=== PATIENT | female | born 1985 | race Caucasian/White ===

== ENCOUNTER 2019-02-16 15:37 | Emergency (ER) | payer OTHER ==
[~2019-02-16] VITALS: Ht 167.6 cm; Wt 72.6 kg
[~2019-02-16 15:37] MED LIST: AMOXICILLIN875 MG PO; IBUPROFEN800 MG PO; NORCO 5-325 TA1 EACH PO; PROTONIX40 MG PO
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
[2019-02-16] MEDS ORDERED: CYCLOBENZAPRINE5 MG PO (17:36)
[2019-02-16] MEDS ORDERED: NAPROSYN500 MG PO (17:36)
== END 2019-02-16 17:50 | disposition home or self-care (01) ==
LOC: ED 15:37
DX: S16.1XXA Strain of muscle, fascia and tendon at neck level, initial encounter (principal); Z87.442 Personal history of urinary calculi; V49.9XXA Car occupant (driver) (passenger) injured in unspecified traffic accident, initial encounter
CPT/HCPCS: 99283

== ENCOUNTER 2019-02-17 15:01 | Emergency (ER) | payer OTHER ==
[~2019-02-17] VITALS: Ht 167.6 cm; Wt 72.6 kg
[~2019-02-17 15:01] MED LIST changes: +CYCLOBENZAPRINE5 MG PO; +NAPROSYN500 MG PO
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
== END 2019-02-17 16:25 | disposition home or self-care (01) ==
LOC: ED 15:01
DX: S16.1XXA Strain of muscle, fascia and tendon at neck level, initial encounter (principal); Z87.442 Personal history of urinary calculi; V89.2XXA Person injured in unspecified motor-vehicle accident, traffic, initial encounter
CPT/HCPCS: 72040; 99283

== ENCOUNTER 2019-09-20 17:57 | Emergency (ER) | payer OTHER ==
[~2019-09-20] VITALS: Ht 167.6 cm; Wt 72.6 kg
--- OUTSIDE RECORDS SUMMARY | ~2019-09-20 | XMS | Encounter Summary ---
Demographics + + + | Address | [address] | | | [place] [address] | + + + | Home Phone | | + + + | Preferred Language | Unknown | + + + | Marital Status | Single | + + + | Moravian Affiliation | 1013 | + + + | Race | Unknown | + + + | Ethnic Group | Unknown | + + + Author + + + | Author | [facility] | | | and [place] | + + + | Organization | [facility] | | | and [place] | + + + | Address | Unknown | + + + | Phone | Unavailable | + + + Support + + +---------+ + | Name | Relationship | Address | Phone | + + +---------+ + | Kirti Colon | ECON | Unknown | | + + +---------+ + | Cindyjennifer Butcher | ECON | Unknown | | + + +---------+ + Care Team Providers + +------+ + | Care Gusset Stitcher Name | Role | Phone | + +------+ + PCP | Unavailable | + +------+ + Encounter Details +--------+ + + + + | Date | Type | Department | Care Team | Description | +--------+ + + + + | 03/30/ | Hospital | [facility] | Memo Naidu T | | | 2005 | Encounter | [facility] | [address] | | | | | [address] | [place] [address] | | | | | [address] | [phone] | | | | | [place], [place] | | | | | | [address] | | | | | | [phone] | | | +--------+ + + + + Social History + +-------+ +--------+------+ | Tobacco Use | Types | Packs/Day | Years | Date | | | | | Used | | + +-------+ +--------+------+ | Never Assessed | | | | | + +-------+ +--------+------+ + + + | Sex Assigned at | Date Recorded | | | | + + + | Not on file | | + + + + + + + | Job Start Date | Occupation | Industry | + + + + | Not on file | Not on file | Not on file | + + + + + + + + | Travel History | Travel Start | Travel End | + + + + + + | No recent travel history available. | + + documented as of this encounter Plan of Treatment Not on filedocumented as of this encounter Visit Diagnoses Not on filedocumented in this encounter"
--- OUTSIDE RECORDS SUMMARY | ~2019-09-20 | XMS | Encounter Summary ---
Demographics + + + | Address | [address] | | | [place] [address] | + + + | Home Phone | | + + + | Preferred Language | Unknown | + + + | Marital Status | Single | + + + | Congregation Affiliation | 1013 | + + + | Race | Unknown | + + + | Ethnic Group | Unknown | + + + Author + + + | Author | [facility] | | | and [place] | + + + | Organization | [facility] | | | and [place] | + + + | Address | Unknown | + + + | Phone | Unavailable | + + + Support + + +---------+ + | Name | Relationship | Address | Phone | + + +---------+ + | Kirti Colon | ECON | Unknown | | + + +---------+ + | Cindy Butcher | ECON | Unknown | | + + +---------+ + Care Team Providers + +------+ + | Care Security Specialist Name | Role | Phone | + +------+ + | Gordon Rivero MD | PCP | | + +------+ + Encounter Details +--------+ + + + + | Date | Type | Department | Care Team | Description | +--------+ + + + + | 02/22/ | Hospital | [facility] | Abundio Taveras MD [address] | Flank pain; | | 2013 | Encounter | [facility] | [address] | Menorrhagia | | | | CLINICAL LAB SERVS | [place] [address] | | | | | [address] | [phone] | | | | | [place], [place] | | | | | | [address] | | | | | | [phone] | | | +--------+ + + + + Social History + + + +--------+------+ | Tobacco Use | Types | Packs/Day | Years | Date | | | | | Used | | + + + +--------+------+ | Current Every Day | Cigarettes | 0.25 | 3 | | | Smoker | | | | | + + + +--------+------+ + +---+---+---+ | Smokeless Tobacco: | | | | | Never Used | | | | + +---+---+---+ + + +---------+ + | Alcohol Use | Drinks/Week | oz/Week | Comments | + + +---------+ + | Yes | | | Last ETOH 11/2012 | + + +---------+ + + + + | Sex Assigned at [...] + + documented as of this encounter Medications at Time of Discharge + + + +---------+ + + | Medication | Sig | Dispensed | Refills | Start | End Date | | | | | | Date | | + + + +---------+ + + | cholecalciferol | Take 2 tablets by | 60 each | 12 | 10/15/19 | | | (VITAMIN D-3) 2000 | mouth Daily. For | | | 14 | | | UNITS TABS | . | | | | | + + + +---------+ + + | docusate sodium | Take 1-2 capsules by | 60 | 2 | 08/28/20 | | | (COLACE) 100 mg | mouth Daily. | capsule | | 13 | | | capsuleIndications: | | | | | | | Constipation in | | | | | | | | | | | | | + + + +---------+ + + | ibuprofen | Take 1 tablet by | 60 | 0 | 10/15/19 | | | (ADVIL,MOTRIN) 600 | mouth every 8 hours | tablet | | 14 | | | MG tablet | as needed for Pain. | | | | | + + + +---------+ + + | | Take 1 tablet by | 90 | 4 | 08/28/20 | | | multivitamin | mouth Daily. | tablet | | 13 | | | tabletIndications: | | | | | | | Supervision of other | | | | | | | normal | | | | | | + + + +---------+ + + | albuterol (PROAIR | Inhale 2 puffs into | 2 | 2 | 08/28/20 | | | HFA) 90 mcg/puff | the lungs every 6 | Inhaler | | 13 | 4 | | inhalerIndications: | hours as needed for | | | | | | Asthma | Wheezing. | | | | | + + + +---------+ + + | nitrofurantoin | Take 1 capsule by | 20 | 0 | 02/23/20 | | | (MACROBID) 100 mg | mouth 2 times daily | capsule | | 14 | 4 | | capsuleIndications: | for 10 days. | | | | | | UTI (lower urinary | | | | | | | tract infection) | | | | | | + + + +---------+ + + documented as of this encounter Plan of Treatment Not on filedocumented as of this encounter Procedures + +--------+ + + + | Procedure Name | Priori | Date/Time | Associated Diagnosis | Comments | | | ty | | | | + +--------+ + + + | HCG, URINE, QUAL | Routin | 02/22/2014 | Flank pain | Results for this | | | e | 3:42 PM | Menorrhagia | procedure are in the | | | | PDT | | results section. | + +--------+ + + + | URINALYSIS WITH | Routin | 02/22/2014 | Flank pain | Results for this | | MICROSCOPIC WITH | e | 2:54 PM | | procedure are in the | | CULTURE IF INDICATED | | PDT | | results section. | + +--------+ + + + | CULTURE, URINE | Routin | 02/22/2014 | | Results for this | | | e | 2:54 PM | | procedure are in the | | | | PDT | | results section. | + +--------+ + + + documented in this encounter Results HCG, Urine, Qual (02/22/2014 3:42 PM PDT) + + + +------- ------+ + | Component | Value | Ref Range | Perfor med | Pathologist | | | | | At | Signature | + + + +------- ------+ + | | NegComment: Performed | | [facility] | | | Test, | by [facility] [address] | | [address] [facility] [address] | | | Urine, POC | [address] [facility] [address] | | CORE | | | |Performed by [facility] [address] [facility] [address] | | LABORA TORY | | + + + +------- ------+ + + + | Specimen | + + | Urine specimen | | (specimen) - Urine, | | Unspecified Source | + + + + + + + | Performing | Address | City/State/Zipcode | Phone Number | | Organization | | | | + + + + + | [facility] | [address] [place] [address] [place] | [place] [address] | [phone] | | [facility] | | | | | LABORATORY | | | | + + + + + Urinalysis with Microscopic with Culture if Indicated (02/22/2014 2:54 PM PDT) + + + +-- + + | Component | Value | Ref Range | P erformed | Pathologist | | | | | A t | Signature | + + + +-- + + | CULTURE | Yes | | [facility] | | | SENT | | | [facility] | | | | | | [facility] | | | | | | L ABORATORY | | + + + +-- + + | Color, | Straw | | [facility] | | | Urine | | | [facility] | | | | | | C [facility] | | | | | | L ABORATORY | | + + + +-- + + | Clarity | Hazy | | [facility] | | | | | | [facility] | | | | | | C O[facility] | | | | | | L ABORATORY | | + + + +-- + + | Glucose, | Negative | Negative | [facility] | | | Urine | | | [facility] | | | | | | C ORE | | | | | | L ABORATORY | | + + + +-- + + | Ketones, | Negative | Negative | [facility] | | | Urine | | | [facility] | | | | | | C ORE | | | | | | L ABORATORY | | + + + +-- + + | Bilirubin, | Negative | Negative | [facility] | | | Urine | | | [facility] | | | | | | C ORE | | | | | | L ABORATORY | | + + + +-- + + | Specific | 1.005 (A) | 1.005 - 1.030 | [facility] | | | [place] | | | [facility] | | | | | | C ORE | | | | | | L ABORATORY | | + + + +-- + + | pH, Urine | 5.5 | 5.0 - 9.0 | [facility] | | | | | | [facility] | | | | | | C ORE | | | | | | L ABORATORY | | + + + +-- + + | Protein, | Negative | Negative | [facility] | | | Urine | | | [facility] | | | | | | C ORE | | | | | | L ABORATORY | | + + + +-- + + | Nitrite, | Negative | Negative | [facility] | | | Urine | | | [facility] | | | | | | C ORE | | | | | | L ABORATORY | | + + + +-- + + | Blood, | Negative | Negative | [facility] | | | Urine | | | [facility] | | | | | | C ORE | | | | | | L ABORATORY | | + + + +-- + + | Leukocyte | Large (A) | Negative | [facility] | | | Esterase, | | | [facility] | | | Urine | | | C [facility] | | | | | | L ABORATORY | | + + + +-- + + | SQUAMOUS | <1 | 0 - 2 /hpf | [facility] | | | EPITHELIAL | | | [facility] | | | UA | | | C ORE | | | | | | L ABORATORY | | + + + +-- + + | WBC UA | 46 (H) | 0 - 5 /hpf | [facility] | | | | | | [facility] | | | | | | C ORE | | | | | | L ABORATORY | | + + + +-- + + | RBC UA | 0 | 0 - 5 /hpf | [facility] | | | | | | [facility] | | | | | | C ORE | | | | | | L ABORATORY | | + + + +-- + + | BACTERIA UA | 1+ (A) | None | [facility] | | | | | | [facility] | | | | | | C ORE | | | | | | L ABORATORY | | + + + +-- + + | AMORPHOUS | None | None | [facility] | | | CRYSTALS | | | [facility] | | | | | | C ORE | | | | | | L ABORATORY | | + + + +-- + + | MUCUS UA | NoneComment: Performed | None | [facility] | | | | by [facility] [address] | | [facility] | | | | [place] [address] | | C ORE | | | |Performed by [facility] [address] [place] [address] | | L ABORATORY | | + + + +-- + + + + | Specimen | + + | Urine specimen | | (specimen) | + + + + + + + | Performing | Address | City/State/Zipcode | Phone Number | | Organization | | | | + + + + + | [facility] | [address] | [place] [address] | [phone] | | [facility] | | | | | LABORATORY | | | | + + + + + Culture, Urine (02/22/2014 2:54 PM PDT) + + + + + + | Component | Value | Ref Range | Performed | Pathologist | | | | | At | Signature | + + + + + + | FINAL | Greater than 100,000 | | [facility] | | | REPORT | cfu/ml Escherichia coli | | [facility] | | | | | | CORE | | | | | | LABORATORY | | + + + + + + | Organism | EsccolComment: | | [facility] | | | Type | Performed by [facility] | | [facility] | | | | [address] | | CORE | | | | [place] [address] | | LABORATORY | | + + + + + + + + | Specimen | + + | Urine specimen | | (specimen) | + + + + + + + | Organism | Antibiotic | Method | Susceptibility | + + + + + | Escherichia coli | Amoxicillin + | MINIMUM INHIBITORY | 8: Sensitive | | | Clavulanate | CONCENTRATION | | + + + + + | Escherichia coli | Ampicillin | MINIMUM INHIBITORY | >=32: Resistant | | | | CONCENTRATION | | + + + + + | Escherichia coli | Ampicillin + | MINIMUM INHIBITORY | >=32: Resistant | | | Sulbactam | CONCENTRATION | | + + + + + | Escherichia coli | Cefazolin | MINIMUM INHIBITORY | <=4: Sensitive | | | | CONCENTRATION | | + + + + + | Escherichia coli | Ceftriaxone | MINIMUM INHIBITORY | <=1: Sensitive | | | | CONCENTRATION | | + + + + + | Escherichia coli | Ciprofloxacin | MINIMUM INHIBITORY | <=0.25: Sensitive | | | | CONCENTRATION | | + + + + + | Escherichia coli | Ertapenem | MINIMUM INHIBITORY | <=0.5: Sensitive | | | | CONCENTRATION | | + + + + + | Escherichia coli | Gentamicin | MINIMUM INHIBITORY | <=1: Sensitive | | | | CONCENTRATION | | + + + + + | Escherichia coli | Levofloxacin | MINIMUM INHIBITORY | <=0.12: Sensitive | | | | CONCENTRATION | | + + + + + | Escherichia coli | Nitrofurantoin | MINIMUM INHIBITORY | <=16: Sensitive | | | | CONCENTRATION | | + + + + + | Escherichia coli | Piperacillin + | MINIMUM INHIBITORY | <=4: Sensitive | | | Tazobactam | CONCENTRATION | | + + + + + | Escherichia coli | Tobramycin | MINIMUM INHIBITORY | <=1: Sensitive | | | | CONCENTRATION | | + + + + + | Escherichia coli | Trimethoprim + | MINIMUM INHIBITORY | <=20: Sensitive | | | Sulfamethoxazole | CONCENTRATION | | + + + + + +---+ + | | Comment: Performed | | | by [facility] [address] [place] | | | [place] [address] | +---+ + + + + + + | Performing | Address | City/State/Zipcode | Phone Number | | Organization | | | | + + + + + | [facility] | [address] | [place], [place] [address] | [phone] | | [facility] | | | | | LABORATORY | | | | + + + + + documented in this encounter Visit Diagnoses + + | Diagnosis | + + | Flank pain Abdominal pain, unspecified site | + + | Menorrhagia Excessive or frequent menstruation | + + documented in this encounter"
--- OUTSIDE RECORDS SUMMARY | ~2019-09-20 | XMS | Encounter Summary ---
Demographics + + + | Address | [address] | | | [place] [address] | + + + | Home Phone | | + + + | Preferred Language | Unknown | + + + | Marital Status | Single | + + + | Pentecostalism Affiliation | 1013 | + + + | Race | Unknown | + + + | Ethnic Group | Unknown | + + + Author + + + | Author | [facility] | | | and [place] | + + + | Organization | [facility] | | | and [place] | + + + | Address | Unknown | + + + | Phone | Unavailable | + + + Support + + +---------+ + | Name | Relationship | Address | Phone | + + +---------+ + | Kirti Colon | ECON | Unknown | | + + +---------+ + | Cindy Hadley | ECON | Unknown | | + + +---------+ + Care Team Providers + +------+ + | Care Breakfast Manager Name | Role | Phone | + +------+ + | Camelia Alvarenga MD | PCP | | + +------+ + Encounter Details +--------+ + + + + | Date | Type | Department | Care Team | Description | +--------+ + + + + | 09/17/ | Abstract | [facility] | Camelia Alvarenga, | Depression; | | 2011 | | Group [facility] | Retired | Anxiety; | | | | Family Medicine | | Eczema; | | | | [address] [address] [facility] | | Bladder infection; | | | | - [address] | | Insomnia | | | | [place], [place] | | | | | | [address] | | | | | | [phone] | | | +--------+ + + + [...] | + +--------+ + + + | PAP SMEAR | Routin | 09/13/2010 | | | | | e | 4:17 PM | | | | | | PST | | | + +--------+ + + + documented in this encounter Results Pap Smear (09/13/2010 4:17 PM PST) + + | Specimen | + + | PAP LBC | + + documented in this encounter Visit Diagnoses + + | Diagnosis | + + | Depression Depressive disorder, not elsewhere classified | + + | Anxiety Anxiety state, unspecified | + + | Eczema Contact dermatitis and other eczema, due to unspecified cause | + + | Bladder infection Cystitis, unspecified | + + | Insomnia Insomnia, unspecified | + + documented in this encounter"
--- OUTSIDE RECORDS SUMMARY | ~2019-09-20 | XMS | Encounter Summary ---
Demographics + + + | Address | [address] | | | [place] [address] | + + + | Home Phone | | + + + | Preferred Language | Unknown | + + + | Marital Status | Single | + + + | Religion Affiliation | 1013 | + + + | Race | Unknown | + + + | Ethnic Group | Unknown | + + + Author + + + | Author | [facility] | | | and [place] | + + + | Organization | [facility] | | | [...] Team Providers + +------+ + | Care Sewing Machines Salesperson Name | Role | Phone | + +------+ + | Gordon Rivero MD | PCP | | + +------+ + Reason for Visit + + + | Reason | Comments | + + + | Routine | 37+3 | | Visit | | + + + Encounter Details +--------+ + + + + | Date | Type | Department | Care Team | Description | +--------+ + + + + | 10/04/ | Routine | [facility] | Gordon Rivero MD | GA: 37w3d | | 2014 | | [facility] | [address] | | | | | [facility] [address] | [place] [address] | | | | | [address] [place] | [phone] | | | | | [place] | | | | | | [address] | | | | | | [phone] | | | +--------+ + + + [...] + + documented as of this encounter Last Filed Vital Signs + + + + + | Vital Sign | Reading | Time Taken | Comments | + + + + + | Blood Pressure | 110/60 | 10/04/2013 10:03 AM | | | | | PST | | + + + + + | Pulse | - | - | | + + + + + | Temperature | - | - | | + + + + + | Respiratory Rate | - | - | | + + + + + | Oxygen Saturation | - | - | | + + + + + | Inhaled Oxygen | - | - | | | Concentration | | | | + + + + + | Weight | 92.4 kg (203 lb 12.8 | 10/04/2013 10:03 AM | | | | oz) | PST | | + + + + + | Height | - | - | | + + + + + | Body Mass Index | 32.89 | 09/14/2013 8:46 PM | | | | | PST | | + + + + + documented in this encounter Progress Notes Gordon Rivero MD - 10/04/2013 10:50 AM PST28 y.o. A POS @ 37w3d by 27wk US, here f or routine OB visit. Good movement, no vaginal d/c or bleeding, no dysuria, no constipation. Fundal height, FHT, weight gain and vital signs are appropriate. Recent labs reviewed and reassuring including GBS negative and repeat infectious disease te sting negative. UDS + for opiates. Again states she has no explanation but denies relapse. Routine care, reinforced we are available to help with relapse and resources, and discussed the following today: s/sx ROM. F/u 1 weeks for ROB rvind lara, Samaria Hoover MD - 10/04/2013 10:42 AM PST Janie Pinedo is a 28 y. o. A POS female being seen today for her obstetrical visit by Gordon Rivero MD . Sh e is at 37w3d weeks gestation. Patient reports no complaints. movement: normal. Patient's last menstrual period was 01/21/2013.. SAMMY is 10/22/2013, by Ultrasound Late to care, last heroin May - UDS last week + for opiates. S=D [place] OCP - will need prog only solution while BFing. Assessment and Plan: rtc in 1 week. MFM for enlarged ventricles. F/u Wednesday. documented in th is encounter Plan of Treatment Not on filedocumented as of this encounter Results Drugs of Abuse, Screen, Urine (10/04/2013 12:00 PM PST) + + + + + + | Component | Value | Ref Range | Performed | Pathologist | | | | | At | Signature | + + + + + + | Tox Comment | See NoteComment: Drug | | [facility] | | | | screen results are for | | [facility] | | | | medical use only. Use | | [facility] | | | | for legal or | | LABORATORY | | | | disciplinary purposes | | | | | | requires confirmation by | | | | | | alternatemethods. | | | | + + + + + + | THC 20 | Negative | 0 - 20 ng/mL | [facility] | | | URINE | | | [facility] | | | | | | CORE | | | | | | LABORATORY | | + + + + + + | Cocaine | Negative | 0 - 300 ng/mL | [facility] | | | | | | [facility] | | | | | | CORE | | | | | | LABORATORY | | + + + + + + | Amphetamine | Negative | 0 - 1000 ng/mL | [facility] | | | | | | [facility] | | | | | | CORE | | | | | | LABORATORY | | + + + + + + | Opiate | Negative | 0 - 300 ng/mL | [facility] | | | Screen, | | | [facility] | | | Urine | | | CORE | | | | | | LABORATORY | | + + + + + + | Benzodiazep | Negative | 0 - 200 ng/mL | [facility] | | | sanya | | | [facility] | | | Screen, | | | CORE | | | Urine | | | LABORATORY | | + + + + + + | ALCOHOL, | Negative | 0 - 50 | [facility] | | | URINE | | | [facility] | | | | | | CORE | | | | | | LABORATORY | | + + + + + + | Creatinine, | 68.30 | >=20.00 mg/dL | [facility] | | | Urine | | | [facility] | | | | | | CORE | | | | | | LABORATORY | | + + + + + + | pH, Urine | 6.7 | 5.0 - 8.0 | [facility] | | | | | | [facility] | | | [...] + | [facility] | [address] | [place] [address] | [phone] | | [facility] | | | | | LABORATORY | | | | + + + + + documented in this encounter Visit Diagnoses + + | Diagnosis | + + | Supervision of other normal - Primary | + + | Polysubstance abuse (HCC) Other, mixed, or unspecified nondependent drug abuse, | | unspecified | + + documented in this encounter"
--- OUTSIDE RECORDS SUMMARY | ~2019-09-20 | XMS | Encounter Summary ---
Demographics + + + | Address | [address] | | | [place] [address] | + + + | Home Phone | | + + + | Preferred Language | Unknown | + + + | Marital Status | Single | + + + | Tenriism Affiliation | 1013 | + + + | Race | Unknown | + + + | Ethnic Group | Unknown | + + + Author + + + | Author | [facility] | | | and [place] | + + + | Organization | [facility] | | | and [place] | + + + | Address | Unknown | + + + | Phone | Unavailable | + + + Support + + +---------+ + | Name | Relationship | Address | Phone | + + +---------+ + | Kirit Colon | ECON | Unknown | | + + +---------+ + | Cindy Butcher | ECON | Unknown | | + + +---------+ + Care Team Providers + +------+ + | Care Ruby On Rails Developer Name | Role | Phone | + +------+ + | Gordon Rivero MD | PCP | | + +------+ + Reason for Visit + + + | Reason | Comments | + + + | Appointment | Missed IUD appt | + + + Encounter Details +--------+ + + + + | Date | Type | Department | Care Team | Description | +--------+ + + + + | 01/08/ | Telephone | [facility] | Gordon Rivero MD | Appointment (Missed | | 2013 | | [facility] | [address] | IUD appt) | | | | [facility] [address] | [place] [address] | | | | | SE[place] MD | [phone] | | | | | [place] | | | | | | [address] | | | | | | [phone] | | | +--------+ + + + [...]
--- OUTSIDE RECORDS SUMMARY | ~2019-09-20 | XMS | Encounter Summary ---
Demographics + + + | Address | [address] | | | [place] [address] | + + + | Home Phone | | + + + | Preferred Language | Unknown | + + + | Marital Status | Single | + + + | Adventist Affiliation | 1013 | + + + | Race | Unknown | + + + | Ethnic Group | Unknown | + + + Author + + + | Author | [facility] | | | and [place] | + + + | Organization | [facility] | | | [...] Team Providers + +------+ + | Care Mattress Finisher Name | Role | Phone | + +------+ + | Gordon Rivero MD | PCP | | + +------+ + Reason for Visit + + + | Reason | Comments | + + + | Flank Pain | X 2 days- no fever | + + + Encounter Details +--------+---------+ + + + | Date | Type | Department | Care Team | Description | +--------+---------+ + + + | 02/22/ | Office | [facility] | Abundio Taveras MD [address] | Flank pain (Primary | | 2013 | Visit | [facility] | [facility] | Dx); UTI (lower | | | | [facility] [address] | [place] [address] | urinary tract | | | | [facility] [place] | [phone] | infection); | | | | [place], [place] | | Menorrhagia | | | | [address] | | | | | | [phone] | | | +--------+---------+ + + + Social History + + [...] + + + | Blood Pressure | 110/72 | 02/22/2014 2:24 PM | | | | | PDT | | + + + + + | Pulse | 84 | 02/22/2014 2:24 PM | | | | | PDT | | + + + + + | Temperature | 36.2 C (97.2 F) | 02/22/2014 2:24 PM | | | | | PDT | | + + + + + | Respiratory Rate | 20 | 02/22/2014 2:24 PM | | | | | PDT | | + + + + + | Oxygen Saturation | - | - | | + + + + + | Inhaled Oxygen | - | - | | | Concentration | | | | + + + + + | Weight | 74.2 kg (163 lb 9 | 02/22/2014 2:24 PM | | | | oz) | PDT | | + + + + + | Height | 167.6 cm (5' 6") | 02/22/2014 2:24 PM | | | | | PDT | | + + + + + | Body Mass Index | 26.4 | 02/22/2014 2:24 PM | | | | | PDT | | + + + + + documented in this encounter Patient Instructions Patient Instructions Abundio Taveras MD - 02/22/2014 2:56 PM PDT Bladder Infection,Female (Adult) A bladder infection ("cystitis" or "UTI") usually causes a constant urge to urinate and a b urning when passing urine. Urine may be cloudy, smelly or dark. There may be pain in the low er abdomen. A bladder infection occurs when bacteria from the vaginal area enter the bladder opening (urethra). This can occur from sexual intercourse, wearing tight clothing, dehydrat ion and other factors. Home Care: Drink lots of fluids (at least 6-8 glasses a day, unless you must restrict fluids for ot her medical reasons). This will force the medicine into your urinary system and flush the ba cteria out of your body. Avoid sexual intercourse until your symptoms are gone. Avoid caffeine, alcohol and spicy foods. These can irritate the bladder. A bladder infection is treated with antibiotics. You may also be given Pyridium (generic = phenazopyridine) to reduce the burning sensation. This medicine will cause your urine to become a bright orange color. The orange urine may stain clothing. You may wear a pad or hernández ty-liner to protect clothing. Preventing Future Infections: Always wipe from front to back after a bowel movement. Keep the genital area clean and dry. Drink plenty of fluids each day to avoid dehydration. Both sexual partners should wash before intercourse. Urinate right after intercourse to flush out the bladder. Wear cotton underwear and cotton-lined panty hose; avoid tight-fitting pants. If you are on control pills and are having frequent bladder infections, discuss wi th your doctor. Follow Up: Return to this facility or see your doctor if ALL symptoms are not gone after three days of treatment. Get Prompt Medical Attention if any of the following occur: Fever of 100.4F (38C) or higher, or as directed by your healthcare provider No improvement by the third day of treatment Increasing back or abdominal pain Repeated vomiting; unable to keep medicine down Weakness, dizziness or fainting Vaginal discharge Pain, redness or swelling in the labia (outer vaginal area) [id number] [facility], [address] [place] [address], [place] [address]. All rights reserve d. This information is not intended as a substitute for professional medical care. Always fo llow your healthcare professional's instructions. documented in this encounter Progress Notes Abundio Taveras MD - 02/22/2014 5:27 PM PDTThe patient was seen with the medical student and I confirmed the pertinent history. I confirmed pertinent physical exam findings, and agree with physical exam as documented. The indications for treatment were reviewed and I agree with the overall assessment and car e plan as documented. Abundio Taveras bundio Taveras MD - 02/22/2014 3:01 PM PDT Subjective: Patient ID: Janie Yoo is a 28 y.o. female with a history of kidney s tones and recurrent cystitis who presents with R flank pain. HPI Patient has had two days of stabbing R back pain. She feels fatigued and states that her pa in feels similar to when she had both kidney stones and previous UTIs. She denies dysuria, frequency, urgency, hematuria, dyspareunia, nausea, vomiting and fever. She complains of chills and suprapubic pain. Patient has been off contraception since December, previously on Depo. Has had sporadic and lo ng-lasting menses since December. She states that she is currently having her menses. She state s it is possible that she could be . Patient's medications, allergies, past medical, surgical, social and family histories were reviewed and updated as appropriate. Review of Systems Constitutional: Positive for chills and fatigue. Negative for fever. Respiratory: Negative for shortness of breath. Cardiovascular: Negative for palpitations. Gastrointestinal: Positive for abdominal pain. Negative for nausea and vomiting. Genitourinary: Positive for flank pain. Negative for dysuria, urgency, frequency, hematuria , decreased urine volume, difficulty urinating and dyspareunia. Objective: Physical Exam Constitutional: She is oriented to person, place, and time. She appears well-developed and well-nourished. HENT: Head: Normocephalic and atraumatic. Neck: Normal range of motion. Cardiovascular: Regular rhythm and intact distal pulses. Exam reveals no gallop and no fri ction rub. No murmur heard. Slightly tachycardic Pulmonary/Chest: Effort normal and breath sounds normal. No respiratory distress. She has n o wheezes. She has no rales. She exhibits no tenderness. Abdominal: Soft. Bowel sounds are normal. She exhibits no distension and no mass. There is tenderness. There is guarding. Suprapubic tenderness Musculoskeletal: R flank pain Neurological: She is alert and oriented to person, place, and time. Urinalysis: + for moderate leukocyte esterase Trace blood Assessment: Janie Yoo is a 28 y.o. female with a history of kidney stones and re current cystitis who presents with suspected UTI. The patient has suprapubic pain and positi ve leukocyte esterase in the urine. She is afebrile and has R flank pain vs. R CVA tendernes s, so very unlikely to be pyelonephritis. The patient is currently having her menses so she is unlikely to be , although she has not been using contraception since December so it is possible that she could be . Plan: - F/u on urine test - Begin Nitrofurantoin 100 mg BID for 5 days, which would be safe to use if patient is preg nant - Patient understands that if she develops a fever, increased back pain, or dysuria to cont act the clinic or go to the ED NOTE: UPT was negative docum ented in this encounter Plan of Treatment Not on filedocumented as of this encounter Results HCG, Urine, Qual (02/22/2014 [...] | | | Urine, POC | Rd [address] [facility] [address] | | CORE | | | |Performed by [facility] [address] [facility] [address] | | LABORA TORY | | + [...] + + | [facility] | [address] | [place] [address] | [phone] | | [facility] | | | [...] | SENT | | | S T [facility] | [...] 1.030 | [facility] | | | [place] | | | S T [facility] | [...] | EPITHELIAL | | | S T [facility] | | | UA | | | [...] [facility] | | | | by [facility] [address] | [address] | | | | [place] [address] | | C ORE | | | |Performed by [facility] [address] [place] [address] | | L ABORATORY | | + + + +-- + + + + | Specimen | + + | Urine specimen | | (specimen) | + + + + + + + | Performing | Address | City/State/Zipcode | Phone Number | | Organization | | | | + + + + + | [facility] | [address] | [place] [address] | [phone] | | [facility] | | | | | LABORATORY | | | | + + + + + documented in this encounter Visit Diagnoses + + | Diagnosis | + + | Flank pain - Primary Abdominal pain, unspecified site | + + | UTI (lower urinary tract infection) Urinary tract infection, site not specified | + + | Menorrhagia Excessive or frequent menstruation | + + documented in this encounter
--- OUTSIDE RECORDS SUMMARY | ~2019-09-20 | XMS | Encounter Summary ---
Demographics + + + | Address | [address] | | | [place] [address] | + + + | Home Phone | | + + + | Preferred Language | Unknown | + + + | Marital Status | Single | + + + | Evangelical Affiliation | 1013 | + + + | Race | Unknown | + + + | Ethnic Group | Unknown | + + + Author + + + | Author | [facility] | | | and [place] | + + + | Organization | [facility] | | | [...] Team Providers + +------+ + | Care Retail Office Associate Name | Role | Phone | + +------+ + | Gordon Rivero MD | PCP | | + +------+ + Reason for Visit + + + | Reason | Comments | + + + | Care | here for pp check. Delivered 10/13/13 | + + + Encounter Details +--------+---------+ + + + | Date | Type | Department | Care Team | Description | +--------+---------+ + + + | 11/22/ | Office | [facility] | Gordon Rivero MD | care and | | 2013 | Visit | [facility] | [address] | examination (Primary | | | | [facility] [address] | [place] [address] | Dx); Dental | | | | [place] | [phone] | infection; | | | | [place], [place] | | Contraception | | | | [address] | | management; | | | | [phone] | | Polysubstance abuse; | | | | | | Encounter for | | | | | | smoking cessation | | | | | | counseling | +--------+---------+ + + + Social History [...] + + + | Blood Pressure | 108/64 | 11/22/2013 8:36 AM | | | | | PDT | | + + + + + | Pulse | 78 | 11/22/2013 8:36 AM | | | | | PDT | | + + + + + | Temperature | 36.6 C (97.8 F) | 11/22/2013 8:36 AM | | | | | PDT | | + + + + + | Respiratory Rate | 16 | 11/22/2013 8:36 AM | | | | | PDT | | + + + + + | Oxygen Saturation | - | - | | + + + + + | Inhaled Oxygen | - | - | | | Concentration | | | | + + + + + | Weight | 84.8 kg (187 lb) | 11/22/2013 8:36 AM | | | | | PDT | | + + + + + | Height | - | - | | + + + + + | Body Mass Index | 30.18 | 10/13/2013 8:44 AM | | | | | PST | | + + + + + documented in this encounter Patient Instructions Patient Instructions Kalli Anglin CMA - 11/22/2013 8:38 AM PDT Thank you for your recent visit. You may receive a survey in the mail, by returning the gonzales vey your input will help us improve. Thank you documented in this encounter Progress Notes Alexandrea Porras MD - 11/22/2013 9:05 AM PDTThe patient's medical care was reviewed during or immediately after the visit with the resident. The review included the patient's medica l history and diagnosis, the resident s findings on physical examination, and the treatmen t plan. I agree with the overall assessment and care plan. Any additional comments included below. Alexandrea Porras ordon Rivero MD - 0 11/22/2013 8:33 AM PDT Janie Yoo is a 28 y.o. female here for 6wk check from with 2nd deg perineal laceration repaired, bilateral periurethral 1st deg not repaired. De po-provera given after delivery. Also h/o dental infection and polysubstance abuse. No complaints today. Has not resumed sexual relations. vaginal bleeding finally stopped 1 -2 weeks ago. Denies depression. Has moved from friends house in with father of baby & sta yon good relationship. No drug cravings or relapse. Down to 2-3 cigarettes/day and thinkin g about quitting. exclusively without pain. Still wants Mirena. ROS: as per HPI and as noted below (blanks were not pertinent or not reviewed). Gen: Eye: HENT: Lymph: Resp: no SOB CV: no lightheadedness GI: : Skin: MSK: Neuro: Psy: PMH, FHx, SHx: above Physical Exam LMP 01/21/2013 | ? Unknown General: NAD, pleasant, appears stated age. Eye: sclera clear HENT: mucosa pink and moist. Right lower jaw slightly erythematous, improved from prior; p oor & broken teeth. CV: RRR no M/R/G Lung: respiration unlabored. CTA : bimanual exam with kalli as ditch tender. perineal laceration healed without evidence of seroma. Uterus fully involuted. No adnexal mass or tenderness. Psych: mood & affect bright, thought form logical and speech organized. Assessment/Plan: 1. care and examination Doing well 2. Dental infection Pt and I will call [facility] to request they see her, since they did initial ev aluation (pt states they now say they have too large a backlog to see her) 3. Contraception management Mirena counseling performed 4. Polysubstance abuse Support offered 5. Smoking cessation Advised set quit date & tell friends Follow-Up: 2 weeks for Connie Case discussed with Dr Porras. documented in this enco unter Plan of Treatment Not on filedocumented as of this encounter Visit Diagnoses + + | Diagnosis | + + | care and examination - Primary Routine follow-up | + + | Dental infection Acute apical periodontitis of pulpal origin | + + | Contraception management Unspecified contraceptive management | + + | Polysubstance abuse (HCC) Other, mixed, or unspecified nondependent drug abuse, | | unspecified | + + | Encounter for smoking cessation counseling Counseling on substance use and abuse | + + documented in this encounter"
--- OUTSIDE RECORDS SUMMARY | ~2019-09-20 | XMS | Encounter Summary ---
Demographics + + + | Address | [address] | | | [place] [address] | + + + | Home Phone | | + + + | Preferred Language | Unknown | + + + | Marital Status | Single | + + + | Yazidi Affiliation | 1013 | + + + | Race | Unknown | + + + | Ethnic Group | Unknown | + + + Author + + + | Author | [facility] | | | and [place] | + + + | Organization | [facility] | | [...] Team Providers + +------+ + | Care Gun Stock Maker Name | Role | Phone | + +------+ + PCP | Unavailable | + +------+ + Encounter Details +--------+ + + + + | Date | Type | Department | Care Team | Description | +--------+ + + + + | 03/30/ | Hospital | [facility] | Memo Naidu T | | | 2005 | Encounter | [facility] | [address] | | | | | [address] | [place] [address] | | | | | [address] | [phone] | | | | | [place], [place] | | | | | | [address] | | | | | | [phone] | | | +--------+ + + + [...]
--- OUTSIDE RECORDS SUMMARY | ~2019-09-20 | XMS | Encounter Summary ---
Demographics + + + | Address | [address] | | | [place] [address] | + + + | Home Phone | | + + + | Preferred Language | Unknown | + + + | Marital Status | Single | + + + | Oriental Orthodox Affiliation | 1013 | + + + | Race | Unknown | + + + | Ethnic Group | Unknown | + + + Author + + + | Author | [facility] | | | and [place] | + + + | Organization | [facility] | | | and [place] | + + + | Address | Unknown | + + + | Phone | Unavailable | + + + Support + + +---------+ + | Name | Relationship | Address | Phone | + + +---------+ + | Kirti Colon | ECON | Unknown | | + + +---------+ + | Cindy Ewingillion | ECON | Unknown | | + + +---------+ + Care Team Providers + +------+ + | Care Mirror Silverer Name | Role | Phone | + +------+ + | Meet Small MD | PCP | | + +------+ + Reason for Visit + + + | Reason | Comments | + + + | Medication Refill | | + + + Encounter Details +--------+ + + + + | Date | Type | Department | Care Team | Description | +--------+ + + + + | 05/17/ | Telephone | [facility] | Lin Reyes DO | Medication Refill | | 2013 | | [facility] | [address] | | | | | [address] | [place] [address] | | | | | [address] | [phone] | | | | | [place], [place] | | | | | | [address] | | | | | | [phone] | | | +--------+ + + + + Social History + + + +--------+------+ | Tobacco Use | Types | Packs/Day | Years | Date | | | | | Used | | + + + +--------+------+ | Current Every Day | Cigarettes | 0.25 | 6 | | | Smoker | | | | | + + + +--------+------+ + +---+---+---+ | Smokeless Tobacco: | | | | | Never Used | | | | + +---+---+---+ + + +---------+ + | Alcohol Use | Drinks/Week | oz/Week | Comments | + + +---------+ + | No | | | Last ETOH 11/2012 | [...] + | Diagnosis | + + | Contraception management - Primary Unspecified contraceptive management | + + | Krissy vaginitis Candidiasis of vulva and vagina | + + documented in this encounter"
--- OUTSIDE RECORDS SUMMARY | ~2019-09-20 | XMS | Encounter Summary ---
Demographics + + + | Address | [address] | | | [place] [address] | + + + | Home Phone | | + + + | Preferred Language | Unknown | + + + | Marital Status | Single | + + + | Baptist Affiliation | 1013 | + + + | Race | Unknown | + + + | Ethnic Group | Unknown | + + + Author + + + | Author | [facility] | | | and Jeffana | + + + | Organization | [facility] | | | and [...] Team Providers + +------+ + | Care Cash Checker Name | Role | Phone | + +------+ + | Gordon Rievro MD | PCP | | + +------+ + Reason for Visit Auth/Cert +--------+--------+ + + + + | Status | Reason | Specialty | Diagnoses / | Referred By | Referred To | | | | | Procedures | Contact | Contact | +--------+--------+ + + + + | Closed | | Obstetrics | Diagnoses | | Wsp | | | | | Due | | | | | | | 10/22/13, | | [address] | | | | | [address] | | [place], | | | | | | | [place] [address] | | | | | | | Phone: | | | | | | | [phone] | | | | | | | Fax: | | | | | | | [phone] | +--------+--------+ + + + + Encounter Details +--------+ + + + + | Date | Type | Department | Care Team | Description | +--------+ + + + + | 10/13/ | Anesthesia | [address] | Jose Mcwilliams, | | | 2013 | Event | [facility] | [address] | | | | | AND DELIVERY IP | [place] | | | | | [address] | [id number] | | | | | [place] | | | | | | [address] | Perry Lopez, | | | | | [phone] | [address] | | | | | | [place] | | | | | | [address] | | | | | | | | +--------+ + + + + Anesthesia Record + + + + + | Procedure Name | Responsible | Anesthesia Start | Anesthesia Stop Time | | | Anesthesiologist | Time | | + + + + + | labor epidural | Jose Mcwilliams MD | 10/13/13 1504 | 10/13/13 1841 | + + + + + +----+---+ + + | Da | T | Event | Comment | | te | i | | | | | m | | | | | e | | | +----+---+ + + | 01 | 1 | An Start | Reassessment prior to anesthesia induction/procedure. | | /3 | 5 | | | | 1/ | 0 | | | | 20 | 4 | | | | 14 | | | | +----+---+ + + | | 1 | Epi/spinal | | | | 5 | Stop | | | | 1 | | | | | 1 | | | +----+---+ + + | | 1 | Epidural | | | | 5 | Bolus | | | | 1 | | | | | 4 | | | +----+---+ + + | | 1 | Epidural | | | | 5 | Infusion | | | | 1 | Started | | | | 7 | | | +----+---+ + + | | 1 | Out of OR | | | | 5 | Device Stop | | | | 2 | | | | | 1 | | | +----+---+ + + | | 1 | | | | | 5 | | | | | 3 | | | | | 1 | | | +----+---+ + + | | 1 | An Stop | Patient handed off to recovery nurse. | | | 4 | | | | | 1 | | | +----+---+ + + | | 1 | Baby Deliv | | | | 8 | | | | | 4 | | | | | 1 | | | +----+---+ + + +------+ | Meds | +------+ + +---------+ | Name | Total | + +---------+ | lidocaine 1.5%-EPINEPHrine | 3 mL | | 1:200,000 (PF) | | + +---------+ | lidocaine 1% (PF) | 5 mL | + +---------+ | fentaNYL 2 mcg/mL - bupivacaine | 40.8 mL | | 0.125% epidural(LD strength) | | + +---------+ | lactated ringers (LR) infusion | 0 mL | + +---------+ + + | No agents on file. | + + + + | No blood administrations on file. | + + +--------+ + + + | Type | Details | Placement | Removal | +--------+ + + + | [READ | 10/13/13; 1025; Hematology, Blood | 10/13/13 1025 by | 10/14/13 0947 by | | ONLY] | Bank; 10/14/13946 | Deanne Bardales, | Maura Hernandez RN | | | | RN | | | Periph | | | | | eral | | | | | IV - | | | | | Single | | | | | Lumen | | | | | | | | | +--------+ + + + | Epidur | 10/13/13; 1510; see block note; | 10/13/13 151 by | 10/13/131899 by | | al/Spi | 10/13/131899 | Perry Lopez MD | Maura Hernandez RN | | nal | | | | +--------+ + + + documented in this encounter Social History + + + +--------+------+ | [...] this encounter Last Filed Vital Signs + +---------+ + + | Vital Sign | Reading | Time Taken | Comments | + +---------+ + + | Blood Pressure | 121/59 | 10/13/2013 3:18 PM | | | | | PST | | + +---------+ + + | Pulse | - | - | | + +---------+ + + | Temperature | - | - | | + +---------+ + + | Respiratory Rate | - | - | | + +---------+ + + | Oxygen Saturation | - | - | | + +---------+ + + | Inhaled Oxygen | - | - | | | Concentration | | | | + +---------+ + + | Weight | - | - | | + +---------+ + + | Height | - | - | | + +---------+ + + | Body Mass Index | - | - | | + +---------+ + + documented in this encounter Plan of Treatment Not on filedocumented as of this encounter Procedures + +--------+ + + + | Procedure Name | Priori | Date/Time | Associated Diagnosis | Comments | | | ty | | | | + +--------+ + + + | ANESTHESIA BLOCK | Routin | 10/13/2013 | | Results for this | | | e | 3:26 PM | | procedure are in the | | | | PST | | results section. | + +--------+ + + + documented in this encounter Results ANESTHESIA BLOCK (10/13/2013 3:26 PM PST) + + + | Narrative | Performed At | + + + | Perry Lopez MD 10/13/2013 15:26 Procedure Note Epidural | | | Procedure: Epidural, L2-3, Approach: Midline . Technique: | | | Catheter Indication: Patient in labor. Block requested by surgeon | | | or patient. Pre-procedure Events: Patient identified, Pre-op | | | evaluation completed, Airway assessed, Risks and benefits discussed, | | | Procedure consent obtained and Timeout performed. Patient | | | Positioning: Prep: ChloraPrep used. Skin local anesthetic: | | | Lidocaine 1% Needle: 18 G Deion (3.5 in). Loss of resistance | | | depth: 6 cm. LARRY - Saline. Catheter depth at skin: 11 cm Ease: | | | Easy. Attempts: 1. Dressings: Sterile Dressing and Tape. | | | Note: Negative blood aspirated, CSF return, paresthesia and test | | | dose. In labor room, patient ID, pause, monitors applied, epidural | | | placed without difficulty.. Performed by: Performing | | | provider: Jessica. | | + + + + + | Procedure Note | + + | Perry Lopez MD - 10/13/2013 3:25 PM PST Procedure NoteEpiduralProcedure: | | Epidural, L2-3, Approach: Midline .Technique: Catheter Indication: Patient in labor. | | Block requested by surgeon or patient. Pre-procedure Events: Patient identified, | | Pre-op evaluation completed, Airway assessed, Risks and benefits discussed, Procedure | | consent obtained and Timeout performed.Patient Positioning: Prep: ChloraPrep used. Skin | | local anesthetic: Lidocaine 1%Needle: 18 G Deion (3.5 in). Loss of resistance | | depth: 6 cm. LARRY - Saline.Catheter depth at skin: 11 cmEase: Easy.Attempts: 1. | | Dressings: Sterile Dressing and Tape. Note: Negative blood aspirated, CSF return, | | paresthesia and test dose. In labor room, patient ID, pause, monitors applied, epidural | | placed without difficulty..Performed by: Performing provider: Jessica. | |Needle: 18 G Deion (3.5 in). | |Loss of resistance depth: 6 cm. LARRY - Saline. | |Catheter depth at skin: 11 cm | | | |Ease: Easy. | |Attempts: 1. | |Dressings: Sterile Dressing and Tape. | |Note: Negative blood aspirated, CSF return, paresthesia and test dose. In labor room, duke mcintyre ID, pause, monitors applied, epidural placed without difficulty.. | | | | | |Performed by: | |Performing provider: Jessica. | + + documented in this encounter Visit Diagnoses Not on filedocumented in this encounter Administered Medications + +---------+ + + +------+ | Medication Order | MAR | Action | Dose | Rate | Site | | | Action | Date | | | | + +---------+ + + +------+ | fentaNYL 2 mcg/mL-bupivacaine | New Bag | 10/13/19 | 12 mL/hr | 12 mL/hr | | | 0.125%-NaCl 0.9% epidural | | 14 3:17 | | | | | CONTINUOUS PRN, Starting Fri | | PM PST | | | | | 10/13/13 at 1517, Anesthesia | | | | | | | Intra-op | | | | | | + +---------+ + + +------+ +---+---+ | | | +---+---+ + +-------+ +-------+---+---+ | lidocaine (PF) 1% injection | Given | 10/13/19 | 5 mLs | | | | PRN, Starting 10/13/13 at | | 14 3:14 | | | | | 1514, Anesthesia Intra-op | | PM PST | | | | + +-------+ +-------+---+---+ +---+---+ | | | +---+---+ + +-------+ +-------+---+---+ | lidocaine 1.5%-EPINEPHrine | Given | 10/13/19 | 3 mLs | | | | 1:200,000 (PF) injection | | 14 3:11 | | | | | EPIDURAL, PRN, Starting Fri | | PM PST | | | | | 10/13/13 at 1511, Anesthesia | | | | | | | Intra-op | | | | | | + +-------+ +-------+---+---+ +---+---+ | | | +---+---+ documented in this encounter"
--- OUTSIDE RECORDS SUMMARY | ~2019-09-20 | XMS | Encounter Summary ---
Demographics + + + | Address | [address] | | | [place] [address] | + + + | Home Phone | | + + + | Preferred Language | Unknown | + + + | Marital Status | Single | + + + | Buddhism Affiliation | 1013 | + + + | Race | Unknown | + + + | Ethnic Group | Unknown | + + + Author + + + | Author | [facility] | | | and Jeffana | + + + | Organization | [facility] | | [...] Team Providers + +------+ + | Care Skiing Teacher Name | Role | Phone | + +------+ + | Meet Small MD | PCP | | + +------+ + Reason for Visit + + + | Reason | Comments | + + + | Appointment | with [facility] | + + + Encounter Details +--------+ + + + + | Date | Type | Department | Care Team | Description | +--------+ + + + + | 06/28/ | Telephone | [facility] | Margarita Harris | Appointment (with | | 2013 | | [facility] | [address] | RBKasia) | | | | [facility] [address] | | | | | | [address] | | | | | | [place] | | | | | | [address] | | | | | | [phone] | | | +--------+ + + + [...]
--- OUTSIDE RECORDS SUMMARY | ~2019-09-20 | XMS | Encounter Summary ---
Demographics + + + | Address | [address] | | | [place] [address] | + + + | Home Phone | | + + + | Preferred Language | Unknown | + + + | Marital Status | Single | + + + | Jainism Affiliation | 1013 | + + + [...] Team Providers + +------+ + | Care Programs Assistant Name | Role | Phone | + +------+ + | Gordon Rivero MD | PCP | | + +------+ + Reason for Visit + + + | Reason | Comments | + + + | Dental Problem | | + + + | Vaginitis | | + + + Encounter Details +--------+--------+ + + + | Date | Type | Department | Care Team | Description | +--------+--------+ + + + | 10/10/ | Refill | [facility] | Gordon Rivero MD | Dental Problem; | | 2013 | | [facility] | [address] | Vaginitis | | | | [address] | [place] [address] | | | | | [place] | [phone] | | | | | [place], [place] | | | | | | [address] | | | | | | [phone] | | | +--------+--------+ + + + Social History + + [...] + | Diagnosis | + + | BV (bacterial vaginosis) - Primary Vaginitis and vulvovaginitis, unspecified | + + | Dental infection Acute apical periodontitis of pulpal origin | + + documented in this encounter"
--- OUTSIDE RECORDS SUMMARY | ~2019-09-20 | XMS | Encounter Summary ---
Demographics + + + | Address | [address] | | | [place] [address] | + + + | Home Phone | | + + + | Preferred Language | Unknown | + + + | Marital Status | Single | + + + | Adventism Affiliation | 1013 | + + + [...] | | + + +---------+ + | Cindycecil Butcher | ECON | Unknown | | + + +---------+ + Care Team Providers + +------+ + | Care Military Administrative Technician Name | Role | Phone | + +------+ + | Gordon Rivero MD | PCP | | + +------+ + Encounter Details +--------+ + + + + | Date | Type | Department | Care Team | Description | +--------+ + + + + | 10/10/ | Hospital | [facility] | Koffi Sniha | Supervision of other | | 2013 | Encounter | [facility] | [address] | normal ; | | | | CLINICAL LAB SERVS | [address] | Polysubstance abuse | | | | [address] | [place] [address] | | | | | [place], [place] | [phone] | | | | | [address] | | | | | | [phone] | | | +--------+ + + + [...] + + + +---------+ + + | ranitidine | Take 1 tablet by | 60 | 3 | 08/29/20 | | | (ZANTAC) 150 mg | mouth 2 times daily. | tablet | | 13 | 4 | | tabletIndications: | | | | | | | Heartburn in | | | | | | [...] | + +--------+ + + + | DRUGS OF ABUSE, | Routin | 10/10/2013 | Supervision of | Results for this | | SCREEN, URINE | e | 8:46 AM | other normal | procedure are in the | | | | PST | | results section. | | | | | Polysubstance abuse | | + +--------+ + + + documented in this encounter Results Drugs of Abuse, Screen, Urine (10/10/2013 8:46 AM PST) + + + + + + | Component | Value | Ref Range | Performed | Pathologist | | | | | At | Signature | + + + + + + | THC 20 | Negative | 0 - 20 ng/mL | [facility] | | | URINE | | | [facility] | | | | | | CORE | | | | | | LABORATORY | | + + + + + + | Tox Comment | See NoteComment: Drug | | [facility] | | | | screen results are for | | [facility] | | | | medical use only. [...] | | | | | | [facility] | | | | | | CORE [...] | | Screen, | | | [facility] | | | Urine | | | CORE | | | | | | LABORATORY | | + + + + + + | Benzodiazep | Negative | 0 - 200 ng/mL | [facility] | | | sanya | | | [facility] | | | Screen, | | | [...] + + + + | Creatinine, | 37.10 | >=20.00 mg/dL | [facility] | | | Urine | | | [facility] | | | | | | CORE | | | | | | LABORATORY | | + + + + + + | pH, Urine | 6.5 | 5.0 - 8.0 | [facility] | [...] | + + + + + | [address] | [address] | [place] [address] | [phone] | | [facility] | | | | | LABORATORY | | | | + + + + + documented in this encounter Visit Diagnoses + + | Diagnosis | + + | Supervision of other normal | + + | Polysubstance abuse (HCC) Other, mixed, or unspecified nondependent drug abuse, | | unspecified | + + documented in this encounter"
--- OUTSIDE RECORDS SUMMARY | ~2019-09-20 | XMS | Encounter Summary ---
Demographics + + + | Address | [address] | | | [place] [address] | + + + | Home Phone | | + + + | Preferred Language | Unknown | + + + | Marital Status | Single | + + + | Holiness Affiliation | 1013 | + + + | Race | Unknown | + + + | Ethnic Group | Unknown | + + + Author + + + | Author | [facility] | | | and Jeffana | + + + | Organization | [facility] | | | [...] Team Providers + +------+ + | Care Director Information Security Name | Role | Phone | + +------+ + | Gordon Rivero MD | PCP | | + +------+ + Reason for Visit + + + | Reason | Comments | + + + | Medication | OB pt; wants ok to take amoxicillin | | Management | | + + + Encounter Details +--------+ + + + + | Date | Type | Department | Care Team | Description | +--------+ + + + + | 08/18/ | Telephone | [facility] | Derrek, | Medication | | 2012 | | [facility] | [address] | Management (OB pt; | | | | [facility] [address] | | wants ok to take | | | | [address] | | amoxicillin) | | | | [place] | | | | | | [address] | | | | | | [phone] | | | +--------+ + + + + Social History + + + +--------+------+ | Tobacco Use | Types | Packs/Day | Years | Date | | | | | Used | | + + + +--------+------+ | Current Every Day | Cigarettes | 0.2 | 3 | | | Smoker | [...]
--- OUTSIDE RECORDS SUMMARY | ~2019-09-20 | XMS | Encounter Summary ---
Demographics + + + | Address | [address] | | | [place] [address] | + + + | Home Phone | | + + + | Preferred Language | Unknown | + + + | Marital Status | Single | + + + | Worship Affiliation | 1013 | + + + | Race | Unknown | + + + | Ethnic Group | Unknown | + + + Author + + + | Author | [facility] | | | and Jeffana | + + + | Organization | [facility] | | [...] Team Providers + +------+ + | Care Vice President Global Advertising Sales Name | Role | Phone | + +------+ + | Gordon Rivero MD | PCP | | + +------+ + Reason for Visit + + + | Reason | Comments | + + + | Routine | 36+3 | | Visit | | + + + Encounter Details +--------+ + + + + | Date | Type | Department | Care Team | Description | +--------+ + + + + | 09/27/ | Routine | [facility] | Gordon Rivero MD | GA: 36w3d | | 2014 | | [facility] | [address] | | | | | [facility] [address] | [place] [address] | | | | | [place] | [phone] | | | | | [place] | | | | | | [address] | | | | | | [phone] | | | +--------+ + + + [...] + + + | Blood Pressure | 102/68 | 09/27/2013 8:40 AM | | | | | PST [...] + + + + | Weight | 91.7 kg (202 lb 3.2 | 09/27/2013 8:40 AM | | | | oz) | PST | | + + + + + | Height | - | - | | + + + + + | Body Mass Index | 32.64 | 09/14/2013 8:46 PM | | | | | PST | | + + + + + documented in this encounter Patient Instructions Patient Instructions Kalli Anglin[facility] 8:44 AM [facility] Thank you for your recent visit. You may receive a survey in the mail, by returning the gonzales vey your input will help us improve. Thank you GERD (Adult) The esophagus is a tube that carries food from the mouth to the stomach. A valve at the low er end of the esophagus prevents stomach acid from flowing upward. If this valve does not wo rk properly, acid from the stomach enters the esophagus. If this occurs over and over, the a elva will injure the lining of the esophagus. This condition is called GERD (gastroesophageal reflux disease) or acid reflux. When stomac h acid flows upward into the esophagus, it causes burning, pressure or sharp pain in the upp er abdomen or mid to lower chest. The pain can spread to the neck, back, or shoulder, simila r to heart pain (angina). There may be belching, an acid taste in the back of the throat, ch ronic cough, or sore throat or hoarseness. GERD symptoms often occur during the day after a big meal, but it can also occur at night when lying down. Smoking,as well as drinking alco hol, increases the risk of GERD. GERD is a chronic condition. Once it begins, it is often lifelong. Treatment includes mosher es in eating habits and the use of acid tone medications to decrease the amount of acid i n the stomach. Symptoms often improve with treatment, but if treatment is stopped, the symptoms usually re turn after a few months. So most persons with GERD will need to continue treatment. Home Care: Take the prescribed acid tone medication for the full course of treatment even if you begin to feel better sooner. This medication can take up to several days to fully control y our symptoms. If you can t afford the prescribed medication, you can try rpnx-ihz-fsyxuzp acid blockers, such as Pepcid AC, Tagamet, Zantac, or Aciphex. If these do not relieve your symptoms, a stronger acid-tone can be tried, such as Prilosec OTC. You can use antacids, such as Tums, Rolaids, Mylanta, or Maalox, for pain. This will be useful the first few days after starting acid blockers when the blockers haven t started w orking yet. Follow the directions on the label. Liquid antacids may work better than tablets . Note that antacids can interfere with absorption of certain medications. Specifically, do not take Tagamet (cimetidine), Zantac (ranitidine), or Carafate (sucralfate) within 1 hour o f taking an antacid. Talk with your pharmacist if you have any questions. Limit or avoid fatty, fried, and spicy foods, as well as coffee, chocolate, mint, and fo ods with high acid content such as tomatoes and citrus fruit and juices (orange, grapefruit, lemon). Avoid alcohol and smoking. Don t eat large meals, especially at night. Frequent, smaller meals are best. Do not l ie down right after eating. And don t eat anything 3 hours before going to bed. If you are overweight, losing weight will reduce symptoms. Women should not wear corsets or girdles because this increases pressure on the stomach and worsens reflux. If your symptoms occur during sleep, use a foam wedge to elevate your upper body (not ju st your head.) Or, place 4" blocks under the head of your bed. Follow Up with your doctor or as advised by our staff. Further testing may be needed. If you do not b egin to improve over the next 4 days, contact your doctor. If you had an x-ray, CT scan, or ECG (electrocardiogram), it will be reviewed by a specialist. You ll be notified of any ne w findings that affect your care. Get Prompt Medical Attention if any of the following occur: Stomach pain gets worse or moves to the lower right abdomen (appendix area) Chest pain appears or gets worse, or spreads to the back, neck, shoulder, or arm Frequent vomiting (can t keep down liquids) Blood in the stool or vomit (red or black in color) Feeling weak or dizzy, fainting, or trouble breathing Fever of 100.4F (38C) or higher, or as directed by your healthcare provider [id number] [facility], [address] [place] [address]. All rights reserve d. This information is not intended as a substitute for professional medical care. Always fo llow your healthcare professional's instructions. documented in this encounter Progress Notes Tiffany Gtz MD - 09/27/2013 9:10 AM PST Janie Yoo is a 28 y. o. A POS female being seen today for her obstetrical visit by Gordon Rivero MD . Sh e is at 36w3d weeks gestation. Patient reports heartburn. movement: normal. Patient's last menstrual period was 01/21/2013.. See note below. Depression OK. Living sit uation unstable. SAMMY is 10/22/2013, by Ultrasound Assessment: IUP with possible brain issues, H/O PSA, GERD Plan: GBS, Utox and STI eval today.Discuss BCM, has had vaccines, plans BFing. Gordon Amador MD - 09/27/2013 9:02 AM PST28 y.o. A POS @ 36w3d by 27wk , here for routine OB visit. Good movement, no vaginal d/c or bleeding, no dysuria, no constipation. Fundal height, FHT, vital signs are appropriate. Recent labs reviewed and reassuring including MFM referral. 1. Routine care, GBS screen done today with kalli as solar installation supervisor. 2. Weight gain 40#, advised watch calories 3. MFM for cerebral ventriculomegally pending, no hydrocephalus noted yet so delivery at not indicated yet. Has echocardiogram and brain MRI later this week. 4. Heartburn: handout given and has Rx ranitidine available. 5. H/o substance abuse, repeat UDS (all negative so far). And repeat STI screens. F/u 1 weeks for BG. [facility] umented in this encounter Plan of Treatment + + +--------+ + + | Name | Type | Priori | Associated Diagnoses | Order Schedule | | | | ty | | | + + +--------+ + + | C. trachomatis and | Microbiolog | Routin | Supervision of | Ordered: 09/27/2013 | | N. gonorrhoeae, NAAT | y | e | other normal | | | (APTIMA) | | | | | | | | | Polysubstance abuse | | + + +--------+ + + | Toxicology Screen | Lab | Routin | Supervision of | Expected: | | | | e | other normal | 09/27/2013, Expires: | | | | | | 09/27/2014 | | | | | Polysubstance abuse | | + + +--------+ + + documented as of this encounter Results Rapid Plasma Reagin, Qual (09/27/2013 9:31 AM PST) + + + + + + | Component | Value | Ref Range | Performed | Pathologist | | | | | At | Signature | + + + + + + | Treponema | Non-Reactive | Non-Reactive | [facility] | | | Pallidum Ab | | | [facility] | | | RPR, Qual | | | CORE | | | | | | LABORATORY | | + + + + + + + + | Specimen | + + | Blood specimen | | (specimen) | + + + + + + + | Performing | Address | City/State/Zipcode | Phone Number | | Organization | | | | + + + + + | [facility] | [address] | [place] [address] | [phone] | | [facility] | | | | | LABORATORY | | | | + + + + + Culture,Strep Group B (09/27/2013 9:31 AM PST) + + + + + + | Component | Value | Ref Range | Performed | Pathologist | | | | | At | Signature | + + + + + + | Final | No Group B Streptococcus | | [facility] | | | Result | Isolated | | [facility] | | | | | | CORE | | | | | | LABORATORY | | + + + + + + + + | Specimen | + + | Specimen from | | genital system | | (specimen) - | | Vagina/Rectum | + + + + + + + | Performing | Address | City/State/Zipcode | Phone Number | | Organization | | | | + + + + + | [facility] | [address] | [place] [address] | [phone] | | [facility] | | | | | LABORATORY | | | | + + + + + HIV 1 and 2 Sebastian Vivar (09/27/2013 9:31 AM PST) + + + + + + | Component | Value | Ref Range | Performed | Pathologist | | | | | At | Signature | + + + + + + | HIV 1 and 2 | Non Reactive | Non Reactive | [facility] | | | | | | [facility] | | | | | | [facility]ORE | | | | | | LABORATORY | | + + + + + + | Interpretat | The non reactive HIV1 or | | [facility] | | | ion, HIV | 2 antibody result | | [facility] | | | | indicates that | | CORE | | | | antibodies to HIV 1 and | | LABORATORY | | | | HIV 2 have not been | | | | | | detected in this | | | | | | specimen. This does not | | | | | | preclude previous | | | | | | exposure or infection. | | | | + + + + + + + + | Specimen | + + | Blood specimen | | (specimen) | + + + + + + + | Performing | Address | City/State/Zipcode | Phone Number | | Organization | | | | + + + + + | [facility] | [address] [place] [address] | [place] [address] | [phone] | | [facility] | | | | | LABORATORY | | | | + + + + + documented in this encounter Visit Diagnoses + + | Diagnosis | + + | Supervision of other normal - Primary | + + | Polysubstance abuse (HCC) Other, mixed, or unspecified nondependent drug abuse, | | unspecified | + + | Heartburn in Other specified complication of , unspecified as to | | episode of care | + + documented in this encounter
--- OUTSIDE RECORDS SUMMARY | ~2019-09-20 | XMS | Encounter Summary ---
Demographics + + + | Address | [address] | | | [place] [address] | + + + | Home Phone | | + + + | Preferred Language | Unknown | + + + | Marital Status | Single | + + + | Spiritism Affiliation | 1013 | + + + | Race | Unknown | + + + | Ethnic Group | Unknown | + + + Author + + + | Author | [facility] | | | and Jeffana | + + + | Organization | [facility] | | | [...] Team Providers + +------+ + | Care Ward Helper Name | Role | Phone | + +------+ + | Gordon Rivero MD | PCP | | + +------+ + Encounter Details +--------+ + + + + | Date | Type | Department | Care Team | Description | +--------+ + + + + | 09/27/ | Hospital | [facility] | Koffi Sinha | Supervision of other | | 2013 | Encounter | [facility] | [address] | normal ; | | | | CLINICAL LAB SERVS | [address] | Polysubstance abuse | | | | [address] | [place] [address] | | | | | [place], [place] | [phone] | | | | | [address] | | | | | | [phone] | | | +--------+ + + + [...] capsules by | 60 | 2 | /16/ | | | (COLACE) 100 mg | [...] + + + +---------+ + + | amoxicillin | Take 500 mg by mouth | | 0 | | | | (AMOXIL) 500 MG | 2 times daily. | | | | 4 | | capsule | | | | | | + [...] + +--------+ + + + | CULTURE, STREP GROUP | Routin | 09/27/2013 | Supervision of | Results for this | | B | e | 9:31 AM | other normal | procedure are in the | | | | PST | | results section. | | | | | Polysubstance abuse | | + +--------+ + + + | DRUGS OF ABUSE, | Routin | 09/27/2013 | | Results for this | | SCREEN, URINE | e | 9:31 AM | | procedure are in the | | | | PST | | results section. | + +--------+ + + + | RAPID PLASMA REAGIN, | Routin | 09/27/2013 | Supervision of | Results for this | | QUAL | e | 9:31 AM | other normal | procedure are in the | | | | PST | | results section. | | | | | Polysubstance abuse | | + +--------+ + + + | HIV 1 AND 2 AB, | Routin | 09/27/2013 | Supervision of | Results for this | | REFLEX | e | 9:31 AM | other normal | procedure are in the | | | | PST | | results section. | | | | | Polysubstance abuse | | + +--------+ + + + | C. TRACHOMATIS AND | Routin | 09/27/2013 | | Results for this | | N. GONORRHOEAE, NAAT | e | 9:31 AM | | procedure are in the | | (APTIMA) | | PST | | results section. | + +--------+ + + + documented in this encounter Results Drugs of Abuse, Screen, Urine (09/27/2013 9:31 AM PST) + + + [...] | | URINE | | | [facility] | | [...] + + + + | Opiate | Positive | 0 - 300 ng/mL | [facility] | | | Screen, | | | [facility] | | | Urine | | | [...] + + + + | Creatinine, | 146.00 | >=20.00 mg/dL | [facility] | | | Urine | | | [facility] | | | | | | CORE | | | | | | LABORATORY | | + + + + + + | pH, Urine | 5.5 | 5.0 - 8.0 | [facility] | [...] + + | [facility] | [address] | [place] [address] | [phone] | | [facility] | | | | | LABORATORY | | | | + + + + + C. trachomatis and N. gonorrhoeae, NAAT (APTIMA) (09/27/2013 9:31 AM PST) + + + + + ---+ | Component | Value | Ref Range | Performed | Pathologis t | | | | | At | Signature | + + + + + ---+ | Neisseria | Not DetectedComment: | NOTDET | [facility] | | | gonorrhoeae | Test Performed by [facility], | | [facility] | | | rRNA PCR | [address], | | CORE | | | | [place] [id number] is | | LABORATORY | | | | Performed at [facility], | | | | | | [place] | | | | + + + + + ---+ | Chlamydia | Not DetectedComment: | NOTDET | [facility] | | | trachomatis | Test is Performed at | | [facility] | | | rRNA PCR | [place] | | CORE | | | |Test is Performed at [facility] [place] | | LABORATORY | | + + + + + ---+ + + | Specimen | + + | Urine specimen | | (specimen) | + + + + + | Narrative | Performed At | + + + | urine | [facility] | | | [facility] | | | LABORATORY | + + + + + + + + | Performing | Address | City/State/Zipcode | Phone Number | | Organization | | | | + + + + + | [facility] | [address] | [place] [address] | [phone] | | [facility] | | | | | LABORATORY | | | | + + + + + Rapid Plasma Reagin, Qual (09/27/2013 9:31 AM PST) + + + + + + | Component | Value | Ref Range | Performed | Pathologist | | | | | At | Signature | + + + + + + | Treponema | Non-Reactive | Non-Reactive | [facility] | | | Pallidum Ab | | | [facility] | | | RPR, Qual | | [...] + + + | [facility] | [address] [place] [address] [address] | [place] [address] | [phone] | | [facility] | | | | | LABORATORY [...] | No Group B Streptococcus | | [facility] | | | Result | Isolated | | [facility] | | | [...] | + + + + + | [facility] | [address] | [place] [address] | [phone] | | [facility] | | | | | LABORATORY | | | | + + + + + HIV 1 and 2 Ab, Reflex (09/27/2013 9:31 AM PST) + + + [...] | + + + + + | [facility] | [address] | [place] [address] | [phone] | | [facility] | | | [...]
--- OUTSIDE RECORDS SUMMARY | ~2019-09-20 | XMS | Encounter Summary ---
Demographics + + + | Address | [address] | | | [place] [address] | + + + | Home Phone | | + + + | Preferred Language | Unknown | + + + | Marital Status | Single | + + + | Spiritism Affiliation | 1013 | + + + | Race | Unknown | + + + | Ethnic Group | Unknown | + + + Author + + + | Author | [facility] | | | and Jeffana | + + + | Organization | [facility] | | [...] Team Providers + +------+ + | Care Posting Machine Operator Name | Role | Phone | + +------+ + | Wesley Dinero | PCP | | | WIRER PASSENGER CAR | | | + +------+ + Encounter Details +--------+ + + + + | Date | Type | Department | Care Team | Description | +--------+ + + + + | 05/26/ | Abstract | [facility] | DATA MIGRATION JONATHAN | | | 2011 | | Conversion Location | SR | | | | | [phone] | | | +--------+ + + + [...] + + + | Blood Pressure | 126/78 | 10/29/2010 12:00 AM | | | | | PST [...] + + + + | Weight | 69.9 kg (154 lb) | 10/29/2010 12:00 AM | | | | | PST | | + + + + + | Height | 168.9 cm (5' 6.5") | 10/29/2010 12:00 AM | | | | | PST | | + + + + + | Body Mass Index | 24.48 | 10/29/2010 12:00 AM | | | | | PST | | + + + + + documented in this encounter Plan of Treatment Not on filedocumented as of this encounter Visit Diagnoses Not on filedocumented in this encounter
--- OUTSIDE RECORDS SUMMARY | ~2019-09-20 | XMS | Encounter Summary ---
Demographics + + + | Address | [address] | | | [place] [address] | + + + | Home Phone | | + + + | Preferred Language | Unknown | + + + | Marital Status | Single | + + + | Yazdanism Affiliation | 1013 | + + + | Race | Unknown | + + + | Ethnic Group | Unknown | + + + Author + + + | Author | [facility] | | | and Jeffana | + + + | Organization | [facility] | | [...] Team Providers + +------+ + | Care Research Methods Instructor Name | Role | Phone | + [...] Description | +--------+--------+ + + + | 07/20/ | Refill | [facility] | [place], | Medication Refill | | 2013 | | [facility] | [place] | | | | | [facility] [address] | | | | | | [address] | | | | | | [place] | | | | | | [address] | | | | | | [phone] | | | +--------+--------+ + + + [...] | Diagnosis | + + | Depression - Primary Depressive disorder, not elsewhere classified | + + | Anxiety Anxiety state, unspecified | + + documented in this encounter"
--- OUTSIDE RECORDS SUMMARY | ~2019-09-20 | XMS | Encounter Summary ---
Demographics + + + | Address | [address] | | | [place] [address] | + + + | Home Phone | | + + + | Preferred Language | Unknown | + + + | Marital Status | Single | + + + | Yazdanism Affiliation | 1013 | + + + | Race | Unknown | + + + | Ethnic Group | Unknown | + + + Author + + + | Author | [facility] | | | and Jeffana | + + + | Organization | [facility] | | | and [...] Team Providers + +------+ + | Care Engine Lathe Tender Name | Role | Phone | + +------+ + | Gordon Rivero MD | PCP | | + +------+ + Encounter Details +--------+ + + + + | Date | Type | Department | Care Team | Description | +--------+ + + + + | 09/27/ | Hospital | [facility] | Koffi Sinha | Supervision of other | | 2013 | Encounter | [facility] | [address] | normal ; | | | | CLINICAL LAB SERVS | [address] | Polysubstance abuse | | | | [address] | [place] [address] | | | | | [place], [place] | [phone] | | | | | [address] | | | | | | [phone] | | | +--------+ + + + [...] + + | [facility] | [address] | [place] [address] | [phone] | | [facility] | | | [...] Test Performed by [facility], | | [facility] | | | rRNA PCR | [address], | | CORE | | | | [place] [id number] is | | LABORATORY | | | | Performed at [facility], | | | | | | [place] | | | | + + + + + ---+ | Chlamydia | Not DetectedComment: | NOTDET | [facility] | | | trachomatis | Test is Performed at | | [facility] | | | rRNA PCR | [place] | | CORE | | | |Test is Performed at [facility] [place] | | LABORATORY | | + [...] + + | [facility] | [address] | [place] [address] | [phone] | | [facility] | | | [...] + + + | [facility] | [address] [place] [address] Road [address] | [place] [address] | [phone] | | [facility] | | | [...] + + | [facility] | [address] | [place] [address] | [phone] | | [facility] | | | [...] | + + + + + | [facility] | [address] | [place] [address] | [phone] | | [facility] | | | [...]
--- OUTSIDE RECORDS SUMMARY | ~2019-09-20 | XMS | Encounter Summary ---
Demographics + + + | Address | [address] | | | [place] [address] | + + + | Home Phone | | + + + | Preferred Language | Unknown | + + + | Marital Status | Single | + + + | Sikhism Affiliation | 1013 | + + + | Race | Unknown | + + + | Ethnic Group | Unknown | + + + Author + + + | Author | [facility] | | | and Jeffana | + + + | Organization | [facility] | | | and [...] Team Providers + +------+ + | Care Supervisor Quilting Name | Role | Phone | + +------+ + | Gordon Rivero MD | PCP | | + +------+ + Encounter Details +--------+ + + + + | Date | Type | Department | Care Team | Description | +--------+ + + + + | 02/22/ | Hospital | [facility] | Abundio Taveras MD [address] | Flank pain; | | 2013 | Encounter | [facility] | [address] | Menorrhagia | | | | CLINICAL LAB SERVS | [place] [address] | | | | | [address] | [phone] | | | | | [place], [place] | | | | | | [address] | | | | | | [phone] | | | +--------+ + + + [...] | | | Urine, POC | Rd [facility] [address] | | CORE | | | |Performed by [facility] [address] [facility] [address] | | LABORA TORY | | + + + +------- ------+ + + + | Specimen | + + | Urine specimen | | (specimen) - Urine, | | Unspecified Source | + + + + + + + | Performing | Address | City/State/Zipcode | Phone Number | | Organization | | | | + + + + + | [facility] | [address] [place] [address] NE | [place] [address] | [phone] | | [facility] | | | [...] 1.030 | [facility] | | | [place] | | | [address] [facility] | [...] [facility]ER | | | | [place] [address] | | C ORE | | | |Performed by [facility] [address] [place] [address] | | L ABORATORY | | + + + +-- + + + + | Specimen | + + | Urine specimen | | (specimen) | + + + + + + + | Performing | Address | City/State/Zipcode | Phone Number | | Organization | | | | + + + + + | [facility] | [address] | [place] [address] | [phone] | | [facility] | | | [...] | CORE | | | | [place] [address] | | LABORATORY | | + + [...] [address] [place] | | | [place] [address] | +---+ + + + + + + | Performing | Address | City/State/Zipcode | Phone Number | | Organization | | | | + + + + + | [facility] | [address] | [place], [place] [address] | [phone] | | [facility] | | | | | LABORATORY | | | | + + + + + documented in this encounter Visit Diagnoses + + | Diagnosis | + + | Flank pain Abdominal pain, unspecified site | + + | Menorrhagia Excessive or frequent menstruation | + + documented in this encounter"
--- OUTSIDE RECORDS SUMMARY | ~2019-09-20 | XMS | Encounter Summary ---
Demographics + + + | Address | [address] | | | [place] [address] | + + + | Home Phone | | + + + | Preferred Language | Unknown | + + + | Marital Status | Single | + + + | Rastafari Affiliation | 1013 | + + + | Race | Unknown | + + + | Ethnic Group | Unknown | + + + Author + + + | Author | [facility] | | | and Jeffana | + + + | Organization | [facility] | | | [...] Team Providers + +------+ + | Care Souvenir And Novelty Maker Name | Role | Phone | + +------+ + | Gordon Rivero MD | PCP | | + +------+ + Reason for Visit +--------+ + | Reason | Comments | +--------+ + | Other | Medication Refill Request from Patient | +--------+ + Encounter Details +--------+ + + + + | Date | Type | Department | Care Team | Description | +--------+ + + + + | 01/26/ | Telephone | [facility] | Gordon Rivero MD | Other (Medication | | 2013 | | [facility] | [address] | Refill Request from | | | | [facility] [address] | [place] [address] | Patient) | | | | [address] [place] | [phone] | | | | | [place] | | | | | | [address] | | | | | | [phone] | | | +--------+ + + + [...]
--- OUTSIDE RECORDS SUMMARY | ~2019-09-20 | XMS | Encounter Summary ---
Demographics + + + | Address | [address] | | | [place] [address] | + + + | Home Phone | | + + + | Preferred Language | Unknown | + + + | Marital Status | Single | + + + | Sikh Affiliation | 1013 | + + + | Race | Unknown | + + + | Ethnic Group | Unknown | + + + Author + + + | Author | [facility] | | | and [place] | + + + | Organization | [facility] | | | [...] Team Providers + +------+ + | Care Project Account Manager Name | Role | Phone | + +------+ + | Gordon Rivero MD | PCP | | + +------+ + Encounter Details +--------+ + + + + | Date | Type | Department | Care Team | Description | +--------+ + + + + | 08/29/ | Hospital | [facility] | Abundio Taveras MD [address] | Supervision of other | | 2012 | Encounter | [facility] | [address] | normal ; | | | | CLINICAL LAB SERVS | [place] [address] | Polysubstance abuse | | | | [address] | [phone] | | | | | [place], [place] | | | | | | [address] | | | | | | [phone] | | | +--------+ + + + [...] | DRUGS OF ABUSE, | Routin | 08/29/2013 | | Results for this | | SCREEN, URINE | e | 4:26 PM | | procedure are in the | | | | PST | | results section. | + +--------+ + + + documented in this encounter Results Drugs of Abuse, Screen, Urine (08/29/2013 4:26 PM PST) + + + + + [...] + + + + | Creatinine, | 26.00 | >=20.00 mg/dL | [facility] | | | Urine | | | [facility] | | | | | | CORE | | | | | | LABORATORY | | + + + + + + | pH, Urine | 6.4 | 5.0 - 8.0 | [facility] | | | | | [...] | + + + + + | [facility] | [address] | [place] [address] | [phone] | | [facility] | | | [...]
--- OUTSIDE RECORDS SUMMARY | ~2019-09-20 | XMS | Encounter Summary ---
Demographics + + + | Address | [address] | | | [place] [address] | + + + | Home Phone | | + + + | Preferred Language | Unknown | + + + | Marital Status | Single | + + + | Episcopal Affiliation | 1013 | + + + | Race | Unknown | + + + | Ethnic Group | Unknown | + + + Author + + + | Author | [facility] | | | and [place] | + + + | Organization | [facility] | | | [...] Team Providers + +------+ + | Care Curtain Stitcher Name | Role | Phone | [...] Description | +--------+--------+ + + + | 07/24/ | Refill | [facility] | Meet Small | Medication Refill | | 2013 | | [facility] | [address] | | | | | [facility]ILY [facility]INE [address] | [place], | | | | | [place] | [place] [address] | | | | | [place] | [phone] | | | | | [address] | | | | | | [phone] | | | +--------+--------+ + + + [...] Primary Unspecified contraceptive management | + + documented in this encounter"
--- OUTSIDE RECORDS SUMMARY | ~2019-09-20 | XMS | Encounter Summary ---
Demographics + + + | Address | [address] | | | [place] [address] | + + + | Home Phone | | + + + | Preferred Language | Unknown | + + + | Marital Status | Single | + + + | Jainism Affiliation | 1013 | + + + | Race | Unknown | + + + | Ethnic Group | Unknown | + + + Author + + + | Author | [facility] | | | and [place] | + + + | Organization | [facility] | | [...] Team Providers + +------+ + | Care Beater Worker Helper Name | Role | Phone | + +------+ + | Meet Small MD | PCP | | + +------+ + Encounter Details +--------+ + + + + | Date | Type | Department | Care Team | Description | +--------+ + + + + | 05/16/ | Hospital | [facility] | Tiffany Gtz, | Family planning; | | 2013 | Encounter | [facility] | MD [address] | Dysuria | | | | CLINICAL LAB SERVS | [place], [place] | | | | | [address] | [address] | | | | | [place], [place] | | | | | | [address] | | | | | | [phone] | | | +--------+ + + + [...] + +---------+ + + | | Take one tablet | 91 each | 4 | 05/16/20 | | | levonorgestrel-ethin | daily. | | | 14 | 4 | | yl estradiol | | | | | | | (SEASONIQUE) | | | | | | | 0.15-0.03 &0.01 MG | | | | | | | TABSIndications: | | | | | | | Contraception | | | | | | | management | | | | | | + + + +---------+ + + | sertraline | Take 1 tablet by | 30 | 1 | 05/16/20 | | | (ZOLOFT) 25 mg | mouth Daily. | tablet | | 14 | 4 | | tabletIndications: | | | | | | | Depression, Anxiety | | | | | | + [...] + | URINALYSIS WITH | Routin | 05/16/2014 | Dysuria | Results for this | | MICROSCOPIC WITH | e | 10:00 AM | | procedure are in the | | CULTURE IF INDICATED | | PDT | | results section. | + +--------+ + + + | HCG, URINE, QUAL | Routin | 05/16/2014 | Family planning | Results for this | | | e | 10:00 AM | | procedure are in the | | | | PDT | | results section. | + +--------+ + + + documented in this encounter Results Urinalysis with Microscopic with Culture if Indicated (05/16/2014 10:00 AM PDT) + + + +-- + + | Component | Value | Ref Range | P erformed | Pathologist | | | | | A t | Signature | + + + +-- + + | CULTURE | No | | [facility] | | | SENT | | | [facility] | | | | | | C ORE | | | | | | L ABORATORY | | + + + +-- + + | Color, | Yellow. | | [facility] | | | Urine | | | [facility] | | | | | | C ORE | | | | | | L ABORATORY | | + + + +-- + + | Clarity | Clear | | [facility] | | | [...] + +-- + + | Specific | 1.015 | 1.005 - 1.030 | [facility] | | | [facility] | | | [facility] | | | | | | C ORE | | | | | | L ABORATORY | | + + + +-- + + | pH, Urine | 6.0 | 5.0 - 9.0 | [facility] [...] + +-- + + | Blood, | Trace (A) | Negative | [facility] | | | Urine | | | [facility] | | | | | | C ORE | | | | | | L ABORATORY | | + + + +-- + + | Leukocyte | Negative | Negative | [facility] | | | Esterase, | | | [facility] | | | Urine | | | C ORE | | | | | | L ABORATORY | | + + + +-- + + | SQUAMOUS | 1 | 0 - 2 /hpf | [facility] | | | EPITHELIAL | | | [facility] | | | UA | | | C ORE | | | | | | L ABORATORY | | + + + +-- + + | WBC UA | 4 | 0 - 5 /hpf | [facility] | | | | | | [facility] | | | | | | C ORE | | | | | | L ABORATORY | | + + + +-- + + | RBC UA | <1 | 0 - 5 /hpf | [facility] | | | | | | [facility] | | | | | | C ORE | | | | | | L ABORATORY | | + + + +-- + + | BACTERIA UA | 1+ | None | [facility] | | [...] +-- + + | MUCUS UA | None | None | [facility] | | | | | | [facility] | | | | | | C ORE | | | | | | L ABORATORY | | + + + +-- + + | URINE | voidComment: Performed | | [facility] | | | SOURCE | by [facility] [address] | | [address] [facility] | | | | [address] [facility] [address] | | C ORE | | | |Performed by [facility] [address] [facility] [address] | | L ABORATORY | | + + + +-- + + + + | Specimen | + + | Urine specimen | | (specimen) | + + + + + + + | Performing | Address | City/State/Zipcode | Phone Number | | Organization | | | | + + + + + | [facility] | [address] | [place] [address] | [phone] | | [facility] | | | | | LABORATORY | | | | + + + + + HCG, Urine, Qual (05/16/2014 10:00 AM PDT) + + + + + + | Component | Value | Ref Range | Performed | Pathologist | | | | | At | Signature | + + + + + + | | Neg | | [facility] | | | Test, | | | [facility] | | | Urine, POC | | | CORE | | | | | | LABORATORY | | + + + + + + | Specific | 1.015Comment: Performed | 1.005 - 1.030 | [facility] | | | [place] | by [facility] [address] | | [facility] | | | | [address] [place] | | CORE | | | | [address] | | LABORATORY | | + + + + + + + + | Specimen | + + | Urine specimen | | (specimen) | + + + + + + + | Performing | Address | City/State/Zipcode | Phone Number | | Organization | | | | + + + + + | [facility] | [address] [place] [address] | [place] [address] | [phone] | | [facility] | | | | | LABORATORY | | | | + + + + + documented in this encounter Visit Diagnoses + + | Diagnosis | + + | Family planning Other general counseling and advice for contraceptive management | + + | Dysuria | + + documented in this encounter"
--- OUTSIDE RECORDS SUMMARY | ~2019-09-20 | XMS | Encounter Summary ---
Demographics + + + | Address | [address] | | | [place] [address] | + + + | Home Phone | | + + + | Preferred Language | Unknown | + + + | Marital Status | Single | + + + | Latter Day Affiliation | 1013 | + + + | Race | Unknown | + + + | Ethnic Group | Unknown | + + + Author + + + | Author | [facility] | | | and [place] | + + + | Organization | [facility] | | | and [place] | + + + | Address | Unknown | + + + | Phone | Unavailable | + + + Support + + +---------+ + | Name | Relationship | Address | Phone | + + +---------+ + | Kirti Colon | ECON | Unknown | | + + +---------+ + | Cindy Rodriguezon | ECON | Unknown | | + + +---------+ + Care Team Providers + +------+ + | Care Instrument Repairer Helper Name | Role | Phone | + +------+ + | Meet Small MD | PCP | | + +------+ + Reason for Referral Psychiatric (Routine) +--------+ + + + + + | Status | Reason | Specialty | Diagnoses / | Referred By | Referred To | | | | | Procedures | Contact | Contact | +--------+ + + + + + | Closed | Specialty | Licensed | Diagnoses | Eric, | Am[facility] | | | Services | Mental Health | Depression | Lin, DO | Romain, | | | Required | Therapist / | Anxiety | [address] | SAMAN Asencio | | | | Psychiatry | Procedures | [place] | [address] | | | | | CPT Code: | [place], [place] | [address] | | | | | [address] | [address] | [place], [place] | | | | | Initial | Phone: | [address] Phone: | | | | | Evaluation | [phone] | [phone] | | | | | for | Fax: | Fax: | | | | | Behavioral | [phone] | [phone] | | | | | Health | | | | | | | Counseling | | | +--------+ + + + + + Reason for Visit + + + | Reason | Comments | + + + | Annual Exam | pap/std screen, | + + + | Dysuria | strong odor | + + + | Contraception | birthcontrol pill | + + + Encounter Details +--------+---------+ + + + | Date | Type | Department | Care Team | Description | +--------+---------+ + + + | 05/16/ | Office | [facility] | Lin Reyes, DO | Well woman exam | | 2013 | Visit | [facility] | [address] | (Primary Dx); | | | | FAMILY MEDICINE [address] | [place] [address] | Dysuria; Family | | | | [address] | [phone] | planning; | | | | [place], [place] | | Contraception | | | | [address] | | management; | | | | [phone] | | Depression; Anxiety | +--------+---------+ + + + Social History [...] + + + | Blood Pressure | 110/80 | 05/16/2014 10:17 AM | | | | | PDT | | + + + + + | Pulse | 80 | 05/16/2014 10:17 AM | | | | | PDT | | + + + + + | Temperature | 36 C (96.8 F) | 05/16/2014 10:17 AM | | | | | PDT | | + + + + + | Respiratory Rate | 16 | 05/16/2014 10:17 AM | | | | | PDT | | + + + + + | Oxygen Saturation | - | - | | + + + + + | Inhaled Oxygen | - | - | | | Concentration | | | | + + + + + | Weight | 68 kg (150 lb) | 05/16/2014 10:17 AM | | | | | PDT | | + + + + + | Height | 165.1 cm (5' 5") | 05/16/2014 10:17 AM | | | | | PDT | | + + + + + | Body Mass Index | 24.96 | 05/16/2014 10:17 AM | | | | | PDT | | + + + + + documented in this encounter Patient Instructions Patient Instructions Lin Reyes, - 05/16/2014 10:32 AM PDTSertraline: start at 25mg, may increase to 50 mg in 1 week, then up to 75mg after another week if no improvement in sy mptoms. Depression Depression is one of the most common mental health problems today. It is not just a state o f unhappiness or sadness. It is a true disease. The cause seems to be related to a decrease in chemicals that transmit signals in the brain. Having a family history of depression, alco holism or suicide increases the risk. Chronic illness, chronic pain, migraine headaches and high emotional stress also increase the risk. Depression can cause many different symptoms, such as: -- Loss of appetite -- Over-eating -- Not being able to sleep -- Sleeping too much -- Tiredness not related to physical exertion -- Restlessness or irritability -- Slowness of movement or speech -- Feeling depressed or withdrawn -- Loss of interest in things you once enjoyed -- Difficulty in concentrating, poor memory, have trouble making decisions -- Thoughts of harming or killing oneself, or thoughts that life is not worth living -- Low self-esteem The best treatment for depression is a combination of medicine and psychotherapy. Antidepre ssant medicines can reduce suffering and can improve the ability to function during the depr essed period. Therapy can offer emotional support and help you understand emotional factors that may be causing the depression. Home Care: 1) Be kind to yourself. Make it a point to do things that you enjoy (gardening, walking in nature, going to a movie, etc.). Reward yourself for small successes. 2) Take care of your physical body. Eat a balanced diet (low in saturated fat and high in f ruits and vegetables). Establish an exercise plan at least 3 times a week for 30 minutes. Ev en mild-moderate exercise (like brisk walking) can make you feel better. 3) Avoid alcohol, which can make depression worse. Follow-Up with your doctor as advised. It is important to keep in contact with a health care provider until your symptoms begin to improve. Get Prompt Medical Attention if any of the following occur: -- Feeling extreme depression, fear, anxiety, or anger toward yourself or others -- Feeling out of control -- Feeling that you may try to harm yourself or another -- Hearing voices that others do not hear -- Seeing things that others do not see -- Can t sleep or eat for 3 days in a row 5719-5181 [facility], [address] [place] [address], [place] [address]. All rights reserve d. This information is not intended as a substitute for professional medical care. Always fo llow your healthcare professional's instructions. documented in this encounter Progress Notes Faviola Villagran CMA - 05/16/2014 11:28 AM PDT Anxiety Screening Tool (TRAM-7) Choose the one description for each item that best describes how many days you have been rylan thered by each of the following over the past 2 weeks: None Several 7 or more Nearly every day Feeling nervous, anxious, or on edge Unable to stop worrying x Worrying too much about different things x Problems relaxing x Feeling restless or unable to sit still x Feeling irritable or easily annoyed x Being afraid that something awful might happen x Score 11 Alcohol use: Have you ever felt the need to cut down on drinking alcohol? no Have you ever felt annoyed by others criticism of your drinking alcohol? no Have you ever felt guilty about drinking alcohol? no Have you had several sexual partners in the last year? no Have you ever used alcohol or drugs when swimming or driving a car or boat?no Nutrition Section/Physical Activity: Do you eat at least 5 servings of fruit and vegetables per day? no Do you eat or drink at least 3 servings of calcium-rich foods per day? No Do you eat more than 2 servings of red meat, high fat diary, and sweets daily? Yes Have you had your cholesterol level checked?No If yes, was it high ? no Do you describe yourself as an active person? No Safety Section: Do you wear a seatbelt every time you ride in a motorized vehicle? Yes Do you wear a helmet when you ride a bike, motorcycle, skateboard, ect? Yes Does someone change the battery in your smoke detector at least yearly? Yes Do you have a gun? If yes, is it securely locked away from others? No Sexuality: Are you using control every time you have sexual intercourse? No Have you had several sexual partners in the last year? no Do you have any urinary or sexual concerns you want to discuss today?yesElectronically sign ed by Faviola Villagran CMA at 05/16/2014 5:45 PM Alexandrea La MD - 05/16/2014 10:47 AM PDTThe patient was seen with the resident and I confirmed the pertinent history. I confirmed pertinent physical exam findings. The indications for treatment were reviewed and I agree with the overall assessment and car e plan as discussed. Any additional comments included below. Alexandrea Porras I was physically present for the procedure and directly observed and materially participate d while supervising the resident Lin Reyes DO. Any additional comments included below. Alexandrea Porras Lin Carranza DO - 05/16/2014 10:16 AM PDTFormatting of this note might be different from the or iginal. Subjective: Patient ID: Janie Yoo is a 29 y.o. female. 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 Has been to chemical dependency counseling: as not needed methadone or suboxone. Pt is smoking a lot of cigarettes (about 0.5ppd) as replacement for her heroin use. Has not felt the urge to use drugs, but her increased stress has made her sm marcelina more. Vaginal discharge & Hx of Veneral warts: Pt notes pungent white vaginal discharge for pats 1.5months. Pt denies any dysuria. Pt note s she is more worried about STDs give her vaginal symptoms & and questionable partner's christiano lity. Pt has had unprotected sex last was 1 mo ago, LMP was 1 month ago, pt is spotting now , worried she may be . Pt has genital herpes and has had the warts frozen off, she has a few that need to be treat ed today. Anxiety & Depression Hx Pt has tried prozac made her anxiety worse & wellbutrin did not help at all. Pt has trouble falling asleep due to unable to stop her thoughts. Pt has been using energy drinks to help her when she's tired & decreased appetite. Pt notes it has not been affecting her caring for her child. Contraception Pt has used SEASONIQUIE In the past and wants to start again. Patient's medications, allergies, past medical, surgical, social and family histories were reviewed and updated as appropriate. Review of Systems As noted above BP 110/80 | Pulse 80 | Temp 36 C (96.8 F) (Temporal) | Resp 16 | Ht 1.651 m (5' 5") | W t 68.04 kg (150 lb) | BMI 24.96 kg/m2 | LMP 05/16/2014 Objective: Physical Exam Vitals reviewed. Constitutional: She appears well-developed. No distress. Eyes: Conjunctivae normal are normal. Cardiovascular: Normal rate, regular rhythm and normal heart sounds. No murmur heard. Pulmonary/Chest: Effort normal and breath sounds normal. No respiratory distress. She has n o wheezes. Genitourinary: Vagina normal and uterus normal. No vaginal discharge found. Scant blood, no active source Psychiatric: She has a normal mood and affect. Her behavior is normal. Assessment & Plan: 1. Well woman exam Pap Smear Vaginal Pathogens DNA C. trachomatis and N. gonorrhoeae, NAAT 2. Dysuria Urinalysis with Microscopic with Culture if Indicated: negative for UTI 3. Family planning HCG, Urine, Qual: negative 4. Contraception management : levonorgestrel-ethinyl estradiol (SEASONIQUE) 0.15-0.03 &0.0 1 MG TABS 5. Depression PHQ-9 not done at this visit, but no thought of selfharm or harming child. Pt is out of time frame for depression sertraline (ZOLOFT) 25 mg tablet Ambulatory referral to Behavioral Health 6. Anxiety TRAM-7 score of 20 sertraline (ZOLOFT) 25 mg tablet Ambulatory referral to Behavioral Health Please see orders, instructions, medication sections of note for additional details. documented in this enc ounter Plan of Treatment + + +--------+ + + | Name | Type | Priori | Associated Diagnoses | Order Schedule | | | | ty | | | + + +--------+ + + | Vaginal Pathogens | Microbiolog | Routin | Well woman exam | Ordered: 05/16/2014 | | DNA | y | e | | | + + +--------+ + + | C. trachomatis and | Microbiolog | Routin | Well woman exam | Ordered: 05/16/2014 | | N. gonorrhoeae, NAAT | y | e | | | + + +--------+ + + + + +--------+ + + | Name | Type | Priori | Associated Diagnoses | Order Schedule | | | | ty | | | + + +--------+ + + | Ambulatory referral | Outpatient | Routin | Depression | Ordered: 05/16/2014 | | to Behavioral Health | Referral | e | Anxiety | | + + +--------+ + + documented as of this encounter Procedures + +--------+ + + + | Procedure Name | Priori | Date/Time | Associated Diagnosis | Comments | | | ty | | | | + +--------+ + + + | PAP SMEAR | Routin | 05/16/2014 | Well woman exam | Results for this | | | e | 11:48 AM | | procedure are in the | | | | PDT | | results section. | + +--------+ + + + documented in this encounter Results Pap Smear (05/16/2014 11:48 AM PDT) + + | Specimen | + + | Specimen from | | genital system | | (specimen) - Cervix | + + + + -+ | Narrative | Performed At | + + -+ | Gender: FAge: | REFER[facility] LAB | | 29Date of : 1985 CASE: [id number]: Janie | [facility] | | [facility] SPECIMEN DESCRIPTION: ThinPrep Imaged Liquid Pap | | | TestSPECIMEN SOURCE: CervicalDATE OF LAST MENSTRUAL PERIOD: 05/16/2014 | | | PAP INTERPRETATION NEGATIVE FOR INTRAEPITHELIAL LESION OR | | | MALIGNANCY. SPECIMEN ADEQUACY:Satisfactory for evaluation. | | | Endocervical/transformation zone componentpresent. Cheyanne Schumacher | | | CT(ASCP). Electronically signed 05/18/2014 12:09 Received Date: | | | 05/16/2014Collection Date: 05/16/2014Referring Physician: Ulisses LOYOLA, | | | Tiffany AAdditional Physician copies: | | |DATE OF LAST MENSTRUAL PERIOD: 05/16/2014 | | | | | | | | | | | | | | | | | | | | | | | | | | | | | |PAP INTERPRETATION | | | | | |NEGATIVE FOR INTRAEPITHELIAL LESION OR MALIGNANCY. | | | | | |SPECIMEN ADEQUACY: | | |Satisfactory for evaluation. Endocervical/transformation zone component | | |present. | | | | | | | | | | | | | | | | | | | | |Cheyanne Schumacher CT(ASCP). Electronically signed 05/18/2014 12:09 | | | | | |Received Date: 05/16/2014 | | |Collection Date: 05/16/2014 | | |Referring Physician: Tiffany Gtz MD | | |Additional Physician copies: | | + + -+ + + | Transcriptions | + + | Ethan Kaufman - 05/18/2014 12:00 AM PDT | + + + + + + + | Performing | Address | City/State/Zipcode | Phone Number | | Organization | | | | + + + + + | [facility] | [address] | [place] [address] | [phone] | | [facility] | [address] | | | + + + + [...] | Urine | | | [facility] | | | | | | C ORE | | | | | | L ABORATORY | | + + + +-- + + | Specific | 1.015 | 1.005 - 1.030 | [facility] | | | [place] | | | [facility] | [...] | [facility] | | | S T [facility] | [...] [facility] | | | SOURCE | by [facility] [address] | | [address] [facility] | | | | [address] [facility] [address] | | C JONN | | | |Performed by [facility] [address] [facility] [address] | | L ABORATORY | | + + + +-- + + + + | Specimen | + + | Urine specimen | | (specimen) | + + + + + + + | Performing | Address | City/State/Zipcode | Phone Number | | Organization | | | | + + + + + | [facility] | [address] | [place] [address] | [phone] | | [facility] | | | [...] | | Test, | | | [facility] | | | Urine, POC | | | CORE | | | | | | LABORATORY | | + + + + + + | Specific | 1.015Comment: Performed | 1.005 - 1.030 | [facility] | | | [place] | by [facility] [address] | | [facility] | | | | [address] [place] | | CORE | | | | [address] | | LABORATORY | | + + + + + + + + | Specimen | + + | Urine specimen | | (specimen) | + + + + + + + | Performing | Address | City/State/Zipcode | Phone Number | | Organization | | | | + + + + + | [facility] | [address] | [place] [address] | [phone] | | [facility] | | | | | LABORATORY | | | | + + + + + documented in this encounter Visit Diagnoses + + | Diagnosis | + + | Well woman exam - Primary Routine general medical examination at [facility] | | facility | + + | Dysuria | + + | Family planning Other general counseling and advice for contraceptive management | + + | Contraception management Unspecified contraceptive management | + + | Depression Depressive disorder, not elsewhere classified | + + | Anxiety Anxiety state, unspecified | + + documented in this encounter
--- OUTSIDE RECORDS SUMMARY | ~2019-09-20 | XMS | Encounter Summary ---
Demographics + + + | Address | [address] | | | [place] [address] | + + + | Home Phone | | + + + | Preferred Language | Unknown | + + + | Marital Status | Single | + + + | Hoahaoism Affiliation | 1013 | + + + | Race | Unknown | + + + | Ethnic Group | Unknown | + + + Author + + + | Author | [facility] | | | and Jeffana | + + + | Organization | [facility] | | [...] Team Providers + +------+ + | Care Patient Navigator Name | Role | Phone | + +------+ + | Meet Small MD | PCP | | + +------+ + Encounter Details +--------+ + + + + | Date | Type | Department | Care Team | Description | +--------+ + + + + | 05/16/ | Hospital | [facility] | Tiffany Gtz, | | | 2013 | Encounter | [facility] | MD [address] [place] [address] | | | | | CLINICAL LAB SERVS | [place], [place] | | | | | [address] | [address] | | | | | [place], [place] | | | | | | [address] | | | | | | [phone] | | | +--------+ + + + [...] | + +--------+ + + + | VAGINAL PATHOGENS | Routin | 05/16/2014 | | Results for this | | DNA | e | 11:09 AM | | procedure are in the | | | | PDT | | results section. | + +--------+ + + + | C. TRACHOMATIS AND | Routin | 05/16/2014 | | Results for this | | N. GONORRHOEAE, NAAT | e | 11:09 AM | | procedure are in the | | | | PDT | | results section. | + +--------+ + + + documented in this encounter Results Vaginal Pathogens DNA (05/16/2014 11:09 AM PDT) + + + + + + | Component | Value | Ref Range | Performed | Pathologist | | | | | At | Signature | + + + + + + | Trichomonas | Neg | Neg | [facility] | | | vaginalis, | | | [facility] | | | DNA probe | | | CORE | | | | | | LABORATORY | | + + + + + + | Gardnerella | Neg | Neg | [facility] | | | vaginalis, | | | [facility] | | | DNA probe | | | CORE | | | | | | LABORATORY | | + + + + + + | Krissy | Pos (A)Comment: | Neg | [facility] | | | Species, | Performed by [facility] | | [facility] | | | DNA probe | [address] [place] | | CORE | | | | [place] [address] | | LABORATORY | | + + + + + + + + | Specimen | + + | Specimen from | | genital system | | (specimen) | + + + + + + + | Performing | Address | City/State/Zipcode | Phone Number | | Organization | | | | + + + + + | [facility] | [address] | [place] [address] | [phone] | | [facility] | | | | | LABORATORY | | | | + + + + + C. trachomatis and N. gonorrhoeae, NAAT (05/16/2014 11:09 AM PDT) + + + + + + | Component | Value | Ref Range | Performed | Pathologist | | | | | At | Signature | + + + + + + | Chlamydia | Neg | Neg | [facility] | | | trachomatis | | | [facility] | | | DNA PCR | | | CORE | | | | | | LABORATORY | | + + + + + + | Neisseria | Neg | Neg | [facility] | | | gonorrhoeae | | | [facility] | | | DNA PCR | | | CORE | | | | | | LABORATORY | | + + + + + + | CT/NG | Cervix - Swab | | [facility] | | | SOURCE | | | [facility] | | | | | | CORE | | | | | | LABORATORY | | + + + + + + | Comment | See CommentsComment: | | [facility] | | | | C. trachomatis DNA not | | [facility] | | | | detected. Specimen is | | CORE | | | | presumptively negative | | LABORATORY | | | | for C. trachomatis. | | | | | | Testing performed on the | | | | | | catrina 4800 manufactured | | | | | | by [facility] [employer]. | | | | | | This assay is an FDA | | | | | | approved diagnostic test | | | | | | for Chlamydia | | | | | | trachomatis and | | | | | | Neisseria gonorroeae on | | | | | | urine, vaginal samples | | | | | | collected by a | | | | | | clinician, endocervical | | | | | | swabs and ThinPrep | | | | | | liquid pap media by | | | | | | detection of pathogen | | | | | | DNA using real-time PCR. | | | | + + + + + + | Comment | See CommentsComment: | | [facility] | | | | N. gonorrhoeae DNA not | | [facility] | | | | detected. Specimen is | | CORE | | | | presumptive negative for | | LABORATORY | | | | N. gonorrhoeae. | | | | | | Testing performed on the | | | | | | catrina 4800 manufactured | | | | | | by [employer]. | | | | | | This assay is an FDA | | | | | | approved diagnostic test | | | | | | for Chlamydia | | | | | | trachomatis and | | | | | | Neisseria gonorroeae on | | | | | | urine, vaginal samples | | | | | | collected by a | | | | | | clinician, endocervical | | | | | | swabs and ThinPrep | | | | | | liquid pap media by | | | | | | detection of pathogen | | | | | | DNA using real-time | | | | | | PCR.Performed by | | | | | | [facility] [address] | | | | | | [place] [address] | | | | + + + + + + + + | Specimen | + + | Specimen from | | genital system | | (specimen) | + + + + + + + | Performing | Address | City/State/Zipcode | Phone Number | | Organization | | | | + + + + + | [facility] | [address] | [place] [address] | [phone] | | [facility] | | | | | LABORATORY | | | | + + + + + documented in this encounter Visit Diagnoses Not on filedocumented in this encounter"
--- OUTSIDE RECORDS SUMMARY | ~2019-09-20 | XMS | Encounter Summary ---
Demographics + + + | Address | [address] | | | [place] [address] | + + + | Home Phone | | + + + | Preferred Language | Unknown | + + + | Marital Status | Single | + + + | Protestant Affiliation | 1013 | + + + | Race | Unknown | + + + | Ethnic Group | Unknown | + + + Author + + + | Author | [facility] | | | and [place]ana | + + + | Organization | [facility] | | | [...] Team Providers + +------+ + | Care Convex Grinder Name | Role | Phone | + +------+ + | Gordon Rivero MD | PCP | | + +------+ + Reason for Visit + + + | Reason | Comments | + + + | Records Request | maternal medicine records | + + + Encounter Details +--------+ + + + + | Date | Type | Department | Care Team | Description | +--------+ + + + + | 09/22/ | Documentati | [facility] | Gordon Rivero MD | Records Request | | 2013 | on | [facility] | [address] | (maternal | | | | FAMILY MEDIC[address] | [place] [address] | medicine records) | | | | [place] | [phone] | | | | | [place], [place] | | | | | | [address] | | | | | | [phone] | | | +--------+ + + + [...] + + documented as of this encounter Progress Notes Gordon Rivero MD - 09/22/2013 7:51 AM PSTmaternal medicine records received [facility] A: suspected Blakes pouch cyst, CMV & toxo excluded P: MRI with peds neurosurg referral to follow. echocardiogram. Tertiary [facility] delivery if hydrocephalus develops. documented in this encounter Plan of Treatment Not on filedocumented as of this encounter Visit Diagnoses + + | Diagnosis | + + | Supervision of other normal - Primary | + + documented in this encounter"
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
--- OUTSIDE RECORDS SUMMARY | ~2019-09-20 | XMS | Encounter Summary ---
Demographics + + + | Address | [address] | | | [place] [address] | + + + | Home Phone | | + + + | Preferred Language | Unknown | + + + | Marital Status | Single | + + + | Religion Affiliation | 1013 | + + + | Race | Unknown | + + + | Ethnic Group | Unknown | + + + Author + + + | Author | [facility] | | | and [place] | + + + | Organization | [facility] | | [...] Team Providers + +------+ + | Care Street Roller Engineer Name | Role | Phone | + +------+ + | Wesley Dinero | PCP | | | GRANITE POLISHER | | | + +------+ + Reason for Visit + + + | Reason | Comments | + + + | Oral Swelling | | + + + Encounter Details +--------+ + + + + | Date | Type | Department | Care Team | Description | +--------+ + + + + | 01/24/ | Emergency | [facility] | Alicia Hagan, | Acute pharyngitis; | | 2011 | | [facility] | [place] [address] [facility] | UTI (urinary tract | | | | EMERGENCY CENTER | [address] | infection); Perineal | | | | [address] | [place], [place] | folliculitis | | | | [place], [place] | [address] | | | | | [address] | [phone] | | | | | [phone] | | | +--------+ + + + [...] + + + | Blood Pressure | 116/70 | 01/25/2012 1:24 PM | | | | | PDT | | + + + + + | Pulse | 93 | 01/25/2012 1:24 PM | | | | | PDT | | + + + + + | Temperature | 37 C (98.6 F) | 01/25/2012 1:24 PM | | | | | PDT | | + + + + + | Respiratory Rate | 18 | 01/25/2012 1:24 PM | | | | | PDT | | + + + + + | Oxygen Saturation | 99% | 01/25/2012 1:24 PM | | | | | PDT | | + + + + + | Inhaled Oxygen | - | - | | | Concentration | | | | + + + + + | Weight | - | - | | + + + + + | Height | - | - | | + + + + + | Body Mass Index | - | - | | + + + + + documented in this encounter Discharge Instructions Instructions Alicia Hagan PA - 01/25/2012Take antibiotics until completely gone. Change your razor blade in your razor. Stay on top of Tylenol and ibuprofen for pain and fevers. We will call you if any of your cultures come up positive. Use the Pyridium for the pain. AttachmentsThe following attachments cannot be sent through Care Everywhere.PHARYNGITIS, ST REP (PRESUMED) (UZBEK)documented in this encounter Medications at Time of Discharge + + + +---------+ + + | Medication | Sig | Dispensed | Refills | Start | End Date | | | | | | Date | | + + + +---------+ + + | cephalexin | Take 1 capsule by | 30 | 0 | 01/25/20 | | | (KEFLEX) 500 mg | mouth 3 times daily | capsule | | 12 | 2 | | capsule | for 10 days. | | | | | + + + +---------+ + + | FLUoxetine | Take 20 mg by mouth | | 0 | | | | (PROZAC) 20 mg | daily. | | | | 3 | | capsule | | | | | | + + + +---------+ + + | Levonorgest-Eth | BCP | | 0 | | | | Estrad Day | | | | | 3 | | (SEASONIQUE PO) | | | | | | + + + +---------+ + + | LORazepam (ATIVAN) | | | 0 | | | | 1 mg tablet | | | | | 3 | + + + +---------+ + + | MACROBID 100 MG | Take 1 capsule by | 20 | 0 | 01/25/20 | | | capsule | mouth 2 times daily | capsule | | 12 | 2 | | | for 7 days. | | | | | + + + +---------+ + + | phenazopyridine | Take 1 tablet by | 3 | 0 | 01/25/20 | | | (PYRIDIUM) 200 mg | mouth every 8 hours. | tablet | | 12 | 3 | | tablet (ED prepack) | | | | | | + + + +---------+ + + | zolpidem (AMBIEN) | | | 0 | | | | 5 mg tablet | | | | | 3 | + + + +---------+ + + documented as of this encounter Plan of Treatment + + +--------+ + + | Name | Type | Priori | Associated Diagnoses | Order Schedule | | | | ty | | | + + +--------+ + + | Herpes Simplex PCR | Microbiolog | STAT | | One Time for 1 | | | y | | | Occurrences starting | | | | | | 01/25/2012 until | | | | | | 01/25/2012 | + + +--------+ + + | Urinalysis with | Lab | Routin | | 1 Occurrences | | microscopic | | e | | starting 01/25/2012 | | | | | | until 01/24/2013 | + + +--------+ + + | Herpes simplex, CSF, | Microbiolog | STAT | | Once for 1 | | NAAT | y | | | Occurrences starting | | | | | | 01/25/2012 until | | | | | | 01/25/2012 | + + +--------+ + + documented as of this encounter Procedures + +--------+ + + + | Procedure Name | Priori | Date/Time | Associated Diagnosis | Comments | | | ty | | | | + +--------+ + + + | VAGINAL PATHOGENS | Routin | 01/25/2012 | | Results for this | | DNA | e | 3:40 PM | | procedure are in the | | | | PDT | | results section. | + +--------+ + + + | WET MOUNT, GENITAL | STAT | 01/25/2012 | | Results for this | | | | 3:40 PM | | procedure are in the | | | | PDT | | results section. | + +--------+ + + + | POCT TEST, | STAT | 01/25/2012 | | Results for this | | URINE, QUAL | | 3:30 PM | | procedure are in the | | | | PDT | | results section. | + +--------+ + + + | C. TRACHOMATIS AND | STAT | 01/25/2012 | | Results for this | | N. GONORRHOEAE, NAAT | | 3:27 PM | | procedure are in the | | | | PDT | | results section. | + +--------+ + + + | CULTURE, HERPES | STAT | 01/25/2012 | | Results for this | | SIMPLEX VIRUS | | 3:27 PM | | procedure are in the | | | | PDT | | results section. | + +--------+ + + + documented in this encounter Results Vaginal Pathogens- Affirm Test (01/25/2012 3:40 PM PDT) + + + + + + | Component | Value | Ref Range | Performed | Pathologist | | | | | At | Signature | + + + + + + | AFFIRM DNA | Performed | | [facility] | | | [facility] | | [facility] | | | | | | [facility]AT[facility] | | + + + + + + | TRICHOMONAS | Negative | Negative | [facility] | | | | | [facility] | | | [facility] | | | | | | LABORATORY | | + + + + + + | Gardnerella | Negative | Negative | [facility] | | | vaginalis, | | | [facility] | | | DNA probe | | | CORE | | | | | | LABORATORY | | + + + + + + | Krissy Ag | Negative | Negative | [facility] | | | | | [...] | + + + + + | [address] | [address] | [place] [address] | [phone] | | [facility] | | | | | LABORATORY | | | | + + + + + Wet Mount, Genital (01/25/2012 3:40 PM PDT) + + + + + + | Component | Value | Ref Range | Performed | Pathologist | | | | | At | Signature | + + + + + + | Specimen | Cervix | | [facility] | | | Source | | | [facility] | | | | | [facility]ORE | | | | | | LABORATORY | | + + + + + + | YEAST | None Seen | | [facility] | | | | | | [facility] | | [facility] | [facility] | | | | | | LABORATORY | | + + + + + + | CLUE CELLS | None Seen | | [facility] | | | WET PREP | | | [facility] | | | | | [facility] | | | | | | LABORATORY | | + + + + + + | TRICHOMONAS | None Seen | | [facility] | | | | | | [facility] | | | | | [facility] | | | | | | LABORATORY | | + + + + + + + + | Specimen | + + | Specimen from | | genital system | | (specimen) - Cervix | + + + + + + + | Performing | Address | City/State/Zipcode | Phone Number | | Organization | | | | + + + + + | [address] | [address] [place] [address] NE | [place] [address] | [phone] | | [facility] | | | | | LAB[facility]AT[facility] | | | | + + + + + POCT Urine Screen (01/25/2012 3:30 PM PDT) + + + + + + | Component | Value | Ref Range | Performed | Pathologist | | | | | At | Signature | + + + + + + | | Negative | | | | | Test, | | | | | | Urine, POC | | | | | + + + + + + | Internal QC | Acceptable | (none) | | | + + + + + + + + | Specimen | + + | Urine specimen | | (specimen) | + + Culture, Herpes Simplex Virus (01/25/2012 3:27 PM PDT) + + + + + + | Component | Value | Ref Range | Performed | Pathologist | | | | | At | Signature | + + + + + + | Final | No Herpes simplex Virus | | [facility] | | | Result [...] | + + + + + | [address] | [address] [place] [address] NE | [place] [address] | [phone] | | [facility] | | | | | LAB[facility]ATORY | | | | + + + + + C trachomatis/N gonorrhoeae PCR (01/25/2012 3:27 PM PDT) + + + + + + | Component | Value | Ref Range | Performed | Pathologist | | | | | At | Signature | + + + + + + | Specimen | Cervix | | [facility] | | | Source | | | [facility] | | | | | | [facility]ORE | | | | | | LABORATORY | | + + + + + + | Chlamydia | Negative | | [facility] | | | Trachomatis | | | [facility] | | | Naat | | | CORE | | | | | | LABORATORY | | + + + + + + | NEISSERIA | Negative | | [facility] | | | GONORRHOEAE | | | [facility] | | | DNA | | | CORE | | | | | | LABORATORY | | + + + + + + + + | Specimen | + + | Specimen from | | genital system | | (specimen) - Cervix | + + + + + + + | Performing | Address | City/State/Zipcode | Phone Number | | Organization | | | | + + + + + | [facility] | [address] | [place] [address] | [phone] | | [facility] | | | | | LABORATORY | | | | + + + + + documented in this encounter Visit Diagnoses + + | Diagnosis | + + | Acute pharyngitis | + + | UTI (urinary tract infection) Urinary tract infection, site not specified | + + | Perineal folliculitis Other specified disease of hair and hair follicles | + + documented in this encounter"
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
--- OUTSIDE RECORDS SUMMARY | ~2019-09-20 | XMS | Encounter Summary ---
Demographics + + + | Address | [address] | | | [place] [address] | + + + | Home Phone | | + + + | Preferred Language | Unknown | + + + | Marital Status | Single | + + + | Mormon Affiliation | 1013 | + + + | Race | Unknown | + + + | Ethnic Group | Unknown | + + + Author + + + | Author | [facility] | | | and [place] | + + + | Organization | [facility] | | | [...] Team Providers + +------+ + | Care Hha Name | Role | Phone | + +------+ + | Grodon Rivero MD | PCP | | + +------+ + Reason for Visit + + + | Reason | Comments | + + + | Routine | 38+2 | | Visit | | + + + Encounter Details +--------+ + + + + | Date | Type | Department | Care Team | Description | +--------+ + + + + | 10/10/ | Routine | [facility] | Gordon Rivero MD | GA: 38w2d | | 2013 | | [address] [facility] | [address] | | | | | [address] | [place] [address] | | | | | [place] | [phone] | | | | | [place] | | | | | | [address] | | | | | | [phone] | | | +--------+ + + + [...] + + + | Blood Pressure | 104/64 | 10/10/2013 8:42 AM | | | | | PST [...] + + + + | Weight | 92.5 kg (204 lb) | 10/10/2013 8:42 AM | | | | | PST | | + + + + + | Height | - | - | | + + + + + | Body Mass Index | 32.93 | 09/14/2013 8:46 PM | | | | | PST | | + + + + + documented in this encounter Patient Instructions Patient Instructions Kalli Anglin CMA - 10/10/2013 8:44 AM PST Thank you for your recent visit. You may receive a survey in the mail, by returning the gonzales vey your input will help us improve. Thank you documented in this encounter Progress Notes Gordon Rviero MD - 10/10/2013 12:21 PM PSTDepression and anxiety resolved from problem lis t based on sx inventories below. 12:2 2 PM PSTKalli Anglin CMA - 10/10/2013 9:19 AM PSTFormatting of this note might be d ifferent from the original. Gonzales Anxiety Inventory Place an X/number in the box that applies Not at all =0 Mildly but it didn t bother me much =1 Moderately- it wasn t pleasant at times =2 Severely- it bothered me a lot =3 Numbness or tingling x Feeling hot x Wobbliness in legs x Unable to relax x Fear of worst happening x Dizzy or lightheaded x Heart pounding/racing x Unsteady x Terrified or afraid x Nervous x Feeling of choking x Hands trembling x Shaky/unsteady x Fear of losing control x Difficulty in breathing x Fear of dying x Scared x Indigestion x Faint/lightheaded x Face flushed x Hot/cold sweats x Column sum 0 3 0 0 Scoring- sum each column. Then sum the column totals to achieve the grand score. Write that score here: 3 9: 40 AM Kalli Finch CMA - 10/10/2013 9:19 AM PSTPHQ9 Depression Scale: PHQ-9 To emiliana Score: 0 Interpretation of Total Score: 1-4 = Minimal depression, 5-9 = Mild depression, 10-14 = Moderate depression, 15-19 = Moderately severe depression, 20-27 = Severe depressio n 1. Little interest or pleasure in doing things: Not at all 2. Feeling down, depressed, or hopeless: Not at all 3. Trouble falling or staying asleep, or sleeping too much: Not at all 4. Feeling tired or having little energy: Not at all 5. Poor appetite or overeating: Not at all 6. Feeling bad about yourself - or that you are a failure or have let yourself or your fami ly down: Not at all 7. Trouble concentrating on things, such as reading the newspaper or watching television: N ot at all 8. Moving or speaking so slowly that other people could have noticed. Or the opposite - tara ng so fidgety or restless that you have been moving around a lot more than usual: Not at all 9. Thoughts that you would be better off , or of hurting yourself in some way: Not at a ll 10. Sourav Kirby MD - 10/10/2013 9:13 AM PSTThe patient's medical care was reviewed during or immediately afte r the visit with the resident. The review included the patient's medical history and diagno sis, the resident s findings on physical examination, and the treatment plan. I agree with the overall assessment and care plan as documented. Any additional comments included below. Dates based on 2nd trimester US. Last reported heroin 05/2013; denies more recent use. One recent isolated +utox for opiates (not explained by patient). CPS not involved with other child at this time. SW to be involve d and mec/urine tox Large cerebral ventricles with visits to [facility] (need records). Will need MRI. Poor dentition with abscesses during this , recurrence of possible early abscess, referred to dentist and Dr. Rivero will start abx tomorrow pending affirm results (augmenti n if no BV; amoxicillin or PCN + flagyl if positive for BV) SOURAV Hardingectronically signed by Sourav Ayala MD at 10/10/2013 9:40 AM Gordon Amador MD - 10/10/2013 8:48 AM PST28 y.o. A POS @ 38w2d by 27wk , here for routine OB visit. C/o vaginal itch and odor. C/o ongoing right lower jaw pain at location of abscess s/p abx improved and then worse, no fever. Reports recent f/u US and visit with [facility] shows no hydrocephalus so routine delivery a nd f/u MRI ; we are requesting records. Good movement, no vaginal d/c or bleeding, no dysuria, no constipation. Fundal height, FHT, weight gain more than recommended and vital signs are appropriate. Right lower jaw broken teeth, gums acutely erythematous without fluctuance. 1. Routine care, excessive weight gain, and discussed the following today: postdat es management. 2. ventriculomegally without hydrocephalus, requested [facility] records & anticipate PP ref erral to peds neuro. 3. H/o substance abuse, opiate + 1/ this . Support offered and reminded I plan t o screen baby and notify CPS for informational purposes. Plan to request social work to not ion other facilities in case she delivers elsewhere. 4. Dental abscess vs infection, appears to be flaring again likely due to diseased teeth. Advised to call her [facility] dentist for appointment as soon as possible, and I will call her tomorrow with abx rx pending test for BV (below); plan augmentin vs amox + metro. 5. BV: subjective vaginitis similar to prior BV tx this . Will check Affirm. F/u 1 weeks for BG. documented in this enco unter Plan of Treatment + + +--------+ + + | Name | Type | Priori | Associated Diagnoses | Order Schedule | | | | ty | | | + + +--------+ + + | Vaginal Pathogens | Microbiolog | Routin | Vaginitis | Ordered: 10/10/2013 | | DNA | y | e | | | + + +--------+ + + documented as of this encounter Results Drugs of [...] | 6.5 | 5.0 - 8.0 | [facility] | [...] | + + + + + | [facility] | [address] | [place] [address] | [phone] | | [facility] | | | | | LABORATORY | | | | + + + + + documented in this encounter Visit Diagnoses + + | Diagnosis | + + | Supervision of other normal - Primary | + + | Polysubstance abuse (HCC) Other, mixed, or unspecified nondependent drug abuse, | | unspecified | + + | Vaginitis Vaginitis and vulvovaginitis, unspecified | + + documented in this encounter"
--- OUTSIDE RECORDS SUMMARY | ~2019-09-20 | XMS | Encounter Summary ---
Demographics + + + | Address | [address] | | | [place] [address] | + + + | Home Phone | | + + + | Preferred Language | Unknown | + + + | Marital Status | Single | + + + | Tenriism Affiliation | 1013 | + + + | Race | Unknown | + + + | Ethnic Group | Unknown | + + + Author + + + | Author | [facility] | | | and [place] | + + + | Organization | [facility] | | | [...] Team Providers + +------+ + | Care Press Cutter Name | Role | Phone | + +------+ + | Gordon Rivero MD | PCP | | + +------+ + Reason for Visit + + + | Reason | Comments | + + + | Vaginitis | | + + + Encounter Details +--------+ + + + + | Date | Type | Department | Care Team | Description | +--------+ + + + + | 07/21/ | Telephone | [facility] | Gordon Rievro MD | Jason | | [address] | | [address] [facility] | [address] | | | | | [address] | [place] [address] | | | | | [place] | [phone] | | | | | [place] | | | | | | [address] | | | | | | [phone] | | | +--------+ + + + [...]
--- OUTSIDE RECORDS SUMMARY | ~2019-09-20 | XMS | Encounter Summary ---
Demographics + + + | Address | [address] | | | [place] [address] | + + + | Home Phone | | + + + | Preferred Language | Unknown | + + + | Marital Status | Single | + + + | Episcopalian Affiliation | 1013 | + + + | Race | Unknown | + + + | Ethnic Group | Unknown | + + + Author + + + | Author | [facility] | | | and [place] | + + + | Organization | [facility] | | | and [...] Team Providers + +------+ + | Care Rn Clinical Resource Name | Role | Phone | + [...] | | [address] | [place] [address] | | | | | [place] | [phone] | | | | | [place] | | | | | | [address] | | | | | | [phone] | | | +--------+ + + + [...] encounter Patient Instructions Patient Instructions Kalli Anglin, [facility] - 09/27/2013 8:44 AM [facility] Thank you for your recent visit. You [...] afford the prescribed medication, you can try cnzb-mpr-llxgetj acid blockers, such as Pepcid AC, Tagamet, [...] or as directed by your healthcare provider [id number] [facility], [address] [place] [address]. All rights reserve d. This information is [...] GBS screen done today with kalli as manager of recruiting. 2. Weight gain 40#, advised watch calories 3. MFM for cerebral ventriculomegally pending, no hydrocephalus noted yet so delivery at not indicated yet. Has echocardiogram and brain MRI later this week. 4. Heartburn: handout given and has Rx ranitidine available. 5. H/o substance abuse, repeat UDS (all negative so far). And repeat STI screens. F/u 1 weeks for BG. [facility] umented in this encounter Plan of [...] + + + + + | [facility] | [address] | [place] [address] | [phone] | | [facility] | | | [...] + | [address] | [address] | [place] [address] | [phone] | | [facility] | | | [...] + + | [facility] | [address] [place] [address] | [place] [address] | [phone] | | [facility] | | | [...]
--- OUTSIDE RECORDS SUMMARY | ~2019-09-20 | XMS | Encounter Summary ---
Demographics + + + | Address | [address] | | | [place] [address] | + + + | Home Phone | | + + + | Preferred Language | Unknown | + + + | Marital Status | Single | + + + | Christian Affiliation | 1013 | + + + [...] Team Providers + +------+ + | [facility] [employer] Consultant Name | Role | Phone | + +------+ + | Gordon Riveor MD | PCP | | + +------+ + Encounter Details +--------+ + + + + | Date | Type | Department | Care Team | Description | +--------+ + + + + | 08/29/ | Hospital | [facility] | Abundio Taveras MD [phone] | Supervision of other | | 2012 | Encounter | [facility] | [address] | normal ; | | | | CLINICAL LAB SERVS | [place] [address] | Polysubstance abuse | | | | [address] | [phone] | | | | | [place], [place] | | | | | | [address] | | | | | | [phone] | | | +--------+ + + + [...] | | | | | | [facility] | | | | | | CORE [...] | + + + + + | [address] | [address] | [place] [address] | [phone] | | [facility] | | | [...]
--- OUTSIDE RECORDS SUMMARY | ~2019-09-20 | XMS | Encounter Summary ---
Demographics + + + | Address | [address] | | | [place] [address] | + + + | Home Phone | | + + + | Preferred Language | Unknown | + + + | Marital Status | Single | + + + | Rastafarian Affiliation | [id number] | + + + [...] Team Providers + +------+ + | Care Yard Crane Operator Name | Role | Phone | + +------+ + | Gordon Rivero MD | PCP | | + +------+ + Reason for Referral Evaluate & Treat (Routine) +--------+ + + + + + | Status | Reason | Specialty | Diagnoses / | Referred By | Referred To | | | | | Procedures | Contact | Contact | +--------+ + + + + + | Closed | Specialty | | Diagnoses | Leighty, | | | | Services | Services / | Supervision | MD Gordon | | | | Required | | of other | [address] | | | | | and | [address] | [address] | | | | | | | [place] | | | | | | | [address] | | | | | | | Phone: | | | | | | | [phone] | | | | | | | Fax: | | | | | | | [phone] | | +--------+ + + + + + (Routine) +--------+ + + + + + | Status | Reason | Specialty | Diagnoses / | Referred By | Referred To | | | | | Procedures | Contact | Contact | +--------+ + + + + + | Closed | Specialty | Obstetrics | Diagnoses | Mat, | | | | Services | and | Supervision | MD Gordon | | | | Required | Gynecology | of other | [address] | | | [address] | [address] | | | | | | | [place], [place] | | | | | | | [address] | | | | | | | Phone: | | | | | | | [phone] | | | | | | | Fax: | | | | | | | [phone] | | +--------+ + + + + + Reason for Visit + + + | Reason | Comments | + + + | Rupture of Membranes | | + + + Auth/Cert +--------+--------+ + + + + | [...] | | | 10/22/13, | | [address] | | | | | [address] | | [place], | | | | | | | [place] [address] | | | | | | | Phone: | | | | | | | [phone] | | | | | | | Fax: | | | | | | | [phone] | +--------+--------+ + + + + Encounter Details +--------+ + + + + | Date | Type | Department | Care Team | Description | +--------+ + + + + | 10/13/ | Hospital | [facility] | Anastacia La MD | Asthma (Primary Dx); | | 2013 - | Encounter | [facility] | [address] | Dental infection; | | | [address] | [place] [address] | BV (bacterial | | 10/15/ | | [address] | [phone] | vaginosis); | | 2013 | | [place], [place] | | Supervision of other | | | | [address] | | normal ; | | | | [phone] | | Polysubstance abuse | +--------+ + + + + Social [...] + + + | Blood Pressure | 105/56 | 10/14/2013 1:50 AM | | | | | PST | | + + + + + | Pulse | 78 | 10/14/2013 1:50 AM | | | | | PST | | + + + + + | Temperature | 36.2 C (97.2 F) | 10/14/2013 1:50 AM | | | | | PST | | + + + + + | Respiratory Rate | 18 | 10/14/2013 1:50 AM | | | | | PST | | + + + + + | Oxygen Saturation | 97% | 10/13/2013 9:13 PM | | | | | PST | | + + + + + | Inhaled Oxygen | - | - | | | Concentration | | | | + + + + + | Weight | 92.1 kg (203 lb) | 10/13/2013 8:44 AM | | | | | PST | | + + + + + | Height | 167.6 cm (5' 6") | 10/13/2013 8:44 AM | | | | | PST | | + + + + + | Body Mass Index | 32.77 | 10/13/2013 8:44 AM | | | | | PST | | + + + + + documented in this encounter Discharge Summaries Anastacia La MD - 10/15/2013 9:48 AM PSTThe patient was seen with the resident and I co nfirmed the pertinent history. I confirmed pertinent physical exam findings, and agree with physical exam as documented. The indications for treatment were reviewed and I agree with the overall assessment and car e plan as documented. Any additional comments included below. Anastacia La Gordon Amador MD - 9:48 AM PSTHospital Discharge Summary: Maternal Date of Admission: 10/13/13 Date of Discharge: 10/15/2013 Attending Resident: Gordon Rivero MD Attending Physician: Dr La Discharge Diagnoses: 1. 2. Dental infection 3. Bacterial Vaginosis 4. Polysubstance abuse 5. Labor Procedures: Induction (Type): yes - augmentation for SROM AROM: no IUPC: no IFM: no Amnioinfusion: no Antibiotics: no Epidural: yes Delivery Procedures: : yes : no Vacuum: no Episiotomy: no Laceration: yes - 2nd deg perineal repaired, bilateral periurethral 1st deg Complications: no Consultations: anesthesia Hospital Course: Vital Signs: Normal Feeding Method: plans to breastfeed Post- H/H: n/a Medications Given in Hospital: MMR: yes RhoGAM: no Antibiotics: yes - amox & flagyl Depo-Provera Contraception Choice: Mirena Rodanthe Medications: vitamin D 4000 units daily Follow-up: 6 weeks to discuss mirena & f/u substance abuse D/C exam: Subjective: pain little, little bleeding, complaining of none, latching well. Objective: Temp: [36 C (96.8 F)-36.6 C (97.9 F)] 36 C (96.8 F) Pulse: [70-84] 82 Resp: [16-19] 16 BP: (102-119)/(60-70) 109/60 mmHg General: NAD HEENT: sclera clear, lips pink and moist. Cardiovascular: RRR no M/R/G Pulmonary: respirations unlabored Abdomen: soft, nontender, uterine fundus firm. Lower extremities: no edema. Skin: no visible rash. Neuro: CN grossly intact and moving all extremities well. MSK: strength grossly intact. documented in this enc ounter Discharge Instructions Instructions Keshia Cueva RN - 10/15/2013fter Your Delivery Follow-up Appointment: in 6 weeks Phone number [phone] Notify your doctor if any of the following symptoms develop: Fever - Oral temperature greater than 100.4 degrees Fahrenheit Foul-smelling vaginal discharge Headache unrelieved by pain medication Difficulty urinating Breasts reddened, hot, tender/painful to the touch New calf pain especially if only on one side Sudden, continuing increased vaginal bleeding with or without clots Unrelieved feelings of: Inability to cope Sadness Anxiety Lack of interest in baby Insomnia Crying What to do at home: See patient education handouts for full information Resume activity gradually Don't lift anything heavier than baby and carrier until OK'd by your Physician or Midwif e No sex until OK'd by your Physician or Weekend Receptionist Take care of yourself by sleeping/resting as much as possible Eat regular nutritious meals Let someone else care for you, your baby, and housework as much as possible Take pain medication as prescribed whenever you need them To avoid/relieve constipation take stool softeners as advised and increase the fiber in your diet Drink lots of water Refer to [facility] or discharge video for questions documented in this encounter Medications at Time of [...] +---------+ + + | amoxicillin | Take 1 tablet by | 14 | 0 | 10/10/19 | | | (AMOXIL) 875 mg | mouth 2 times daily | tablet | | 14 | 4 | | tabletIndications: | for 7 days. | | | | | | Dental infection | | | | | | + + + +---------+ + + | lactobacillus | Take 1 capsule by | 60 | 0 | 10/10/19 | | | (CULTERELLE) CAPS | mouth 3 times daily | capsule | | 14 | 4 | | capsuleIndications: | (with meals) for 10 | | | | | | Dental infection | days. Probiotic to | | | | | | | use with | | | | | | | antibiotics. | | | | | + + + +---------+ + + | metroNIDAZOLE | Take 1 tablet by | 14 | 0 | 10/10/19 | | | (FLAGYL) 500 MG | mouth every 12 hours | tablet | | 14 | 4 | | tabletIndications: | | | | | | | BV (bacterial | | | | | | | vaginosis), Dental | | | | | | | infection | | | | | | + + + +---------+ + + documented as of this encounter Progress Notes Keshia Cueva, RN - 10/15/2013 1:26 PM PSTPt. Discharged home in stable condition with in alex in car seat. Verbalizes understanding of discharge video and instructions given. Electr onically signed by Keshia Cueva RN at 10/15/2013 1:26 PM Omar Sim RN - 014 9:15 AM PSTMom states that babe continues to latch well to both sides, no concern at th is time. Bf norms and aap guidelines discussed, enc freq fdgs with careful latch, follow lac t guide for bf expectations and cb prn any questions concerns, Karen Gardner RN - 10/14/2013 4:48 PM PSTMom rep orts latched and nursed comfortably for 15 mins. Observed her to latch on opposite s georges with good technique, but too sleepy to suck. Encouraged to arouse Q 3 hours. FU in am. Gordon Amador MD - 10/14/2013 12:32 PM PSTR2 Progress Note Notified CPS of concern for late to care, admitted h/o heroin last 05/2013, opiate positive UDS on 4th out of 7 tests that patient was unable to explain. Adherent to care and seems appropriate with baby and well supported by family and friends [place] and social [place] of drug use. Pt tells me she is connected with all appropriate resourc es. My intention with call is information only not requesting investiation at this time. W ill update with [facility] tox results if positive. Previously d/w pt that i would be making this notification. Gordon Rivero MD Anastacia Shea MD - 0 10/14/2013 8:41 AM PSTThe patient was seen with the resident and I confirmed the pertinent h istory. I confirmed pertinent physical exam findings, and agree with physical exam as documented. The indications for treatment were reviewed and I agree with the overall assessment and car e plan as documented. Any additional comments included below. Discontinue oxycodone, and not to be prescribed at discharge. Anastacia La Gordon Amador MD - 8:41 AM PST [facility] Vaginal Delivery Progress Note Delivery Date: 10/14/2013 Information for the patient's : Zohaib Yoo Boy [[id number]] Delivery Date: 10/13/2013 Delivery Time: 184 Baby: Baby Boy Dougion Sex: male Weight: 8 lb 14.7 oz (4046 g) Height: 20.5" Head circumference: APGARS One minute Five minutes Ten minutes Totals: 9 9 Delivery Type: spontaneous vaginal Subjective: No nursing concerns were reported and the patient expresses no concerns regarding: amoun t of bleeding perineal pain or other perineal concerns other pain [place] status: well, in room with mother [place] feeding issues: none, initiating well support services tech concerns: consult planned for living/ environment issues and h/o substa nce abuse, though patient has told me that she is well connected to area resources and famil y and friend support and declined additional resources and counseling throughout ca re. Objective: General: in NAD Exam limited by: none Vital signs: BP 105/56 | Pulse 78 | Temp 36.2 C (97.2 F) (Temporal) | Resp 18 | Ht 1.6 76 m (5' 6") | Wt 92.08 kg (203 lb) | BMI 32.76 kg/m2 | SpO2 97% | LMP 01/21/2013 | Breastfe eding? Unknown HEENT: grossly WNL CV: grossly WNL LUNGS: grossly WNL ABDOMEN (GENERAL): normal exam, nontender UTERINE FUNDUS fundus firm and non-tender Labs: Recent Results (from the past 24 hour(s)) RUPTURE OF MEMBRANES Component Value Range Amnisure, ROM Positive UA DIPSTICK ONLY Component Value Range POC GLUCOSE UA Negative Negative ng/dL POC BILIRUBIN UA Negative Negative mg/dL POC KETONES UA Negative Negative mg/dL POC SPECIFIC GRAVITY UA 1.005 1.001 - 1.030 POC PH UA 6.5 5 - 8 POC PROTEIN UA Negative Negative mg/dL POC UROBILINOGEN UA Negative POC NITRITE UA Negative Negative POC BLOOD UA 80 (*) Negative Benjamin/uL POC LEUKOCYTE ESTERASE UA Negative Negative Ella/uL CBC NO DIFFERENTIAL Component Value Range WBC 8.3 3.8 - 11.0 K/uL RBC 4.55 3.70 - 5.10 M/uL Hgb 14.2 11.3 - 15.5 g/dL Hct 42.4 34.0 - 46.0 % MCV 93.1 80.0 - 96.0 fL MCH 31.1 27.0 - 34.0 pg MCHC 33.4 32.0 - 35.5 g/dL RDW 13.8 11.0 - 15.5 % Platelet Count 224 150 - 400 K/uL MPV 8.6 7.4 - 10.3 fL DRUGS OF ABUSE, SCREEN, URINE Component Value Range THC 20 URINE Negative 0 - 20 ng/mL TOX COMMENT See Note Cocaine Negative 0 - 300 ng/mL Amphetamine Negative 0 - 1000 ng/mL Opiate Screen, Urine Negative 0 - 300 ng/mL Benzodiazepines, Urine, Screen Negative 0 - 200 ng/mL ALCOHOL, URINE Negative 0 - 50 Creatinine, Urine 14.90 (*) >=20.00 mg/dL pH, Urine 7.5 5.0 - 8.0 Imaging: No results found. ASSESSMENT: normal course PLAN: continue supportive care Pain: controlled with ibuprofen and minimal oxycodone. Feeding: well, consult. Immunization: MMR due to equivocal Contraception: Mirena, with depo bridge. Substance abuse, urine drug screen opiate positive: SW consult & close f/u. Minimize oxyco done. Dental infection & BV: continue amox and metronidazole (L2 safe in breast feeding per Mothe [facility] Milk). H/o asthma: has not required albuterol. Follow-up: 6 weeks Electronically signed: Gordon Rivero MD 10/14/2013 8:41 Anastacia Shea MD - 0 10/13/2013 6:25 PM PSTThe patient's medical care was reviewed during or immediately after th e visit by phone with the resident. The review included the patient's medical history and d iagnosis, the resident s findings on physical examination, and the treatment plan. I agree with the overall assessment and care plan as documented. Any additional comments included below. I presented to [facility] immediately after this phone update for the imminent delivery Anastacia La Hill March MD - 0 10/13/2013 6:25 PM PST [facility] ASSESSMENT: at 38w5d, single intrauterine . Labor Progress: Active phase, Augmentation of labor and FHR reassuring FHT Category 1 Complications: none PLAN: Cont current management, pitocin at 6 She feels urge to push and is complete Pain Control: epidural Anticipate SUBJECTIVE: Feels pressure and urge to push OBJECTIVE DATA / PHYSICAL EXAM: Filed Vitals: 10/13/13 1650 10/13/13 1705 10/13/13 1721 10/13/13 1735 BP: 117/59 126/81 122/71 131/64 Pulse: 78 81 71 81 Temp: TempSrc: Resp: 18 Height: Weight: SpO2: Intake/Output Summary (Last 24 hours) at 10/13/13 1825 Last data filed at 10/13/13 1520 Gross per 24 hour Intake 1000 ml Output 500 ml Net 500 ml MONITORING: Assessment: (10/13/2013 18:25): Recorded by: Continious doppler Baseline: 130 Variability: Moderate (6-25 bpm) Accelerations: 15X15 Decelerations: Absent Contractions: (10/13/2013 18:25): [place]: Relaxed between contractions Frequency:occurring every 3 minute(s) Strength: Moderate IUPC: N/A Sterile Vaginal Exam (Time: 1819) Dilatation: fully Effacement: 100% Station: +1 Cervix position: not felt Cervix consistency: N/A Electronically signed by: Hill Bang MD, 10/13/2013 Anastacia Shea MD - 0 10/13/2013 4:40 PM PSTThe patient's medical care was reviewed during or immediately by phone after the visit with the resident. The review included the patient's medical history and d iagnosis, the resident s findings on physical examination, and the treatment plan. I agree with the overall assessment and care plan as documented. Any additional comments included below. Anastacia La Hill March MD - 0 10/13/2013 4:40 PM PST [facility] ASSESSMENT: at 38w5d, single intrauterine . Labor Progress: Active phase, Adequate progress and FHR reassuring FHT Category 1 Complications: none PLAN: Cont current management, augmenting with pitocin, now at 6 with adequate contractions and c ervical change Pain Control: epidural Anticipate SUBJECTIVE: Much more comfortable now with epidural OBJECTIVE DATA / PHYSICAL EXAM: Filed Vitals: 10/13/13 1650 10/13/13 1705 10/13/13 1721 10/13/13 1735 BP: 117/59 126/81 122/71 131/64 Pulse: 78 81 71 81 Temp: TempSrc: Resp: 18 Height: Weight: SpO2: Intake/Output Summary (Last 24 hours) at 10/13/13 1818 Last data filed at 10/13/13 1520 Gross per 24 hour Intake 1000 ml Output 500 ml Net 500 ml MONITORING: Assessment: (10/13/2013 18:18): Recorded by: Continious doppler Baseline: 130 Variability: Moderate (6-25 bpm) Accelerations: 15X15 Decelerations: Absent Contractions: (10/13/2013 18:18): [place]: Relaxed between contractions Frequency:occurring every 3 minute(s) Strength: Moderate IUPC: N/A Sterile Vaginal Exam (Time: 1640) Dilatation: 6 Effacement: 70% Station: -1 Cervix position: posterior Cervix consistency: soft Electronically signed by: Hill Bang MD, 10/13/2013 Anastacia Shea MD - 0 10/13/2013 2:52 PM PSTThe patient's medical care was reviewed during or immediately after e visit by phone with the resident. The review included the patient's medical history and d iagnosis, the resident s findings on physical examination, and the treatment plan. I agree with the overall assessment and care plan as documented. Usring remote OBIX to review FHTs and progress. Any additional comments included below. Anastacia La Hill March MD - 0 10/13/2013 2:52 PM PST [facility] Resident Labor Progress Note ASSESSMENT: at 38w5d, single intrauterine . Labor Progress: Augmentation of labor, labor progressing well. Patient had rupture of fore bag with clear fluid, previous SROM at 0630 this AM FHT Category 1 Complications: none PLAN: Cont current management, pitocin now at 6, increasing by 1 every 30 minutes Pain Control: epidural prn Anticipate SUBJECTIVE: Complains of contraction pain, about 5/10 now. OBJECTIVE DATA / PHYSICAL EXAM: Filed Vitals: 10/13/13 0845 10/13/13 0849 10/13/13 1215 10/13/13 1451 BP: 114/58 131/73 Pulse: 110 96 80 81 Temp: 36 C (96.8 F) 36.6 C (97.9 F) TempSrc: Resp: 20 Height: Weight: SpO2: 97% Intake/Output Summary (Last 24 hours) at 10/13/13 1453 Last data filed at 10/13/13 1420 Gross per 24 hour Intake 350 ml Output 0 ml Net 350 ml MONITORING: Assessment: (10/13/2013 14:53): Recorded by: Continious doppler Baseline: 140 Variability: Moderate (6-25 bpm) Accelerations: 15X15 Decelerations: Absent Contractions: (10/13/2013 14:53): [place]: Relaxed between contractions Frequency:occurring every 3 minute(s) Strength: Moderate IUPC: N/A Sterile Vaginal Exam (Time: 1420) Dilatation: 4 Effacement: 60% Station: -3 Cervix position: posterior Cervix consistency: medium Electronically signed by: Hill Bang MD, 10/13/2013 Anastacia Shea MD - 0 10/13/2013 1:11 PM PSTThe patient's medical care was reviewed during or immediately after e visit by phone with the resident. The review included the patient's medical history and d iagnosis, the resident s findings on physical examination, and the treatment plan. I agree with the overall assessment and care plan as documented. Any additional comments included below. Anastacia La Margarita Fajardo DO - 10/13/2013 1:11 PM PST [facility] ASSESSMENT: at 38w5d, single intrauterine . Labor Progress: Latent phase FHT Category 1 Complications: smoker, drug use during early PLAN: Continue labor management. Start pit @1 to augment labor. Pain Control: epidural when in active labor Anticipate vaginal delivery SUBJECTIVE: No complaints but feeling increased discomfort with contractions OBJECTIVE DATA / PHYSICAL EXAM: Filed Vitals: 10/13/13 0844 10/13/13 0845 10/13/13 0849 10/13/13 1215 BP: 109/66 114/58 Pulse: 114 110 96 80 Temp: 36 C (96.8 F) TempSrc: Resp: 20 Height: 1.676 m (5' 6") Weight: 92.08 kg (203 lb) SpO2: 95% 97% No intake or output data in the 24 hours ending 10/13/13 1311 MONITORING: Assessment: (10/13/2013 13:11): Recorded by: Continious doppler Baseline: 135 Variability: Moderate (6-25 bpm) Accelerations: 15X15 Decelerations: Absent Contractions: (10/13/2013 13:11): [place]: Relaxed between contractions Frequency:occurring every 8 minute(s) Strength: Mild IUPC: N/A Sterile Vaginal Exam Since only moises every 8 minutes (not much of a change since admission, though more r egular) will avoid a cervical check because likely no change yet Electronically signed by: Margarita Lal DO, 10/13/2013 3 :00 PM Deanne Davis RN - 10/13/2013 11:13 AM PSTBack on monitor after walking. St [place] feeling a few uc;s while ambulatingElectronically signed by Deanne Bardales RN at 0 10/13/2013 11:16 AM Deanne Davis RN - 10/13/2013 10:36 AM PSTupto walkElectronical ly signed by Deanne Bardales RN at 10/13/2013 10:37 AM Deanne Davis RN - 09/15 10:17 AM PSTPlan of car discussed. Pt wanting to ambulate for a few hours before star ting possible pit. This plan agreed uponElectronically signed by Deanne Bardales RN at 0 10/13/2013 10:18 AM Deanne Davis RN - 10/13/2013 9:29 AM PSTFormatting of this no te might be different from the original. Pt arrived or transferred to Emergency? If yes do not do E/M leveling Answer if questions Resources - Interventions Area for additional documentation Available points Points given f or this visit Arrived by Ambulance - arrival prep Yes ? 1 Cervical check (SVE sterile vag exam) documented on doc-flow record each time Number of SVE documented? 1x 1 Doppler check- documented in Doc-flow record 2 Enema Administration documented in Doc-flow record 1 Extremity Pulses or DTRs documented in Doc-flow record Pulses or DTRs? 1 Monitoring setup and processing 1 1 monitoring review by second staff or provider documented in antepartum testing area 1 Intra hospital transfer/transport (not EC) What department? 2 Lab order/processing each time Number of lab episodes ordered? 1x 1 Specimen collection all types (UA, cultures etc) each time Number of specimens collec alan? 1x 1 Medication, PO, rectal, vaginal topical Given? 1 Pulse Oximetry, respiratory evaluation 1 Rectal/Pelvic/Perineal exam (debbie. sterile speculum) Which exam? 2 ROM Check (Amnisure) Obtained? 1 1 Ultrasound order/processing each time Number of ultrasounds orders processed? 1x Additional staff used (transport readiness/ precip del) Number of staff? 1 Discharge instructions simple (rare) Rescheduling NST documented in discharge instructi on section 1 Discharge instructions complex- Instructions given on home self care for - do cumented in discharge instruction section 2 Discharge AMA Time? 1 Emotional or uncooperative patient How? 1 Language barrier Pt. Language: 1 Consult-front desk agent/physician specialists/Psych- ordered - Consult type? 1 Fax-call prescriptions, hx supplies other institutions What type of fax: 1 demise emotional support/resources 2 OB Education documented in shift assessment in pt education sheet 1 Piercing removal: What piercing- 1 Reassessment after intervention or ambulation (meds given, labs ultrasound, shower) each ti me Type of intervention? 1x Repeat vital signs documented in doc flow record 1 Social service referral - ordered 2 Transport preparation to other hospital What hospital? 2 Incomplete nursing assessment (rapid del) 1 Complete nursing assessment. Documented in doc-flow report. 2 2 Total points: 7 Admit to Labor (time) Discharge home (time) E/M Level 1 1 3 points E/M Level 2 4-6 points E/M Level 3 7-9 points E/M Level 4 10-11 points E/M Level 5 12 + points Haley Davis RN - 10/13/2013 9:13 AM PSTLimited fluids po. Apple juice given to drink and large pin k jug of water. Goal to drink all fluids in 45 mins. Deanne Davis RN - 10/13/2013 8:51 AM PSTWoke up and had mod gush of what she thought was amniotic fluid. Has continued to leak since then . No complications during . Fetus not as active this am. Acoustic stim performed x 1. Positive accel and audible movement heard documented in this encounter Plan of Treatment + + +--------+ + + | Name | Type | Priori | Associated Diagnoses | Date/Time | | | | ty | | | + + +--------+ + + | Extra Blood Bank | Blood Bank | STAT | | 10/13/2013 10:30 AM | | Tube | | | | PST | + + +--------+ + + + + +--------+ + + | Name | Type | Priori | Associated Diagnoses | Order Schedule | | | | ty | | | + + +--------+ + + | Amb referral to | Outpatient | Routin | Supervision of | 1 Occurrences | | | Referral | e | other normal | starting 10/13/2013 | | | | | | until 10/13/2014 | + + +--------+ + + | Ambulatory referral | Outpatient | Routin | Supervision of | 1 Occurrences | | to | Referral | e | other normal | starting 10/13/2013 | | | | | | until 10/13/2014 | + + +--------+ + + documented as of this encounter Procedures + +--------+ + + + | Procedure Name | Priori | Date/Time | Associated Diagnosis | Comments | | | ty | | | | + +--------+ + + + | DRUGS OF ABUSE, | STAT | 10/13/2013 | | Results for this | | SCREEN, URINE | | 11:20 AM | | procedure are in the | | | | PST | | results section. | + +--------+ + + + | CBC NO DIFFERENTIAL | STAT | 10/13/2013 | | Results for this | | | | 10:30 AM | | procedure are in the | | | | PST | | results section. | + +--------+ + + + | UA DIPSTICK ONLY | Routin | 10/13/2013 | | Results for this | | | e | 9:03 AM | | procedure are in the | | | | PST | | results section. | + +--------+ + + + | RUPTURE OF MEMBRANES | STAT | 10/13/2013 | | Results for this | | | | 9:00 AM | | procedure are in the | | | | PST | | results section. | + +--------+ + + + | CULTURE, STREP GROUP | Routin | 09/13/2013 | | Results for this | | B | e | | | procedure are in the | | | | | | results section. | + +--------+ + + + | ANTIBODY SCREEN | Routin | 07/30/2013 | | Results for this | | | e | | | procedure are in the | | | | | | results section. | + +--------+ + + + documented in this encounter Results Drugs of Abuse, Screen, Urine (10/13/2013 11:20 AM PST) + + + + + [...] + + + + | Creatinine, | 14.90 (L) | >=20.00 mg/dL | [facility] | | | Urine | | | [facility] | | | | | | [facility] | | | | | | LABORATORY | | + + + + + + | pH, Urine | 7.5 | 5.0 - 8.0 | [facility] | | | | | | ST [...] + + | [facility] | [address] | [place] [address] | [phone] | | [facility] | | | | | LAB[facility]ATORY | | | | + + + + + CBC no Differential (10/13/2013 10:30 AM PST) + +-------+ + + + | Component | Value | Ref Range | Performed | Pathologist | | | | | At | Signature | + +-------+ + + + | WBC | 8.3 | 3.8 - 11.0 K/uL | [facility] | | | | | | [facility] | | | | | | [facility] | | | | | | LABORATORY | | + +-------+ + + + | RBC | 4.55 | 3.70 - 5.10 | [facility] | | | | | M/uL | [facility] | | | | | | [facility]ORE | | | | | | LABORATORY | | + +-------+ + + + | Hemoglobin | 14.2 | 11.3 - 15.5 | [facility] | | | | | g/dL | [facility] | | | | | | [facility] | | | | | | LABORATORY | | + +-------+ + + + | Hematocrit | 42.4 | 34.0 - 46.0 % | [facility] | | | | | | [facility] | | | | | | [facility] | | | | | | LABORATORY | | + +-------+ + + + | MCV | 93.1 | 80.0 - 96.0 fL | [facility] | | | | | | [facility] | | | | | | [facility] | | | | | | LABORATORY | | + +-------+ + + + | MCH | 31.1 | 27.0 - 34.0 pg | [facility] | | | | | | [facility] | | | | | | [facility] | | | | | | LABORATORY | | + +-------+ + + + | MCHC | 33.4 | 32.0 - 35.5 | [facility] | | | | | g/dL | [facility] | | | | | | CORE | | | | | | LABORATORY | | + +-------+ + + + | RDW-CV | 13.8 | 11.0 - 15.5 % | [facility] | | | | | | [facility] | | | | | | [facility] | | | | | | LABORATORY | | + +-------+ + + + | Platelet | 224 | 150 - 400 K/uL | [facility] | | | Count | | | [facility] | | | | | | [facility]ORE | | | | | | LABORATORY | | + +-------+ + + + | MPV | 8.6 | 7.4 - 10.3 fL | [facility] | | | | | | [facility] | | | | | | [facility] | | | | | | LABORATORY | | + +-------+ + + + + + | Specimen | + + | Blood specimen | | (specimen) | + + + + + + + | Performing | Address | City/State/Zipcode | Phone Number | | Organization | | | | + + + + + | [facility] | [address] | [place] [address] | [phone] | | [facility] | | | | | [facility]AT[facility] | | | | + + + + + UA dipstick only (10/13/2013 9:03 AM PST) + + + + + + | Component | Value | Ref Range | Performed | Pathologist | | | | | At | Signature | + + + + + + | Glucose, | Negative | Negative ng/dL | [facility] | | | UA, POC | | | [facility] | | | | | | [facility] | | | | | | LAB[facility]ATORY | | + + + + + + | Bilirubin, | Negative | Negative mg/dL | [facility] | | | UA, POC | | | [facility] | | | | | | [facility] | | | | | | LABORATORY | | + + + + + + | Ketones, | Negative | Negative mg/dL | [facility] | | | UA, POC | | | [facility] | | | | | | [facility]ORE | | | | | | LABORATORY | | + + + + + + | Specific | 1.005 | 1.001 - 1.030 | [facility] | | | [place], | | | [facility] | | | UA, POC | | | CORE | | | | | | LABORATORY | | + + + + + + | pH, UA, POC | 6.5 | 5 - 8 | [facility] | | | | | | [facility] | | | | | | [facility] | | | | | | LABORATORY | | + + + + + + | Protein, | Negative | Negative mg/dL | [facility] | | | UA, POC | | | [facility] | | | | | | [facility]ORE | | | | | | LABORATORY | | + + + + + + | Urobilinoge | Negative | mg/dL | [facility] | | | n, UA, POC | | | [facility] | | | | | | [facility]ORE | | | | | | LABORATORY | | + + + + + + | Nitrite, | Negative | Negative | [facility] | | | UA, POC | | | [facility] | | | | | | [facility] | | | | | | LABORATORY | | + + + + + + | Blood, UA, | 80 (A) | Negative Benjamin/uL | [facility] | | | POC | | | [facility] | | | | | | [facility]ORE | | | | | | LABORATORY | | + + + + + + | Leukocyte | Negative | Negative Ella/uL | [facility] | | | Esterase, | | | [facility] | | | UA, POC | | | CORE | | | | | | LABORATORY | | + + + + + + + + | Specimen | + + | Urine specimen | | (specimen) | + + + + + + + | Performing | Address | City/State/Zipcode | Phone Number | | Organization | | | | + + + + + | [facility] | [address] | [place] [address] | [phone] | | [facility] | | | | | LAB[facility]ATORY | | | | + + + + + Rupture of Membranes (10/13/2013 9:00 AM PST) + + + + + + | Component | Value | Ref Range | Performed | Pathologist | | | | | At | Signature | + + + + + + | Amnisure, | PositiveComment: | | [facility] | | | ROM | Positive when amniotic | | [facility] | | | | fluid present | | [facility]ORE | | | |Positive when amniotic fluid present | | LABORATORY | | + + + + + + + + | Specimen | + + | Body fluid sample | | (specimen) - | | Amniotic | + + + + + + + | Performing | Address | City/State/Zipcode | Phone Number | | Organization | | | | + + + + + | [facility] | [address] | [place] [address] | [phone] | | [facility] | | | | | LABORATORY | | | | + + + + + Culture,Strep Group B (09/13/2013) + + + + + + | Component | Value | Ref Range | Performed | Pathologist | | | | | At | Signature | + + + + + + | GBS result, | Negative | Negative | | | | External | | | | | + + + + + + + + | Specimen | + + | Specimen from | | genital system | | (specimen) - | | Vagina/Rectum | + + Antibody Screen (07/30/2013) + + + + + + | Component | Value | Ref Range | Performed | Pathologist | | | | | At | Signature | + + + + + + | Antibody | Negative | Negative | | | | Screen, | | | | | | External | | | | | + + + + + + + + | Specimen | + + | Blood specimen | | (specimen) | + + documented in this encounter Visit Diagnoses + + | Diagnosis | + + | Asthma - Primary Unspecified asthma | + + | Dental infection Acute apical periodontitis of pulpal origin | + + | BV (bacterial vaginosis) Vaginitis and vulvovaginitis, unspecified | + + | Supervision of other normal | + + | Polysubstance abuse (HCC) Other, mixed, or unspecified nondependent drug abuse, | | unspecified | + + | Supervision of other normal | + + | abnormality in Unspecified abnormality affecting management of | | mother, unspecified as to episode of care | + + | Contraception management Unspecified contraceptive management | + + documented in this encounter Administered Medications + +--------+ +--------+------+------+ | Medication Order | MAR | Action | Dose | Rate | Site | | | Action | Date | | | | + +--------+ +--------+------+------+ | acetaminophen (TYLENOL) tablet | Given | 10/14/19 | 650 mg | | | | 325-650 mg 325-650 mg, Oral, | | 14 1:43 | | | | | EVERY 4 HOURS PRN, Mild Pain, | | PM PST | | | | | Starting Wed10/13/13 at 2053, | | | | | | | | | | | | | + +--------+ +--------+------+------+ +---+---+ | | | +---+---+ + +-------+ +--------+---+---+ | amoxicillin (AMOXIL) capsule | Given | 10/15/19 | 500 mg | | | | 500 mg 500 mg, Oral, 3 TIMES | | 14 9:15 | | | | | DAILY, First dose on Wed10/13/13 | | AM PST | | | | | at 2130 | | | | | | + +-------+ +--------+---+---+ +-------+ +--------+---+---+ | Given | 10/14/19 | 500 mg | | | | | 14 7:43 | | | | | | PM PST | | | | +-------+ +--------+---+---+ | Given | 10/14/19 | 500 mg | | | | | 14 1:43 | | | | | | PM PST | | | | +-------+ +--------+---+---+ +---+---+ | | | +---+---+ + +-------+ +--------+---+---+ | docusate sodium (COLACE) | Given | 10/14/19 | 200 mg | | | | capsule 200 mg 200 mg, Oral, | | 14 7:43 | | | | | NIGHTLY, First dose on Fri | | PM PST | | | | | 10/13/13 at 2130, Hold for loose | | | | | | | stools, | | | | | | + +-------+ +--------+---+---+ +-------+ +--------+---+---+ | Given | 10/13/19 | 200 mg | | | | | 14 10:00 | | | | | | PM PST | | | | +-------+ +--------+---+---+ +---+---+ | | | +---+---+ + +-------+ +--------+---+---+ | ibuprofen (ADVIL, MOTRIN) | Given | 10/15/19 | 800 mg | | | | tablet 800 mg 800 mg, Oral, | | 14 4:18 | | | | | EVERY 8 HOURS PRN, Mild Pain, | | AM PST | | | | | Starting 10/13/13 at 2053, | | | | | | | Give with food., | | | | | | + +-------+ +--------+---+---+ +-------+ +--------+---+---+ | Given | 10/14/19 | 800 mg | | | | | 14 4:28 | | | | | | PM PST | | | | +-------+ +--------+---+---+ | Given | 10/14/19 | 800 mg | | | | | 14 8:02 | | | | | | AM PST | | | | +-------+ +--------+---+---+ +---+---+ | | | +---+---+ + +---------+ +--------+-------+---+ | lactated ringers (LR) infusion | New Bag | 10/13/19 | 1,000 | 125 | | | at 125 mL/hr, Intravenous, | | 14 3:22 | mLs | mL/hr | | | CONTINUOUS, Starting Wed10/13/13 | | PM PST | | | | | at 1000, Bolus per clinical | | | | | | | indication, Labor and Delivery | | | | | | + +---------+ +--------+-------+---+ +---------+ +--------+-------+---+ | New Bag | 10/13/19 | 1,000 | 125 | | | | 14 12:21 | mLs | mL/hr | | | | PM PST | | | | +---------+ +--------+-------+---+ +---+---+ | | | +---+---+ + +-------+ +---------+---+---+ | lactobacillus GG (CULTURELLE) | Given | 10/15/19 | 1 | | | | capsule 1 capsule 1 capsule, | | 14 9:18 | capsule | | | | Oral, 2 TIMES DAILY, First dose | | AM PST | | | | | on Wed10/13/13 at 2130, May open | | | | | | | capsule, but do not add to warm | | | | | | | or hot food or beverages., | | | | | | + +-------+ +---------+---+---+ +-------+ +---------+---+---+ | Given | 10/14/19 | 1 | | | | | 14 4:28 | capsule | | | | | PM PST | | | | +-------+ +---------+---+---+ | Given | 10/14/19 | 1 | | | | | 14 4:18 | capsule | | | | | AM PST | | | | +-------+ +---------+---+---+ +---+---+ | | | +---+---+ + +-------+ +---------+---+ + | bhwawrq-vakhg-ayaddat (M-M-R | Given | 10/15/19 | 0.5 mLs | | Arm-Left | | II) vaccine injection 0.5 mL 0.5 | | 14 9:20 | | | Upper | | mL, Subcutaneous, ONE TIME | | AM PST | | | | | VACCINE, 10/13/13 at 2130, For | | | | | | | 1 dose, Administer prior to | | | | | | | discharge if titer | | | | | | | non-immune and patient agrees | | | | | | | (notify physician if patient | | | | | | | refuses). Nurse to discontinue if | | | | | | | not indicated., | | | | | | + +-------+ +---------+---+ + +---+---+ | | | +---+---+ + +-------+ +--------+---+ + | medroxyPROGESTERone | Given | 10/15/19 | 150 mg | | Glut-Lef | | (DEPO-PROVERA) 150 mg/mL | | 14 9:24 | | | t | | injection 150 mg 150 mg, | | AM PST | | | | | Intramuscular, ONCE, 10/15/13 | | | | | | | at 0800, For 1 dose | | | | | | + +-------+ +--------+---+ + +---+---+ | | | +---+---+ + +-------+ +--------+---+---+ | metroNIDAZOLE (FLAGYL) tablet | Given | 10/15/19 | 500 mg | | | | 500 mg 500 mg, Oral, EVERY 12 | | 14 9:15 | | | | | HOURS (2 times per day), First | | AM PST | | | | | dose on Wed10/13/13 at 2130 | | | | | | + +-------+ +--------+---+---+ +-------+ +--------+---+---+ | Given | 10/14/19 | 500 mg | | | | | 14 7:47 | | | | | | PM PST | | | | +-------+ +--------+---+---+ | Given | 10/14/19 | 500 mg | | | | | 14 8:03 | | | | | | AM PST | | | | +-------+ +--------+---+---+ +---+---+ | | | +---+---+ + +---------+ +---------+---+ + | nicotine (NICODERM) 7 mg/24 hr | Patch | 10/15/19 | 1 patch | | Back-Lef | | 1 patch 1 patch, Transdermal, | Applied | 14 9:23 | | | t Upper | | DAILY, First dose on Wed10/14/13 | | AM PST | | | | | at 0945 | | | | | | + +---------+ +---------+---+ + + + +---------+---+ + | Patch Applied | 10/14/19 | 1 patch | | Back-Lef | | | 14 7:43 | | | t Upper | | | PM PST | | | | + + +---------+---+ + +---+---+ | | | +---+---+ + +-------+ +-------+---+---+ | oxyCODONE (ROXICODONE) tablet | Given | 10/14/19 | 10 mg | | | | 5-15 mg 5-15 mg, Oral, EVERY 4 | | 14 8:03 | | | | | HOURS PRN, Pain, Starting Fri | | AM PST | | | | | 10/13/13 at 3, | | | | | | + +-------+ +-------+---+---+ +-------+ +-------+---+---+ | Given | 10/14/19 | 10 mg | | | | | 14 1:49 | | | | | | AM PST | | | | +-------+ +-------+---+---+ +---+---+ | | | +---+---+ + + + + +---------+---+ | oxytocin in saline (PITOCIN) 30 | Rate/Dos | 10/13/19 | 6 | 6 mL/hr | | | units/500 mL (60 beata-units/mL) | e Change | 14 2:17 | beata-un | | | | infusion 0-999 beata-units/min | | PM PST | its/min | | | | (rounded to 0-999 mL/hr), at | | | | | | | 0-999 mL/hr, Intravenous, | | | | | | | TITRATED, Starting 10/13/13 at | | | | | | | 1000, Low Dose (Cervical | | | | | | | Ripening) Protocol: Dose 1-4 | | | | | | | mU/min. Begin infusion at 1 | | | | | | | mU/min for 60 minutes, Increase | | | | | | | to 2 mU/min for 60 minutes, | | | | | | | Increase to 4 mU/min and continue | | | | | | | at this level until Solis score | | | | | | | of 7 or more. Maximum dose for | | | | | | | cervical ripening = 4mU/min. | | | | | | | Standard (Augmentation/Induction) | | | | | | | Protocol: Dose 0-40 mU/min. | | | | | | | Begin infusion at 1-2 mU/minute. | | | | | | | Increase at no greater than 2 | | | | | | | mU/min every 30 minutes, until | | | | | | | adequate labor. Maximum standard | | | | | | | dose for augmentation/induction | | | | | | | = 20 mU/min. Call provider to | | | | | | | increase above 20 mU/min. Do not | | | | | | | increase above 40 mU/min. Do | | | | | | | not increase rate if there is | | | | | | | tachysystole ( > 5 contractions | | | | | | | in 10 minutes averaged over 30 | | | | | | | minutes) or concern regarding | | | | | | | tracing. For tachysystole, | | | | | | | indications or increased | | | | | | | baseline uterine tone, notify | | | | | | | provider and stop or decrease | | | | | | | oxytocin infusion per unit policy | | | | | | | until the indication has ceased. | | | | | | | Restart the infusion per policy | | | | | | | or at 50% or less of the previous | | | | | | | rate. Third Stage | | | | | | | Management/Immediate : | | | | | | | Dose 0-999 mU/min. After delivery | | | | | | | of anterior shoulder or | | | | | | | placenta, titrate to control | | | | | | | bleeding. May discontinue if | | | | | | | fundus firm, bladder not | | | | | | | distended and patient tolerating | | | | | | | oral fluids and pain meds. , | | | | | | | Labor and Delivery | | | | | | + + + + +---------+---+ + + + +---------+---+ | Rate/Dose Change | 10/13/19 | 5 | 5 mL/hr | | | | 14 1:44 | beata-un | | | | | PM PST | its/min | | | + + + +---------+---+ | Rate/Dose Change | 10/13/19 | 3 | 3 mL/hr | | | | 14 1:07 | beata-un | | | | | PM PST | its/min | | | + + + +---------+---+ +---+---+ | | | +---+---+ documented in this encounter
--- OUTSIDE RECORDS SUMMARY | ~2019-09-20 | XMS | Encounter Summary ---
Demographics + + + | Address | [address] | | | [place] [address] | + + + | Home Phone | | + + + | Preferred Language | Unknown | + + + | Marital Status | Single | + + + | Muslim Affiliation | 1013 | + + + | Race | Unknown | + + + | Ethnic Group | Unknown | + + + Author + + + | Author | [facility] | | | and [place] | + + + | Organization | [facility] | | | [...] Team Providers + +------+ + | Care Investment Consultant Name | Role | Phone | + +------+ + | Meet Small MD | PCP | | + +------+ + Reason for Visit + + + | Reason | Comments | + + + | Medication Orders | control | + + + Encounter Details +--------+ + + + + | Date | Type | Department | Care Team | Description | +--------+ + + + + | 06/21/ | Telephone | [facility] | Debby Rasheed, | Medication Orders | | 2013 | | [facility] | GEOM[employer] T[employer]OR | ( control ) | | | | [facility] [address] | | | | | | [address] | | | | | | [place] | | | | | | [address] | | | | | | [phone] | | | +--------+ + + + [...]
--- OUTSIDE RECORDS SUMMARY | ~2019-09-20 | XMS | Encounter Summary ---
Demographics + + + | Address | [address] | | | [place] [address] | + + + | Home Phone | | + + + | Preferred Language | Unknown | + + + | Marital Status | Single | + + + | Hoahaoism Affiliation | 1013 | + + + | Race | Unknown | + + + | Ethnic Group | Unknown | + + + Author + + + | Author | [facility] | | | and [place] | + + + | Organization | [facility] | | | [...] Team Providers + +------+ + | Care Teacher Aide Clerical Name | Role | Phone | + +------+ + | Gordon Rivero MD | PCP | | + +------+ + Reason for Visit + + + | Reason | Comments | + + + | Routine | 31+3. | | Visit | | + + + Encounter Details +--------+ + + + + | Date | Type | Department | Care Team | Description | +--------+ + + + + | 08/29/ | Routine | [facility] | Gordon Rivero MD | GA: 32w2d | | 2012 | | [facility] | [address] | | | | | [address] | [place] [address] | | | | | [place] | [phone] | | | | | [place] | | | | | | [address] | | | | | | [phone] | | | +--------+ + + + [...] + + + | Blood Pressure | 100/64 | 08/29/2013 1:57 PM | | | | | PST | | + + + + + | Pulse | - | - | | + + + + + | Temperature | 36.6 C (97.8 F) | 08/29/2013 1:57 PM | | | | | PST [...] + + + + | Weight | 86.6 kg (191 lb) | 08/29/2013 1:57 PM | | | | | PST | | + + + + + | Height | - | - | | + + + + + | Body Mass Index | 30.6 | 07/20/2013 10:48 AM | | | | | PST | | + + + + + documented in this encounter Patient Instructions Patient Instructions Kalli Anglin CMA - 08/29/2013 1:59 PM PST Thank you for your recent visit. You may receive a survey in the mail, by returning the gonzales vey your input will help us improve. Thank you documented in this encounter Progress Notes Anastacia La MD - 08/29/2013 2:48 PM PST Janie Butcher is a 28 y.o . A POS female being seen today for her obstetrical visit by Gordon Riveor MD . She is at 31w3d weeks gestation. Patient reports heartburn. movement: normal. Patient's last menstrual period was 01/21/2013.. SAMMY is 10/28/2013, by Last Menstrual Period - this is one week off from 27 week US. If she has any uncertainty about her LMP, I would suggest using US dating - if she feels quite cert ain about LMP, then ok to keep that dating. 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 Consider pneumovax Needs Tdap Raniditine for heartburn ok Amox for dental infection ok Repeat Hep C, HIV (possibly hep b) screen at 36 weeks given high risk exposure. FU on Wednesday for immunizations, and no later than 2 wks from now. Will get 1 hr GTT as well . Gordon Amador MD - 2:07 PM PST28 y.o. A POS @ 31w3d by approximate LMP c/w 29wk US, here for routine OB visit. Good movement, no vaginal irritation or bleeding, no dysuria, no constipation. Having daily heartburn for several days. Reports: -- Dentist gave Rx for Amox for dental abscess, but delayed pickup until today due to insur ance issue. -- Saw MFM in [place] where they recommended f/u cardiac US at [facility] and f/u fet al brain MRI. Might consider shunt for hydrocephalus. She has f/u with MFM . -- No substance abuse, in supportive social environment. Financially stable on TANF, WIC, [employer], [employer] & living with friend. -- Smoking down to 1 cig/d. Fundal height, FHT, and vital signs are appropriate. Afebrile. Right lower jaw broken nathaniel th/crowns & mild erythema & edema without drainage. -- cerebral ventriculomegally: Requested [facility] records to confirm delivery and f/u plan . -- Dental abscess: does not look terrible; start amox as planned and f/u broken teeth postp artum as planned. -- Substance abuse: repeat UDScreen. -- Social: [facility] referral appears not to have been done, will d/w RBK. -- weight gain (23# already): goal 25#, advised watch diet. -- smoking cessation encouraged. -- OGTT & HCV & H&H & tdap @ f/u [facility] visit this week (per pt preference to wait due to WIC a pt soon). -- Change dates to 3rd trimester US due to LMP is approximate. -- Request records from former PCP for transfer of care (now living in [place]: Adelita THOMSON @ [facility]. -- ranitidine for heartburn. F/u 2 weeks for results & MFM plan. documented in this enco unter Plan of Treatment + +------+--------+ + + | Name | Type | Priori | Associated Diagnoses | Order Schedule | | | | ty | | | + +------+--------+ + + | Toxicology Screen | Lab | Routin | Supervision of | Expected: | | | | e | other normal | 08/29/2013, Expires: | | | | | | 08/29/2014 | | | | | Polysubstance abuse | | + +------+--------+ + + documented as of this encounter Results Hemoglobin and Hematocrit (09/18/2013 10:40 AM PST) + +-------+ + + + | Component | Value | Ref Range | Performed | Pathologist | | | | | At | Signature | + +-------+ + + + | Hemoglobin | 12.6 | 11.3 - 15.5 | [facility] | | | | | g/dL | [facility] | | | | | | [facility] | | | | | | LABORATORY | | + +-------+ + + + | Hematocrit | 36.2 | 34.0 - 46.0 % | [facility] [...] + + | [facility] | [address] | [place] [address] | [phone] | | [facility] | | | | | LAB[facility]ATORY | | | | + + + + + Hepatitis C Ab (09/18/2013 10:40 AM PST) + + + + + + | Component | Value | Ref Range | Performed | Pathologist | | | | | At | Signature | + + + + + + | HCV Ab | Non Reactive | Non Reactive | [facility] | | | | | [facility] | | | | | | [facility] | | | | | | LABORATORY | | + + + + + + | Hepatitis C | Absence of antibody | | [facility] | | | Ab | suggests no past | | [facility] | | | Interpretat | Hepatitis C infection. | | CORE | | | ion | Since antibody | | LABORATORY | | | | development may be | | | | | | delayed up to 6 months | | | | | | after infection, | | | | | | retesting may be | | | | | | indicated. | | | | + + + + + + + + | Specimen | + + | Blood specimen | | (specimen) | + + + + + + + | Performing | Address | City/State/Zipcode | Phone Number | | Organization | | | | + + + + + | [facility] | [address] | [place] [address] | [phone] | | [facility] | | | | | LAB[facility]ATORY | | | | + + + + + Gestational Glucose Test, 1Hr (09/18/2013 10:40 AM PST) + +-------+ + + + | Component | Value | Ref Range | Performed | Pathologist | | | | | At | Signature | + +-------+ + + + | Glucose, | 85 | 65 - 130 mg/dL | [facility] | | | GTT 1HR | | | [facility] | | | Preg | | | CORE | | | | | | LABORATORY | | + +-------+ + + + + + | Specimen | + + | Blood specimen | | (specimen) | + + + + + | Narrative | Performed At | + + + | GTT drawn at 1 hour 7 minutes. 09/18/2013 10:42 saba | [facility] | | | [facility] | | | LAB[facility]ATORY | + + + + + + + + | Performing | Address | City/State/Zipcode | Phone Number | | Organization | | | | + + + + + | [facility] | [address] | [place] [address] | [phone] | | [facility] | | | | | LABORATORY | | | | + + + + + documented in this encounter Visit Diagnoses + + | Diagnosis | + + | Supervision of other normal - Primary | + + | BV (bacterial vaginosis) Vaginitis and vulvovaginitis, unspecified | + + | Polysubstance abuse (HCC) Other, mixed, or unspecified nondependent drug abuse, | | unspecified | + + | Heartburn in Other specified complication of , unspecified as to | | episode of care | + + documented in this encounter"
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
--- OUTSIDE RECORDS SUMMARY | ~2019-09-20 | XMS | Encounter Summary ---
Demographics + + + | Address | [address] | | | [place] [address] | + + + | Home Phone | | + + + | Preferred Language | Unknown | + + + | Marital Status | Single | + + + | Orthodoxy Affiliation | 1013 | + + + | Race | Unknown | + + + | Ethnic Group | Unknown | + + + Author + + + | Author | [facility] | | | and Jeffana | + + + | Organization | [facility] | | | [...] Team Providers + +------+ + | Care Field Reporter Name | Role | Phone | + +------+ + | Camelia Alvarenga MD | PCP | | + +------+ + Encounter Details +--------+ + + + + | Date | Type | Department | Care Team | Description | +--------+ + + + + | 09/17/ | Abstract | [facility] | Camelia Alvarenga, | Depression; | | 2011 | | Group [facility] | Retired | Anxiety; | | | | Family Medicine | | Eczema; | | | | [address] [facility] | | Bladder infection; | | | | - [address] | | Insomnia | | | | [place], [place] | | | | | | [address] | | | | | | [phone] | | | +--------+ + + + [...]
--- OUTSIDE RECORDS SUMMARY | ~2019-09-20 | XMS | Encounter Summary ---
Demographics + + + | Address | [address] | | | [place] [address] | + + + | Home Phone | | + + + | Preferred Language | Unknown | + + + | Marital Status | Single | + + + | Episcopalian Affiliation | 1013 | + + + | Race | Unknown | + + + | Ethnic Group | Unknown | + + + Author + + + | Author | [facility] | | | and Jeffana | + + + | Organization | [facility] | | [...] Team Providers + +------+ + | Care Associate Software Engineer Name | Role | Phone | + +------+ + | Aditya Rivero MD | PCP | | + +------+ + Reason for Referral Evaluate & Treat (Urgent) +--------+ + + + + + | Status | Reason | Specialty | Diagnoses / | Referred By | Referred To | | | | | Procedures | Contact | Contact | +--------+ + + + + + | Closed | Specialty | Perinatology | Diagnoses | Doran, | | | | Services | | Abnormality | Alexanderjeanette | | | | Required | | of fetus | [address] | | | | | | abnormality | [place] | | | | | | in | [address] | | | | | | | Phone: | | | | | | | [phone] | | | | | | | Fax: | | | | | | | [phone] | | +--------+ + + + + + Encounter Details +--------+ + + + + | Date | Type | Department | Care Team | Description | +--------+ + + + + | 08/02/ | Orders Only | [facility] | Tiffany Gtz, | Abnormality of fetus | | 2013 | | [address] [facility] | [address] | (Primary Dx); | | | | [address] | [place], [place] | abnormality in | | | | [address] | [address] | | | | | [place], [place] | | | | | | [address] | | | | | | [phone] | | | +--------+ + + + [...] documented as of this encounter Progress Notes Aditya Rivero MD - 08/11/2013 1:53 PM PSTPer d/w aditya Morales advise perinatology eval uation. D/w patient by phone (had planned to d/w her 08/07 but she cancelled that appt): reassuranc e provided & advised f/u with perinatology; expect referral phone call early next week. Msg left for referrals desk to call me, and 2nd referral for perinatology placed.Electronic ally signed by Aditya Rivero MD at 08/11/2013 2:26 PM Aditya Amador MD - 08/10/2013 1: 32 PM PSTMild cerebral ventriculomegaly 10.5mm (>10mm) and cisterna magna prominence, with o therwise normal survey. Per review of UpToDate, DDx and prognosis is variable includi ng genetic syndromes, infections, neural tube defects; initial workup includes FHx of geneti c neuro d/o and Hx of exposure to CMV & Toxo and detailed US (+/- MRI) for brain and s urvey to narrow DDx; f/u US for progression; for most conditions management is co nservative though elective amniocentesis for karyotype and microbe PCR or termination can be offered. A: again, borderline ventriculomegaly. Perinatology referral to TRA still pending. P: will d/w patient likely insignificance of this finding and decide with her whether to pu rsue perinatology referral or repeat US for progression in several weeks.Electronically sign ed by Aditya Rivero MD at 08/11/2013 2:25 PM Kalli Finch CMA - 08/02/2013 11:22 AM PSTResults received on US done at [facility]. Results placed in Dr. Rivero green folder.Elect ronically signed by Kalli Anglin CMA at 08/02/2013 11:22 AM Tiffany Lezama MD - 08/02/2013 8:57 [facility] AM for abnormal US on 07/24/13, but no order p laced. US-enlarged lateral ventricle. US ordered.Electronically signed by Tiffany Gtz MD at 1 10/02/2012 8:59 AM PSTdocumented in this encounter Plan of Treatment + +---------+--------+ + + | Name | Type | Priori | Associated Diagnoses | Order Schedule | | | | ty | | | + +---------+--------+ + + | US OB Detail | Imaging | Routin | Abnormality of | Expected: | | Vandana Sngl or First | | e | fetus | 08/02/2013, Expires: | | | | | abnormality in | 08/02/2014 | | | | | | | + +---------+--------+ + + + + +--------+ + + | Name | Type | Priori | Associated Diagnoses | Order Schedule | | | | ty | | | + + +--------+ + + | Ambulatory referral | Outpatient | Routin | Abnormality of | 1 Occurrences | | to Perinatology | Referral | e | fetus | starting 08/11/2013 | | | | | abnormality in | until 08/11/2014 | | | | | | | + + +--------+ + + documented as of this encounter Visit Diagnoses + + | Diagnosis | + + | 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
--- OUTSIDE RECORDS SUMMARY | ~2019-09-20 | XMS | Encounter Summary ---
Demographics + + + | Address | [address] | | | [place] [address] | + + + | Home Phone | | + + + | Preferred Language | Unknown | + + + | Marital Status | Single | + + + | Gnosticism Affiliation | 1013 | + + + [...] Team Providers + +------+ + | Care Packing Machine Feeder Name | Role | Phone | + +------+ + | Meet Small MD | PCP | | + +------+ + Encounter Details +--------+ + + + + | Date | Type | Department | Care Team | Description | +--------+ + + + + | 05/16/ | Hospital | [facility] | Tiffany Gtz, | | | 2013 | Encounter | [facility] | MD [address] [place] [address] | | | | | CLINICAL LAB SERVS | [place], [place] | | | | | [address] | [address] | | | | | [place], [place] | | | | | | [address] | | | | | | [phone] | | | +--------+ + + + [...] DNA probe | [address] [place] | | CORE | | | | [place] [address] | | LABORATORY | | + + [...] [address] | [place] [address] | [phone] | | [facility] | | | [...] | | | | | | by [facility] [employer]. | | | | | | [...] by | | | | | | [facility] [address] | | | | | | [place] [address] | | | | + + + + + + + + | Specimen | + + | Specimen from | | genital system | | (specimen) | + + + + + + + | Performing | Address | City/State/Zipcode | Phone Number | | Organization | | | | + + + + + | [facility] | [address] | [place] [address] | [phone] | | [facility] | | | | | LABORATORY | | | | + + + + + documented in this encounter Visit Diagnoses Not on filedocumented in this encounter"
--- OUTSIDE RECORDS SUMMARY | ~2019-09-20 | XMS | Encounter Summary ---
Demographics + + + | Address | [address] | | | [place] [address] | + + + | Home Phone [...] Team Providers + +------+ + | Care Interior Design Consultant Name | Role | Phone | [...] | | | | CPT Code: | [place], [place] | [address] | | | | | [address] | [address] | [place], [place] | | | | | Initial | Phone: | [address] Phone: | | | | | Evaluation | [phone] | [phone] | | | | | for | Fax: | Fax: | | | | | Behavioral | [phone] | [phone] | | | | | Health | [...] + + | 05/16/ | Office | [facility] | Lin Reyes, DO | Well woman exam | | 2013 | Visit | [facility] [address] [facility] | [address] | (Primary Dx); | | | | [address] | [place] [address] | Dysuria; Family | | | | [address] | [phone] | planning; | | | | [place], [place] | | Contraception | | | | [address] | | management; | | | | [phone] | | Depression; Anxiety | +--------+---------+ + [...] eat for 3 days in a row 4110-1950 Rosa Maria NavarreteLc, [address] [place] [address], [place] [address]. All rights reserve d. This information is [...] | | 29Date of : 1985 CASE: [id number]: Janie | [facility] | | [facility] SPECIMEN DESCRIPTION: ThinPrep Imaged Liquid Pap [...] + + | REFERENCE LAB | [address] | [place] [address] | [phone] | | [facility] | [address] | | [...] 1.030 | [facility] | | | [place] | | | [address] | [...] T [facility] | | | | [address] [facility] [address] | | C JONN | | | |Performed by [facility] [address] [facility] [address] | | L ABORATORY | | + + + +-- + + + + | Specimen | + + | Urine specimen | | (specimen) | + + + + + + + | Performing | Address | City/State/Zipcode | Phone Number | | Organization | | | | + + + + + | [facility] | [address] | [place] [address] | [phone] | | [facility] | | | [...] - 1.030 | [facility] | | | [place] | by [facility] [address] | | [address] | | | | [address] [place] | | CORE | | | | [address] | | LABORATORY | | + + + + + + + + | Specimen | + + | Urine specimen | | (specimen) | + + + + + + + | Performing | Address | City/State/Zipcode | Phone Number | | Organization | | | | + + + + + | [facility] | [address] | [place] [address] | [phone] | | [facility] | | | | | LABORATORY | | | | + + + + + documented in this encounter Visit Diagnoses + + | Diagnosis | + + | Well woman exam - Primary Routine general medical examination at [facility] | | facility | + [...]
--- OUTSIDE RECORDS SUMMARY | ~2019-09-20 | XMS | Encounter Summary ---
Demographics + + + | Address | [address] | | | [place] [address] | + + + | Home Phone | | + + + | Preferred Language | Unknown | + + + | Marital Status | Single | + + + | Denominational Affiliation | 1013 | + + + | Race | Unknown | + + + | Ethnic Group | Unknown | + + + Author + + + | Author | [facility] | | | and Jeffana | + + + | Organization | [facility] | | | [...] Team Providers + +------+ + | Care Direct Service Provider Name | Role | Phone | + +------+ + | Gordon Rivero MD | PCP | | + +------+ + Encounter Details +--------+ + + + + | Date | Type | Department | Care Team | Description | +--------+ + + + + | 10/11/ | Documentati | [facility] | Jose Luis Hoyos, | | | 2013 | on | [facility] | Luis M, MOBILE MANAGER [address] | | | | | [address] | [facility] [address] | | | | | [address] | [place] [address] | | | | | [place], [place] | [phone] | | | | | [address] | | | | | | [phone] | | | +--------+ + + + [...] documented as of this encounter Progress Notes Luis M Mahoney, SANTOSH - 10/11/2013 8:44 AM PSTA "Social Service Alert" (e.g., "pink card") is on file at the [facility]. The following concerns/requests were not ed: ___x___Observe/document parent/child interaction Do not discharge without CPS ok, baby may room in CPS suspects substance abuse, request doctor ask mom for UTOX, or, ___x___Request Ped request UTOX due to maternal substance use ADMINISTRATIVE HOLD per CPS request, baby to SCN ADOPTION __none known / Name of Dental Therapist Phone # ____none known / Name of Agency/Worker Phone# Recent Positive UTOX for heroin, Mj. Pt. Refused any tx., refused help from behavioral heal th. Please assess for chemical dependency affecting ability of pt. To care for . No M SS services. documented in this encounter Plan of Treatment Not on filedocumented as of this encounter Visit Diagnoses Not on filedocumented in this encounter
--- OUTSIDE RECORDS SUMMARY | ~2019-09-20 | XMS | Encounter Summary ---
Demographics + + + | Address | [address] | | | [place] [address] | + + + | Home Phone | | + + + | Preferred Language | Unknown | + + + | Marital Status | Single | + + + | Baptist Affiliation | 1013 | + + + | Race | Unknown | + + + | Ethnic Group | Unknown | + + + Author + + + | Author | [facility] | | | and Jeffana | + + + | Organization | [facility] | | [...] Team Providers + +------+ + | Care Tire Buffer Name | Role | Phone | + +------+ + | Gordon Rivero MD | PCP | | + +------+ + Reason for Visit + + + | Reason | Comments | + + + | Medication Refill | Needs RX for amoxicillin, tooth infected; please advise | | Assistance | | + + + Encounter Details +--------+ + + + + | Date | Type | Department | Care Team | Description | +--------+ + + + + | 01/24/ | Telephone | [facility] | Gordon Rivero MD | Medication Refill | | 2013 | | [address] [facility] | [address] | Assistance (Needs RX | | | | [address] | [place] [address] | for amoxicillin, | | | | [address] | [phone] | tooth infected; | | | | [place] | | please advise) | | | | [address] | | | | | | [phone] | | | +--------+ + + + [...] + | Diagnosis | + + | Dental infection - Primary Acute apical periodontitis of pulpal origin | + + documented in this encounter"
--- OUTSIDE RECORDS SUMMARY | ~2019-09-20 | XMS | Encounter Summary ---
Demographics + + + | Address | [address] | | | [place] [address] | + + + | Home Phone [...] Team Providers + +------+ + | Care Air Intelligence Officer Name | Role | Phone | + +------+ + | Wesley Dinero | PCP | | | KNITTER MECHANIC | | | + +------+ + Encounter Details +--------+ + + + + | Date | Type | Department | Care Team | Description | +--------+ + + + + | 05/27/ | Abstract | [facility] | [place], | | | 2011 | | Group - [place] | [place] | | | | | Administration [address] | [address] | | | | | [address] | [place] [address] | | | | | [facility] [place] | [phone] | | | | | [address] | | | | | | [phone] | | | +--------+ + + + [...]
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
--- OUTSIDE RECORDS SUMMARY | ~2019-09-20 | XMS | Encounter Summary ---
Demographics + + + | Address | [address] | | | [place] [address] | + + + | Home Phone | | + + + | Preferred Language | Unknown | + + + | Marital Status | Single | + + + | Congregation Affiliation | 1013 | + + + | Race | Unknown | + + + | Ethnic Group | Unknown | + + + Author + + + | Author | [facility] | | | and Jeffana | + + + | Organization | [facility] | [...] Team Providers + +------+ + | Care Copyright Manager Name | Role | Phone | [...] | | | [address] | [place] [address] | | | | | [place] | [phone] | | | | | [place], [place] | | | | | | [address] | | | | | | [phone] | | | +--------+--------+ + + + [...]
--- OUTSIDE RECORDS SUMMARY | ~2019-09-20 | XMS | Encounter Summary ---
Demographics + + + | Address | [address] | | | [place] [address] | + + + | Home Phone | | + + + | Preferred Language | Unknown | + + + | Marital Status | Single | + + + | Yazdanism Affiliation | 1013 | + + + | Race | Unknown | + + + | Ethnic Group | Unknown | + + + Author + + + | Author | [facility] | | | and Jeffana | + + + | Organization | [facility] | | | [...] Team Providers + +------+ + | Care Sales Team Recruiter Name | Role | Phone | + [...] | | | [address] | [place] [address] | | | | | [place] | [phone] | | | | | [place] | | | | | | [address] | | | | | | [phone] | | | +--------+ + + + [...]
--- OUTSIDE RECORDS SUMMARY | ~2019-09-20 | XMS | Encounter Summary ---
Demographics + + + | Address | [address] | | | [place] [address] | + + + | Home Phone | | + + + | Preferred Language | Unknown | + + + | Marital Status | Single | + + + | Catholic Affiliation | 1013 | + + + | Race | Unknown | + + + | Ethnic Group | Unknown | + + + Author + + + | Author | [facility] | | | and Jeffana | + + + | Organization | [facility] | | | [...] Team Providers + +------+ + | Care Circuitry Negative Inspector Name | Role | Phone | + +------+ + | Meet Small MD | PCP | | + +------+ + Encounter Details +--------+ + + + + | Date | Type | Department | Care Team | Description | +--------+ + + + + | 05/16/ | Hospital | [facility] | Tiffany Gtz, | Family planning; | | 2013 | Encounter | [facility] | MD [address] | Dysuria | | | | CLINICAL LAB SERVS | [place], [place] | | | | | [address] | [address] | | | | | [place], [place] | | | | | | [address] | | | | | | [phone] | | | +--------+ + + + [...] 1.030 | [facility] | | | [place] | | | [address] [facility] | [...] [address] | | | | [address] [facility] [address] | | C ORE | | | |Performed by [facility] [address] [facility] [address] | | L ABORATORY | | + + + +-- + + + + | Specimen | + + | Urine specimen | | (specimen) | + + + + + + + | Performing | Address | City/State/Zipcode | Phone Number | | Organization | | | | + + + + + | [facility] | [address] | [place] [address] | [phone] | | [facility] | | | [...] - 1.030 | [facility] | | | [place] | by [facility] [address] | | [address] [facility] | | | | [address] [place] | | CORE | | | | [address] | | LABORATORY | | + + + + + + + + | Specimen | + + | Urine specimen | | (specimen) | + + + + + + + | Performing | Address | City/State/Zipcode | Phone Number | | Organization | | | | + + + + + | [facility] | [address] [place] [address] | [place] [address] | [phone] | | [facility] | | | | | LABORATORY | | | | + + + + + documented in this encounter Visit Diagnoses + + | Diagnosis | + + | Family planning Other general counseling and advice for contraceptive management | + + | Dysuria | + + documented in this encounter"
--- OUTSIDE RECORDS SUMMARY | ~2019-09-20 | XMS | Encounter Summary ---
Demographics + + + | Address | [address] | | | [place] [address] | + + + | Home Phone | | + + + | Preferred Language | Unknown | + + + | Marital Status | Single | + + + | Mandaeism Affiliation | 1013 | + + + [...] Team Providers + +------+ + | Care Prisoner Classification Interviewer Name | Role | Phone | + +------+ + | Gordon Rivero MD | PCP | | + +------+ + Encounter Details +--------+ + + + + | Date | Type | Department | Care Team | Description | +--------+ + + + + | 09/18/ | Hospital | [facility] | Anastacia La MD | Supervision of other | | 2013 | Encounter | [facility] | [address] | normal ; | | | | CLINICAL LAB SERVS | [place] [address] | Polysubstance abuse | | | | [address] | [phone] | | | | | [place], [place] | | | | | | [address] | | | | | | [phone] | | | +--------+ + + + [...] | DRUGS OF ABUSE, | Routin | 09/18/2013 | Supervision of | Results for this | | SCREEN, URINE | e | 11:56 AM | other normal | procedure are in the | | | | PST | | results section. | + +--------+ + + + | GESTATIONAL GLUCOSE | Routin | 09/18/2013 | Supervision of | Results for this | | TEST, 1HR | e | 10:40 AM | other normal | procedure are in the | | | | PST | | results section. | + +--------+ + + + | HEPATITIS C AB | Routin | 09/18/2013 | Supervision of | Results for this | | | e | 10:40 AM | other normal | procedure are in the | | | | PST | | results section. | | | | | Polysubstance abuse | | + +--------+ + + + | HEMOGLOBIN AND | Routin | 09/18/2013 | Supervision of | Results for this | | HEMATOCRIT | e | 10:40 AM | other normal | procedure are in the | | | | PST | | results section. | + +--------+ + + + documented in this encounter Results Drugs of Abuse, Screen, Urine (09/18/2013 11:56 AM PST) + + + + + [...] + + + + | Creatinine, | 40.70 | >=20.00 mg/dL | [facility] | | | Urine | | | [facility] | | | | | | CORE | | | | | | LABORATORY | | + + + + + + | pH, Urine | 6.4 | 5.0 - 8.0 | [facility] | [...] | + + + + + | [facility] | [address] [place] [address] NE | [place] [address] | [phone] | | [facility] | | | | | LABORATORY | | | | + + + + + Hemoglobin and Hematocrit (09/18/2013 10:40 AM PST) + +-------+ + + + | Component | Value | Ref Range | Performed | Pathologist | | | | | At | Signature | + +-------+ + + + | Hemoglobin | 12.6 | 11.3 - 15.5 | [facility] | | | | | g/dL | [facility] | | | | [...] + + | [address] | [address] | [place] [address] | [phone] | | [facility] | | | [...] | Non Reactive | Non Reactive | [facility] | | | | | | [facility] | | | | | | CORE | | | | | | LABORATORY | | + + + + + + | Hepatitis C | Absence of antibody | | [facility] | | | Ab | suggests no past | | [facility] | | | Interpretat | Hepatitis C [...] + + | [facility] | [address] | [place] [address] | [phone] | | [facility] | | | [...] 85 | 65 - 130 mg/dL | [facility] | | | GTT 1HR | | | [facility] | | | Preg | | | [...] + + | [facility] | [address] | [place] [address] | [phone] | | [facility] | | | [...]
--- OUTSIDE RECORDS SUMMARY | ~2019-09-20 | XMS | Encounter Summary ---
Demographics + + + | Address | [address] | | | [place] [address] | + + + | Home Phone | | + + + | Preferred Language | Unknown | + + + | Marital Status | Single | + + + | Orthodox Affiliation | 1013 | + + [...] Team Providers + +------+ + | Care Vehicle Trimmer Name | Role | Phone | + [...] | | [address] | [place] [address] | | | | | [place] | [phone] | | | | | [place] | | | | | | [address] | | | | | | [phone] | | | +--------+ + + + [...] bleeding months ago & evaluated 'fine' at [facility]), no dysuria; has some constipation with [...] on file Social History Narrative Born in [place], has 5 sibs (family not in area).Son Joey at 21yoa ( from FOB & not involved).Staying with [employer] friend Marie & her kids & fiancee, [...] testing of mom & baby, and implications [place] notification of positive tests. Drugs of [...] son Joey FOB not involved. Born in [place], staying with [employer] friend Marie & her kids & fiancee, looking for own place. Looking for work, working with [employer] & [employer]. Choices: Delivery: ? [facility] Feeding:? Contraception: ? Nuclear Power Reactor Operator: ? ERMA Tx PCP from [facility]. Plan: Immunizations: TDaP 3rd trimester, flu done. [...] + | MISCELLANEOUS LAB | | | [phone] | + +---------+ + + | MISCELANIOUS LAB | | | [phone] | + +---------+ + + Drugs of [...] | + + + + + | [facility] | [address] [place] [address] NE | [place] [id number] | [phone] | | [facility] | | | [...]
--- OUTSIDE RECORDS SUMMARY | ~2019-09-20 | XMS | Encounter Summary ---
Demographics + + + | Address | [address] | | | [place] [address] | + + + | Home Phone [...] + + + | Author | [facility] | | | and Jeffana | + + + | Organization | [facility] | | [...] Team Providers + +------+ + | Care Design Inserter Name | Role | Phone | + +------+ + | Adelita Pierce | PCP | | + +------+ + Encounter Details +--------+ + + + + | Date | Type | Department | Care Team | Description | +--------+ + + + + | 05/26/ | Hospital | [facility] | | | | 2009 | Encounter | [facility] | | | | | | GENERIC OP CONV DEPT | | | | | | [address] | | | | | | [place], [place] | | | | | | [address] | | | | | | [phone] | | | +--------+ + + + [...]
--- OUTSIDE RECORDS SUMMARY | ~2019-09-20 | XMS | Encounter Summary ---
Demographics + + + | Address | [address] | | | [place] [address] | + + + | Home Phone | | + + + | Preferred Language | Unknown | + + + | Marital Status | Single | + + + | Holiness Affiliation | 1013 | + + + | Race | Unknown | + + + | Ethnic Group | Unknown | + + + Author + + + | Author | [facility] | | | and Jeffana | + + + | Organization | [facility] | | [...] Team Providers + +------+ + | Care Cns Name | Role | Phone | + [...] | Telephone | [facility] | Lin eRyes DO | Medication Refill | | 2013 | | [facility] | [address] | | | | | [address] | [place] [address] | | | | | [address] | [phone] | | | | | [place], [place] | | | | | | [address] | | | | | | [phone] | | | +--------+ + + + [...]
--- OUTSIDE RECORDS SUMMARY | ~2019-09-20 | XMS | Encounter Summary ---
Demographics + + + | Address | [address] | | | [place] [address] | + + + | Home Phone | | + + + | Preferred Language | Unknown | + + + | Marital Status | Single | + + + | Moravian Affiliation | 1013 | + + + | Race | Unknown | + + + | Ethnic Group | Unknown | + + + Author + + + | Author | [facility] | | | and Jeffana | + + + | Organization | [facility] | | | [...] Team Providers + +------+ + | Care Expense Analyst Name | Role | Phone | + +------+ + | Gordon Rivero MD | PCP | | + +------+ + Reason for Visit + + + | Reason | Comments | + + + | Records Request | primary care records received | + + + Encounter Details +--------+ + + + + | Date | Type | Department | Care Team | Description | +--------+ + + + + | 09/22/ | Documentati | [facility] | Gordon Rivero MD | Records Request | | 2013 | on | [facility] | [address] | (primary care | | | | [address] | [place] [address] | records received) | | | | [place] | [phone] | | | | | [place], [place] | | | | | | [address] | | | | | | [phone] | | | +--------+ + + + [...] Progress Notes Gordon Rivero MD - 09/22/2013 7:41 AM PSTDocuments Received [facility] Records Sent for scanning Briefly: 06/06/10 started trial Lamictal and Celexa for cycling moods and mom h/o bipolar. 09/30/10: Pap insufficient, repeat in 1 year. 01/12/10 CT ab/p: extreme lack of fat planes, 2mm left renal calculus, constipation, gallblad fady sludge. Problem list & health maintenance updatedElectronically signed by Gordon Rivero MD at 09/22 7:51 AM PSTdocumented in this encounter Plan of Treatment Not on filedocumented as of this encounter Procedures + +--------+ + + + | Procedure Name | Priori | Date/Time | Associated Diagnosis | Comments | | | ty | | | | + +--------+ + + + | EXTERNAL LAB: [facility] | Routin | 12/14/2007 | | Results for this | | | e | | | procedure are in the | | | | | | results section. | + +--------+ + + + documented in this encounter Results External Lab: [facility] (12/14/2007) + +-------+ + + + | Component | Value | Ref Range | Performed | Pathologist | | | | | At | Signature | + +-------+ + + + | TSH, | 1.68 | | | | | External | | | | | + +-------+ + + + + + | Specimen | + + | Blood specimen | | (specimen) | + + documented in this encounter Visit Diagnoses + + | Diagnosis | + + | Preventative health care - Primary Routine general medical examination at a health | | care facility | + + | Supervision of other normal | + + | Nephrolithiasis Calculus of kidney | + + documented in this encounter"
--- OUTSIDE RECORDS SUMMARY | ~2019-09-20 | XMS | Encounter Summary ---
Demographics + + + | Address | [address] | | | [place] [address] | + + + | Home Phone [...] Team Providers + +------+ + | Care Meatman Name | Role | Phone | + +------+ + | Wesley Dinero | PCP | | | MEALS ON WHEELS DRIVER | | | + +------+ + Encounter Details +--------+ + + + + | Date | Type | Department | Care Team | Description | +--------+ + + + + | 05/27/ | Abstract | [facility] | [place], | | | 2011 | | [place] - [place] | Wesley BERTO Da Silva | | | | | Administration [address] | [address] | | | | | [address] | [place] [address] | | | | | [facility] [place] | [phone] | | | | | [address] | | | | | | [phone] | | | +--------+ + + + [...]
--- OUTSIDE RECORDS SUMMARY | ~2019-09-20 | XMS | Encounter Summary ---
Demographics + + + | Address | [address] | | | [place] [address] | + + + | Home Phone | | + + + | Preferred Language | Unknown | + + + | Marital Status | Single | + + + | Spiritism Affiliation | 1013 | + + + | Race | Unknown | + + + | Ethnic Group | Unknown | + + + Author + + + | Author | [facility] | | | and [place]ana | + + + | Organization | [facility] | | [...] Team Providers + +------+ + | Care Taping Machine Operator Name | Role | Phone | + +------+ + | Gordon Rivero MD | PCP | | + +------+ + Reason for Visit +--------+ + | Reason | Comments | +--------+ + | Other | | +--------+ + Encounter Details +--------+ + + + + | Date | Type | Department | Care Team | Description | +--------+ + + + + | 09/01/ | Telephone | [facility] | Gordon Rivero MD | Other | | 2012 | | [address] [facility] | [address] | | | | | [address] | [place] [address] | | | | | [place] | [phone] | | | | | [place] | | | | | | [address] | | | | | | [phone] | | | +--------+ + + + [...]
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
--- OUTSIDE RECORDS SUMMARY | ~2019-09-20 | XMS | Encounter Summary ---
Demographics + + + | Address | [address] | | | [place] [address] | + + + | Home Phone | | + + + | Preferred Language | Unknown | + + + | Marital Status | Single | + + + | Church Affiliation | 1013 | + + + | Race | Unknown | + + + | Ethnic Group | Unknown | + + + Author + + + | Author | [facility] | | | and [place]ana | + + + | Organization | [facility] | | [...] Team Providers + +------+ + | Care Television Repair Teacher Name | Role | Phone | + +------+ + | Wesley Dinero | PCP | | | BRAKE COUPLER DINKEY | | | + +------+ + Reason for Visit + + + | Reason | Comments | + + + | Dysuria | room 2/ 3 day | + + + | Back Pain | x 1 month | + + + | Abdominal Pain | | + + + | Fatigue | | + + + | Sweats | | + + + Encounter Details +--------+---------+ + + + | Date | Type | Department | Care Team | Description | +--------+---------+ + + + | 01/04/ | Office | [facility] | Debi Michelle | UTI (lower urinary | | 2012 | Visit | [facility] [address] | [address] | tract infection) | | | | [facility] | [place], [place] | (Primary Dx); FLANK | | | | [place] | [address] | PAIN; Bronchitis | | | | [address] | | with bronchospasm | | | | [phone] | | | +--------+---------+ + + + [...] Comments | + + +---------+ + | Not Asked | | | | + + +---------+ + + + [...] + + + | Blood Pressure | 118/88 | 01/04/2013 11:26 AM | | | | | PDT | | + + + + + | Pulse | 108 | 01/04/2013 11:26 AM | | | | | PDT | | + + + + + | Temperature | 37.5 C (99.5 F) | 01/04/2013 11:26 AM | | | | | PDT | | + + + + + | Respiratory Rate | 18 | 01/04/2013 11:26 AM | | | | | PDT | | + + + + + | Oxygen Saturation | 97% | 01/04/2013 11:26 AM | | | | | PDT | | + + + + + | Inhaled Oxygen | - | - | | | Concentration | | | | + + + + + | Weight | 70.3 kg (155 lb) | 01/04/2013 11:26 AM | | | | | PDT | | + + + + + | Height | 170.2 cm (5' 7") | 01/04/2013 11:26 AM | | | | | PDT | | + + + + + | Body Mass Index | 24.28 | 01/04/2013 11:26 AM | | | | | PDT | | + + + + + documented in this encounter Patient Instructions Patient Instructions Debi Michelle MD - 01/04/2013 11:41 AM PDTBactrim will cove r for both UTI and bronchitis Hydrate well Poventil inhaler--2 puffs every 6 hours Home and rest documented in this encounter Progress Notes Debi Michelle MD - 01/04/2013 12:09 PM PDTFormatting of this note might be diffe rent from the original. Subjective: Patient ID: Janie Tavera is a 27 y.o. female. Dysuria This is a new problem. Episode onset: Pt states it has been ongoing for a month. The proble m occurs every urination. The problem has been gradually worsening. The quality of the pain is described as aching and burning. The pain is at a severity of 3/10. The pain is mild. The maximum temperature recorded prior to her arrival was 100 - 100.9 F. The fever has been pre sent for 1 - 2 days. She is not sexually active. There is no history of pyelonephritis. Asso ciated symptoms include flank pain, hesitancy and urgency. Pertinent negatives include no ch ills, discharge or sweats. Associated symptoms comments: Pt also Complains of flank pain an d has been having a productive cough that has been ongoing for a week or so. She has tried n othing for the symptoms. The treatment provided no relief. Patient's medications, allergies, past medical, surgical, social and family histories were reviewed and updated as appropriate. Review of Systems Constitutional: Negative for chills. Genitourinary: Positive for hesitancy, urgency and flank pain. All other systems reviewed and are negative. Objective: Physical Exam Nursing note and vitals reviewed. Constitutional: She is oriented to person, place, and time. She appears well-developed and well-nourished. HENT: Head: Normocephalic and atraumatic. Neck: Normal range of motion. Neck supple. Cardiovascular: Normal rate, regular rhythm and normal heart sounds. Pulmonary/Chest: Effort normal. No respiratory distress. She has wheezes. She has no rales. Neurological: She is oriented to person, place, and time. Skin: Skin is warm and dry. Psychiatric: She has a normal mood and affect. Assessment: UTI and bronchitis with Bronchospasm Pt had UA with 2+ leuks Plan: Bactrim will cover for both UTI and bronchitis Hydrate well Poventil inhaler--2 puffs every 6 hours Home and rest documented in this encounter Plan of Treatment Not on filedocumented as of this encounter Procedures + +--------+ + + + | Procedure Name | Priori | Date/Time | Associated Diagnosis | Comments | | | ty | | | | + +--------+ + + + | POCT URINALYSIS, | Routin | 01/04/2013 | Flank Pain | Results for this | | AUTO WITH CONF | e | 11:26 AM | | procedure are in the | | | | PDT | | results section. | + +--------+ + + + documented in this encounter Results POCT Urinalysis Dipstick Automated (01/04/2013 11:26 AM PDT) + + + + + + | Component | Value | Ref Range | Performed | Pathologist | | | | | At | Signature | + + + + + + | Color, UA, | Yellow | | | | | POC | | | | | + + + + + + | Clarity, | Hazy | | | | | UA, POC | | | | | + + + + + + | Glucose, | Negative | | | | | UA, POC | | | | | + + + + + + | Bilirubin, | Negative | | | | | UA, POC | | | | | + + + + + + | Ketones, | Negative | Negative | | | | UA, POC | | | | | + + + + + + | Specific | 1.020 | | | | | [place], | | | | | | UA, POC | | | | | + + + + + + | Blood, UA, | Trace Intact | | | | | POC | | | | | + + + + + + | pH, UA, POC | 7.0 | | | | + + + + + + | Protein, | Negative | | | | | UA, POC | | | | | + + + + + + | Urobilinoge | 0.2 mg/dL | | | | | n, UA, POC | | | | | + + + + + + | Nitrite, | Positive | | | | | UA, POC | | | | | + + + + + + | Leukocyte | 2+ | | | | | Esterase, | | | | | | UA, POC | | | | | + + + + + + | Reducing | | Negative | | | | Substances, | | | | | | Urine | | | | | + + + + + + | Ictotest | | Negative | | | + + + + + + | Remark | | | | | + + + + + + + + | Specimen | + + | Urine specimen | | (specimen) | + + documented in this encounter Visit Diagnoses + + | Diagnosis | + + | UTI (lower urinary tract infection) - Primary Urinary tract infection, site not | | specified | + + | Flank pain Abdominal pain, unspecified site | + + | Bronchitis with bronchospasm Acute bronchitis | + + documented in this encounter
--- OUTSIDE RECORDS SUMMARY | ~2019-09-20 | XMS | Encounter Summary ---
Demographics + + + | Address | [address] | | | [place] [address] | + + + | Home Phone [...] Team Providers + +------+ + | Care Brand Sales Consultant Name | Role | Phone | [...] | | [address] | [place] [address] | | | | | [place] | [phone] | | | | | [place] | | | | | | [address] | | | | | | [phone] | | | +--------+ + + + [...] encounter Progress Notes Gordon Rivero MD - 10/10/2013 12:21 PM PSTDepression and [...] tox Large cerebral ventricles with visits to [facility] (need records). Will need MRI. Poor dentition [...] Reports recent f/u US and visit with [facility] shows no hydrocephalus so routine delivery a [...] es management. 2. ventriculomegally without hydrocephalus, requested [facility] records & anticipate PP ref erral to [...] to diseased teeth. Advised to call her [facility] dentist for appointment as soon [...] + + + + + | [facility] | [address] | [place] [address] | [phone] | | [facility] | | | [...]
--- OUTSIDE RECORDS SUMMARY | ~2019-09-20 | XMS | Encounter Summary ---
Demographics + + + | Address | [address] | | | [place] [address] | + + + | Home Phone | | + + + | Preferred Language | Unknown | + + + | Marital Status | Single | + + + | Confucianism Affiliation | 1013 | + + + | Race | Unknown | + + + | Ethnic Group | Unknown | + + + Author + + + | Author | [facility] | | | and [place]ana | + + + | Organization | [facility] | | | and [...] Team Providers + +------+ + | Care Geomatics Professor Name | Role | Phone | + +------+ + | Adelita Pierce | PCP | | + +------+ + Encounter Details +--------+ + + + + | Date | Type | Department | Care Team | Description | +--------+ + + + + | 05/26/ | Hospital | [facility] | | | | 2009 | Encounter | [facility] | | | | | | GENERIC OP CONV DEPT | | | | | | [address] | | | | | | [place], [place] | | | | | | [address] | | | | | | [phone] | | | +--------+ + + + [...]
--- OUTSIDE RECORDS SUMMARY | ~2019-09-20 | XMS | Encounter Summary ---
Demographics + + + | Address | [address] | | | [place] [address] | + + + | Home Phone [...] Team Providers + +------+ + | Care Electrical Instrumentation Technician Name | Role | Phone | [...] 2013 | | [address] [facility] | ORGAN PIPE FINISHER | | | | | [address] | | | | | | [address] | | | | | | [place] | | | | | | [address] | | | | | | [phone] | | | +--------+--------+ + + + [...]
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
--- OUTSIDE RECORDS SUMMARY | ~2019-09-20 | XMS | Encounter Summary ---
Demographics + + + | Address | [address] | | | [place] [address] | + + + | Home Phone | | + + + | Preferred Language | Unknown | + + + | Marital Status | Single | + + + | Confucianism Affiliation | 1013 | + + + | Race | Unknown | + + + | Ethnic Group | Unknown | + + + Author + + + | Author | [facility] | | | and [place] | + + + | Organization | [facility] | | | [...] Team Providers + +------+ + | Care Product Evangelist Name | Role | Phone | + [...] + + | 01/24/ | Telephone | [facility] | Gordon Rivero MD | Medication Refill | | 2013 | | [facility] [address] [facility] | [address] | Assistance (Needs RX | | | | [address] [facility] | [place] [address] | for amoxicillin, | | | | [place] | [phone] | tooth infected; | | | | [place] | | please advise) | | | | [address] | | | | | | [phone] | | | +--------+ + + + [...]
--- OUTSIDE RECORDS SUMMARY | ~2019-09-20 | XMS | Encounter Summary ---
Demographics + + + | Address | [address] | | | [place] [address] | + + + | Home Phone [...] + + + | Author | [facility] | | | and [place]ana | + + + | Organization | [facility] | | [...] Team Providers + +------+ + | Care Soot Blower Name | Role | Phone | + [...] [facility] | Gordon Rivero MD | Jason | | 2013 | | [address] [facility] | [address] | | | | | [address] | [place] [address] | | | | | [place] | [phone] | | | | | [place] | | | | | | [address] | | | | | | [phone] | | | +--------+ + + + [...]
--- OUTSIDE RECORDS SUMMARY | ~2019-09-20 | XMS | Encounter Summary ---
Demographics + + + | Address | [address] | | | [place] [address] | + + + | Home Phone | | + + + | Preferred Language | Unknown | + + + | Marital Status | Single | + + + | Cheondoism Affiliation | 1013 | + + + | Race | Unknown | + + + | Ethnic Group | Unknown | + + + Author + + + | Author | [facility] | | | and Jeffana | + + + | Organization | [facility] | | | and [...] Team Providers + +------+ + | Care Terminal System Operator Name | Role | Phone | + +------+ + | Gordon Rivero MD | PCP | | + +------+ + Encounter Details +--------+ + + + + | Date | Type | Department | Care Team | Description | +--------+ + + + + | 10/10/ | Hospital | [facility] | Koffi Sinha | | | 2013 | Encounter | [facility] | DO Rufina Summers | | | | | CLINICAL LAB SERVS | [address] | | | | | [address] | [place] [address] | | | | | [place], [place] | [phone] | | | | | [address] | | | | | | [phone] | | | +--------+ + + + [...] + | VAGINAL PATHOGENS | Routin | 10/10/2013 | | Results for this | | DNA | e | 9:07 AM | | procedure are in the | | | | PST | | results section. | + +--------+ + + + documented in this encounter Results Vaginal Pathogens DNA (10/10/2013 9:07 AM PST) + + + + + [...] + + + + | [facility] | Positive (A) | Negative | [facility] [...] + + + | [facility] | [address] | [place] [address] | [phone] | | [facility] | | | | | LABORATORY | | | | + + + + + documented in this encounter Visit Diagnoses Not on filedocumented in this encounter"
--- OUTSIDE RECORDS SUMMARY | ~2019-09-20 | XMS | Encounter Summary ---
Demographics + + + | Address | [address] | | | [place] [address] | + + + | Home Phone | | + + + | Preferred Language | Unknown | + + + | Marital Status | Single | + + + | Yarsani Affiliation | 1013 | + + + [...] Team Providers + +------+ + | Care Instructional Support Technician Name | Role | Phone | [...] | Perinatology | Diagnoses | Doran, | [facility] | | | Services | | Abnormal | [place], DO | IMAGING - ON | | | Required | | [place] | [address] | [address] | | | | [address] | [place] | | | | | | [place], [place] | [address] | | | | | | [address] | [place] | | | | | | Phone: | [address] | | | | | | [phone] | Phone: | | | | | | Fax: | [phone] | | | | | | [phone] | Fax: | | | | | | | [phone] | +--------+ + + + + + Reason for Visit + + + | Reason | Comments | + + + | Abnormal Ultrasound | | + + + Encounter Details +--------+ + + + + | Date | Type | Department | Care Team | Description | +--------+ + + + + | 07/24/ | Telephone | [facility] | Gordon Rivero MD | Abnormal Ultrasound | | 2012 | | [facility] | [address] | | | | | [facility] | [place] [address] | | | | | [address] [place] | [phone] | | | | | [place], [place] | | | | | | [address] | | | | | | [phone] | | | +--------+ + + + [...] Ambulatory referral | Outpatient | Routin | Abnormal | 1 Occurrences | | to Perinatology | Referral | e | US | starting 07/24/2013 | | | | | | until 07/24/2014 | + + +--------+ + + documented as of this encounter Visit Diagnoses + + | Diagnosis | + + | Abnormal US - Primary Abnormal findings on screening | + + documented in this encounter"
--- OUTSIDE RECORDS SUMMARY | ~2019-09-20 | XMS | Encounter Summary ---
Demographics + + + | Address | [address] | | | [place] [address] | + + + | Home Phone | | + + + | Preferred Language | Unknown | + + + | Marital Status | Single | + + + | Confucianism Affiliation | 1013 | + + + | Race | Unknown | + + + | Ethnic Group | Unknown | + + + Author + + + | Author | [facility] | | | and [place] | + + + | Organization | [facility] | | | [...] Team Providers + +------+ + | Care Multi Purpose Machine Operator Name | Role | Phone | + +------+ + | Gordon Rivero MD | PCP | | + +------+ + Encounter Details +--------+ + + + + | Date | Type | Department | Care Team | Description | +--------+ + + + + | 07/20/ | Hospital | [facility] | Abundio Taveras MD [address] | Supervision of other | | 2013 | Encounter | [facility] | [address] | normal | | | | CLINICAL LAB SERVS | [place] [address] | | | | | [address] | [phone] | | | | | [place], [place] | | | | | | [address] | | | | | | [phone] | | | +--------+ + + + [...] (PROAIR | Inhale 2 puffs into | 1 | 2 | 01/05/20 | | | HFA) 90 mcg/puff | the lungs every 6 | Inhaler | | 13 | 3 | | inhaler | hours as needed for | | | | | | | Wheezing. | | | | | + + + +---------+ + + | FLUoxetine | Take 20 mg by mouth | | 0 | | | | (PROZAC) 20 mg | daily. | | | | 3 | | capsule | | | | | | + + + +---------+ + + | Levonorgest-Eth | TABS | | 0 | 05/27/20 | | | Estrad - | | | | 12 | 3 | | (SEASONIQUE PO) | [...] + + + +---------+ + + | traZODone | | | 0 | 05/27/20 | | | (DESYREL) 100 mg | | | | 12 | 3 | | tablet | | | | | | + [...] + | CULTURE, URINE | Routin | 07/20/2013 | | Results for this | | | e | 11:29 AM | | procedure are in the | | | | PST | | results section. | + +--------+ + + + | PANEL | Routin | 07/20/2013 | Supervision of | | | | e | 11:28 AM | other normal | | | | | PST | | | + +--------+ + + + | ABO RH | Routin | 07/20/2013 | Supervision of | Results for this | | | e | 11:28 AM | other normal | procedure are in the | | | | PST | | results section. | + +--------+ + + + | HCG, URINE, QUAL | Routin | 07/20/2013 | Supervision of | Results for this | | | e | 11:28 AM | other normal | procedure are in the | | | | PST | | results section. | + +--------+ + + + | DRUGS OF ABUSE, | Routin | 07/20/2013 | Supervision of | Results for this | | SCREEN, URINE | e | 11:28 AM | other normal | procedure are in the | | | | PST | | results section. | + +--------+ + + + | RUBELLA AB, IGG | Routin | 07/20/2013 | Supervision of | Results for this | | | e | 11:28 AM | other normal | procedure are in the | | | | PST | | results section. | + +--------+ + + + | RAPID PLASMA REAGIN, | Routin | 07/20/2013 | Supervision of | Results for this | | QUAL | e | 11:28 AM | other normal | procedure are in the | | | | PST | | results section. | + +--------+ + + + | HIV 1 AND 2 AB, | Routin | 07/20/2013 | Supervision of | Results for this | | REFLEX | e | 11:28 AM | other normal | procedure are in the | | | | PST | | results section. | + +--------+ + + + | HEPATITIS B SURFACE | Routin | 07/20/2013 | Supervision of | Results for this | | AG | e | 11:28 AM | other normal | procedure are in the | | | | PST | | results section. | + +--------+ + + + | CBC WITH | Routin | 07/20/2013 | Supervision of | Results for this | | DIFFERENTIAL | e | 11:28 AM | other normal | procedure are in the | | | | PST | | results section. | + +--------+ + + + | ANTIBODY SCREEN | Routin | 07/20/2013 | Supervision of | Results for this | | | e | 11:28 AM | other normal | procedure are in the | | | | PST | | results section. | + +--------+ + + + documented in this encounter Results Culture, Urine (07/20/2013 11:29 AM PST) + + + + + + | Component | Value | Ref Range | Performed | Pathologist | | | | | At | Signature | + + + + + + | Final | Greater than 100,000 | | [facility] | | | Result | cfu/ml Probable | | [facility] | | | | Gardnerella vaginalis | | CORE | | | | 1,000 cfu/ml Gram | | LABORATORY | | | | Positive Organisms | | | | + + + + + + + + | Specimen | + + | Urine specimen | | (specimen) | + + + + + + + | Performing | Address | City/State/Zipcode | Phone Number | | Organization | | | | + + + + + | [facility] | [address] | [place] [address] | [phone] | | [facility] | | | | | LABORATORY | | | | + + + + + Antibody Screen (07/20/2013 11:28 AM PST) + + + + + + | Component | Value | Ref Range | Performed | Pathologist | | | | | At | Signature | + + + + + + | Antibody | Negative | | [facility] | | | Screen | | | [facility] | | [...] + | [facility] | [address] | [place] [address] | [phone] | | [facility] | | | | | LABORATORY | | | | + + + + + Hepatitis B Surface Ag (07/20/2013 11:28 AM PST) + + + + + + | Component | Value | Ref Range | Performed | Pathologist | | | | | At | Signature | + + + + + + | Hepatitis B | Non Reactive | Non Reactive | [facility] | | | Surface Ag | | | [facility] | | | | | | [facility]ORE | | | | | | LABORATORY | | + + + + + + | Hepatitis B | Not Indicated | Non Reactive | [facility] | | | Surface | | | [facility] | | | Ag, Confirm | | | CORE | | | | | | LABORATORY | | + + + + + + | Hep B | See CommentComment: | | [facility] | | | Interp | Interpretation of | | [facility] | | | | Hepatitis B PanelTest | | CORE | | | | Results | | LABORATORY | | | | Interpretationxxxxxxxx | | | | | | xxxxxxxxxxxxxxxxxxxxxxxx | | | | | | xxxxxxxxxxxxxxxxxxxxxxxx | | | | | | xxxxxxxxHBsAg | | | | | | = Non-Reactive | | | | | | | | | | | | Interp | | | | | | =Susceptibleanti-HBC | | | | | | = Non-Reactive | | | | | | anti-HBs = | | | | | | Non-Reactivexxxxxxxxxxxx | | | | | | xxxxxxxxxxxxxxxxxxxxxxxx | | | | | | xxxxxxxxxxxxxxxxxxxxxxxx | | | | | | xxxx HBsAg = | | | | | | Non-Reactive | | | | | | Interp = | | | | | | Immune due to natural | | | | | | infectionanti-HBc | | | | | | = Reactiveanti-HBs | | | | | | = | | | | | | Reactivexxxxxxxxxxxxxxxx | | | | | | xxxxxxxxxxxxxxxxxxxxxxxx | | | | | | xxxxxxxxxxxxxxxxxxxxxxxx | | | | | | HBsAg = | | | | | | Non-Reactive | | | | | | Interp = | | | | | | Immune due to heptatitis | | | | | | B vaccinationanti-HBc | | | | | | = | | | | | | Xor-Rigytuyexmlz-ZQn | | | | | | = | | | | | | Reactivexxxxxxxxxxxxxxxx | | | | | | xxxxxxxxxxxxxxxxxxxxxxxx | | | | | | xxxxxxxxxxxxxxxxxxxxxxxx | | | | | | HBsAg = | | | | | | Reactive | | | | | | Interp = | | | | | | Acutely infectedanti-HBc | | | | | | = ReactiveIgM | | | | | | anti-HBc = | | | | | | Reactiveanti-HBs = | | | | | | | | | | | | Non-Reactivexxxxxxxxxxxx | | | | | | xxxxxxxxxxxxxxxxxxxxxxxx | | | | | | xxxxxxxxxxxxxxxxxxxxxxxx | | | | | | xxxxHbsAg = | | | | | | Reactive | | | | | | Interp | | | | | | = Chronically | | | | | | infectedanti-HBc = | | | | | | ReactiveIgM anti-HBc = | | | | | | Vum-Cndzsohyynch-NAp | | | | | | = | | | | | | Non-Reactivexxxxxxxxxxxx | | | | | | xxxxxxxxxxxxxxxxxxxxxxxx | | | | | | xxxxxxxxxxxxxxxxxxxxxxxx | | | | | | xxxxHBsAg = | | | | | | Non-Reactive | | | | | | Interp = | | | | | | Interpretation unclear; | | | | | | four | | | | | | possibilities:anti-HBc | | | | | | = Reactive | | | | | | 1. Resolved infection | | | | | | (most common)anti-HBs | | | | | | = Non-Reactive | | | | | | 2. False-positive | | | | | | anti-Hbc, thus | | | | | | susceptible. | | | | | | | | | | | | 3. "Low level" | | | | | | Chronic infection. | | | | | | | | | | | | 4. Resolving | | | | | | acute | | | | | | infection.xxxxxxxxxxxxxx | | | | | | xxxxxxxxxxxxxxxxxxxxxxxx | | | | | | xxxxxxxxxxxxxxxxxxxxxxxx | | | | | | xx | | | | + + + + + + + + | Specimen | + + | Blood specimen | | (specimen) | + + + + + + + | Performing | Address | City/State/Zipcode | Phone Number | | Organization | | | | + + + + + | [facility] | [address] [place] [address] [place] | [place] [address] | [phone] | | [facility] | | | | | LABORATORY | | | | + + + + + ABO Rh (07/20/2013 11:28 AM PST) + +-------+ + + + | Component | Value | Ref Range | Performed | Pathologist | | | | | At | Signature | + +-------+ + + + | ABO Rh | A POS | | [facility] | | | | [...] + + | [facility] | [address] | [place] [address] | [phone] | | [facility] | | | | | LABORATORY | | | | + + + + + Rapid Plasma ReagHai amos (07/20/2013 11:28 AM PST) + + + + + + | Component | Value | Ref Range | Performed | Pathologist | | | | | At | Signature | + + + + + + | Treponema | Non-Reactive | Non-Reactive | [facility] | | | Pallidum Ab | | | [facility] | | | RPRHai | | | CORE | | | | | | LABORATORY | | + + + + + + + + | Specimen | + + | Blood specimen | | (specimen) | + + + + + + + | Performing | Address | City/State/Zipcode | Phone Number | | Organization | | | | + + + + + | [facility] | [address] [place] [address] NE | [place] [address] | [phone] | | [facility] | | | | | LABORATORY | | | | + + + + + Rubella Ab, IgG (07/20/2013 11:28 AM PST) + + + + + + | Component | Value | Ref Range | Performed | Pathologist | | | | | At | Signature | + + + + + + | Rubella IgG | Equivocal | | [facility] | | | Quant | (Indeterminant) | | [facility] | | | Interp | | | CORE | | | | | | LABORATORY | | + + + + + + | Rubella IgG | 8 | IU/mL | [facility] | | | Ab | | | [facility] | | [...] + + | [facility] | [address] | [place] [address] | [phone] | | [facility] | | | | | LABORATORY | | | | + + + + + CBC with Differential (07/20/2013 11:28 AM PST) + +---------+ + + + | Component | Value | Ref Range | Performed | Pathologist | | | | | At | Signature | + +---------+ + + + | WBC | 9.7 | 3.8 - 11.0 K/uL | [facility] | | | | | | [facility] | | | | | | [facility]ORE | | | | | | LABORATORY | | + +---------+ + + + | RBC | 3.99 | 3.70 - 5.10 | [facility] | | | | | M/uL | [facility] | | | | | | CORE | | | | | | LABORATORY | | + +---------+ + + + | Hemoglobin | 12.8 | 11.3 - 15.5 | [facility] | | | | | g/dL | [facility] | | | | | | CORE | | | | | | LABORATORY | | + +---------+ + + + | Hematocrit | 37.4 | 34.0 - 46.0 % | [facility] | | | | | | [facility] | | | | | | [facility]ORE | | | | | | LABORATORY | | + +---------+ + + + | MCV | 93.9 | 80.0 - 96.0 fL | [facility] | | | | | | [facility] | | | | | | CORE | | | | | | LABORATORY | | + +---------+ + + + | MCH | 32.0 | 27.0 - 34.0 pg | [facility] | | | | | | [facility] | | | | | | CORE | | | | | | LABORATORY | | + +---------+ + + + | MCHC | 34.1 | 32.0 - 35.5 | [facility] | | | | | g/dL | [facility] | | | | | | CORE | | | | | | LABORATORY | | + +---------+ + + + | RDW-CV | 13.8 | 11.0 - 15.5 % | [facility] | | | | | | [facility] | | | | | | CORE | | | | | | LABORATORY | | + +---------+ + + + | Platelet | 266 | 150 - 400 K/uL | [facility] | | | Count | | | [facility] | | | | | | CORE | | | | | | LABORATORY | | + +---------+ + + + | MPV | 8.1 | 7.4 - 10.3 fL | [facility] | | | | | | [facility] | | | | | | CORE | | | | | | LABORATORY | | + +---------+ + + + | % nRBC | 0 | /100 WBC | [facility] | | | | | | [facility] | | | | | | CORE | | | | | | LABORATORY | | + +---------+ + + + | % | 79 | % | [facility] | | | Neutrophils | | | [facility] | | | | | | CORE | | | | | | LABORATORY | | + +---------+ + + + | % | 17 | % | [facility] | | | Lymphocytes | | | [facility] | | | | | | CORE | | | | | | LABORATORY | | + +---------+ + + + | % Monocytes | 4 | % | [facility] | | | | | | [facility] | | | | | | [facility]ORE | | | | | | LABORATORY | | + +---------+ + + + | % | 0 | % | [facility] | | | Eosinophils | | | [facility] | | | | | | CORE | | | | | | LABORATORY | | + +---------+ + + + | % Basophils | 0 | % | [facility] | | | | | | [facility] | | | | | | CORE | | | | | | LABORATORY | | + +---------+ + + + | Absolute | 7.7 (H) | 1.9 - 7.4 K/uL | [facility] | | | Neutrophils | | | [facility] | | | | | | CORE | | | | | | LABORATORY | | + +---------+ + + + | Absolute | 1.6 | 1.0 - 3.9 K/uL | [facility] | | | Lymphocytes | | | [facility] | | | | | | CORE | | | | | | LABORATORY | | + +---------+ + + + | Absolute | 0.4 | 0.0 - 0.8 K/uL | [facility] | | | Monocytes | | | [facility] | | | | | | CORE | | | | | | LABORATORY | | + +---------+ + + + | Absolute | 0.0 | 0.0 - 0.5 K/uL | [facility] | | | Eosinophils | | | [facility] | | | | | | [facility]ORE | | | | | | LABORATORY | | + +---------+ + + + | Absolute | 0.0 | 0.0 - 0.1 K/uL | [facility] | | | Basophils | | | [facility] | | | | | | CORE | | | | | | LABORATORY | | + +---------+ + + + | Manual Diff | No | | [facility] | | | Performed | | | [facility] | | | | | | [facility]ORE | | | | | | LABORATORY | | + +---------+ + + + + + | Specimen | + + | Blood specimen | | (specimen) | + + + + + + + | Performing | Address | City/State/Zipcode | Phone Number | | Organization | | | | + + + + + | [facility] | [address] | [place] [address] | [phone] | | [facility] | | | | | LABORATORY | | | | + + + + + HCG, Urine, Qual (07/20/2013 11:28 AM PST) [...] | + + + + + | [facility] | [address] [place] [address] [place] | [place] [address] | [phone] | | [facility] | | | [...] + | [facility] | [address] | [place] [address] | [phone] | | [facility] | | | [...] + + | [facility] | [address] [place] [address] | [place] [address] | [phone] | | [facility] | | | | | LABORATORY | | | | + + + + + Panel (07/20/2013 11:28 AM PST) + + | Specimen | + + | | + + documented in this encounter Visit Diagnoses + + | Diagnosis | + + | Supervision of other normal | + + documented in this encounter
--- OUTSIDE RECORDS SUMMARY | ~2019-09-20 | XMS | Encounter Summary ---
Demographics + + + | Address | [address] | | | [place] [address] | + + + | Home Phone | | + + + | Preferred Language | Unknown | + + + | Marital Status | Single | + + + | Confucianism Affiliation | 1013 | + + + | Race | Unknown | + + + | Ethnic Group | Unknown | + + + Author + + + | Author | [facility] | | | and [place] | + + + | Organization | [facility] | | | and [...] Team Providers + +------+ + | Care Silk Screen Printer Helper Name | Role | Phone | + +------+ + | Camelia Alvarenga MD | PCP | | + +------+ + Encounter Details +--------+ + + + + | Date | Type | Department | Care Team | Description | +--------+ + + + + | 11/26/ | Hospital | [facility] | Dieudonne Chen, | | | 2010 | Encounter | [facility] | MD [address] | | | | | [address] [place], [place] | | | | [address] | [address] | | | | | [place], [place] | | | | | | [address] | | | | | | [phone] | | | +--------+ + + + [...] | + +--------+ + + + | XR CERVICAL SPINE 4 | | 11/26/2010 | | Results for this | | OR 5 VWS | | 6:49 PM | | procedure are in the | | | | PDT | | results section. | + +--------+ + + + documented in this encounter Results XR Cervical Spine 4 + Vw (11/26/2010 6:49 PM PDT) + + | Specimen | + + | | + + + + + | Impressions | Performed At | + + + | IMPRESSION: No obvious acute c-spine fracture is seen. | [facility] | | Reversal of c-spine lordotic curve. | | | Dictated By: Edward Evangelista M.D. 11/27/2010 12:47:41 PM | | + + + + + + | Narrative | Performed At | + + + | CERVICAL SPINE 4+VIEWS DATE OF EXAM: 11/26/2010 INDICATION: | [facility] | | -trauma FINDINGS: There is reversal of c-spine lordotic | | | curve. No obvious acute c-spine fracture is seen. The odontoid | | | process and pain joint space appear unremarkable. There is mild | | | adenoid tissue prominence. The C1-C2 and the C7-T1 alignment are | | | maintained. JUMPING BRANCH EXAM NUMBER: [id number] CERVICAL SPINE 4+VIEWS | | | [id number] | | + + + + + | Procedure Note | + + | Ron Rad Conversion - 10/13/2011 4:46 PM PST CERVICAL SPINE 4+VIEWS | | | | DATE OF EXAM: 11/26/2010 | | | | INDICATION: -trauma | | | | FINDINGS: There is reversal of c-spine lordotic curve. No | | obvious acute c-spine fracture is seen. The odontoid process | | and pain joint space appear unremarkable. There is mild adenoid | | tissue prominence. | | | | The C1-C2 and the C7-T1 alignment are maintained. | | JUMPING BRANCH EXAM NUMBER: [id number] CERVICAL SPINE 4+VIEWS [id number] | | IMPRESSION: | | IMPRESSION: No obvious acute c-spine fracture is seen. | | | | Reversal of c-spine lordotic curve. | | | | Dictated By: Edward Evangelista M.D. 11/27/2010 12:47:41 PM | + + + +---------+ + + | Performing | Address | City/State/Zipcode | Phone Number | | Organization | | | | + +---------+ + + | [facility] | | | | + +---------+ + + documented in this encounter Visit Diagnoses Not on filedocumented in this encounter"
--- OUTSIDE RECORDS SUMMARY | ~2019-09-20 | XMS | Encounter Summary ---
Demographics + + + | Address | [address] | | | [place] [address] | + + + | Home Phone | | + + + | Preferred Language | Unknown | + + + | Marital Status | Single | + + + | Methodist Affiliation | 1013 | + + + [...] Team Providers + +------+ + | Care Welt Sole Layer Name | Role | Phone | + +------+ + | Gordon Rivero MD | PCP | | + +------+ + Encounter Details +--------+ + + + + | Date | Type | Department | Care Team | Description | +--------+ + + + + | 09/18/ | Hospital | [facility] | Anastacia La MD | Supervision of other | | 2013 | Encounter | [facility] | [address] | normal ; | | | | CLINICAL LAB SERVS | [place] [address] | Polysubstance abuse | | | | [address] | [phone] | | | | | [place], [place] | | | | | | [address] | | | | | | [phone] | | | +--------+ + + + [...] | + + + + + | [facility] | [address] [place] [address] NE | [place] [address] | [phone] | | [facility] | | | [...] + + | [facility] | [address] | [place] [address] | [phone] | | [facility] | | | [...] + + | [facility] | [address] | [place] [address] | [phone] | | [facility] | | | [...] + + | [facility] | [address] [facility] | [place] [address] | [phone] | | [facility] | | | [...]
--- OUTSIDE RECORDS SUMMARY | ~2019-09-20 | XMS | Encounter Summary ---
Demographics + + + | Address | [address] | | | [place] [address] | + + + | Home Phone [...] Team Providers + +------+ + | Care Utility Maintenance Worker Name | Role | Phone | + [...] | | | | | | | [place] [address] | | | | | | | Phone: | | | | | | | [phone] | | | | | | | Fax: | | | | | | | [phone] | +--------+--------+ + + + + Encounter Details +--------+ + + + + | Date | Type | Department | Care Team | Description | +--------+ + + + + | 10/13/ | Anesthesia | [facility] | Jose Mcwilliams, | | | 2013 | Event | [facility] | [address] | | | | | AND DELIVERY IP | [place] | | | | | [address] | [id number] | | | | | [place] | | | | | | [address] | Perry Lopez, | | | | | [phone] | [address] | | | | | | [place] | | | | | | [address] | | | | | | | [...]
--- OUTSIDE RECORDS SUMMARY | ~2019-09-20 | XMS | Encounter Summary ---
Demographics + + + | Address | [address] | | | [place] [address] | + + + | Home Phone | | + + + | Preferred Language | Unknown | + + + | Marital Status | Single | + + + | Buddhist Affiliation | 1013 | + + + [...] Team Providers + +------+ + | Care Stripping Cutter And Winder Name | Role | Phone | + +------+ + | Gordon Rivero MD | PCP | | + +------+ + Reason for Visit +---------+ + | Reason | Comments | +---------+ + | Abscess | possible abscess tooth | +---------+ + Encounter Details +--------+ + + + + | Date | Type | Department | Care Team | Description | +--------+ + + + + | 08/15/ | Telephone | [facility] | Gladis Ellison, | Abscess (possible | | 2012 | | [facility] | RN [address] [facility] | abscess tooth) | | | | [facility] | [place], [place] | | | | | [facility] | [address] | | | | | [place] | | | | | | [address] | | | | | | [phone] | | | +--------+ + + + [...]
--- OUTSIDE RECORDS SUMMARY | ~2019-09-20 | XMS | Encounter Summary ---
Demographics + + + | Address | [address] | | | [place] [address] | + + + | Home Phone [...] Team Providers + +------+ + | Care Chief Mechanical Officer Name | Role | Phone | + +------+ + | Adelita Pierce | PCP | | + +------+ + Encounter Details +--------+ + + + + | Date | Type | Department | Care Team | Description | +--------+ + + + + | 01/11/ | Hospital | [facility] | SOLE, DEFAULT | | | 2009 - | Encounter | [facility] | | | | | | CENTER [address] | | | | [address] | [address] | | | | 2009 | | [place], [place] | | | | | | [address] | | | | | | [phone] | | | +--------+ + + + [...]
--- OUTSIDE RECORDS SUMMARY | ~2019-09-20 | XMS | Encounter Summary ---
Demographics + + + | Address | [address] | | | [place] [address] | + + + | Home Phone | | + + + | Preferred Language | Unknown | + + + | Marital Status | Single | + + + | Sabianist Affiliation | 1013 | + + + [...] Team Providers + +------+ + | Care Sound Controller Name | Role | Phone | + +------+ + | Wesley Dinero | PCP | | | SEO EXECUTIVE | | | + +------+ + Reason for Visit + + + | Reason | Comments | + + + | Oral Swelling | | + + + Encounter Details +--------+ + + + + | Date | Type | Department | Care Team | Description | +--------+ + + + + | 01/24/ | Emergency | [facility] | Alicia Hagan, | Acute pharyngitis; | | 2011 | | [facility] | [place] [address] [facility] | UTI (urinary tract | | | | EMERGENCY CENTER | [address] | infection); Perineal | | | | [address] | [place], [place] | folliculitis | | | | [place], [place] | [address] | | | | | [address] | [phone] | | | | | [phone] | | | +--------+ + + + [...] sent through Care Everywhere.PHARYNGITIS, ST REP (PRESUMED) (SPANISH)documented in this encounter Medications at Time of [...] | + + + + + | [facility] | [address] [facility] [address] | [place] [address] | [phone] | | [facility] | | | [...] | + + + + + | [facility] | [address] [place] [address] NE | [place] [address] | [phone] | | [facility] | | | [...] | + + + + + | [facility] | [address] [place] [address] [place] | [place] [address] | [phone] | | [facility] | | | [...] | [facility] | [address] [facility] | [place] [address] | [phone] | | [facility] | | | [...]
--- OUTSIDE RECORDS SUMMARY | ~2019-09-20 | XMS | Encounter Summary ---
Demographics + + + | Address | [address] | | | [place] [address] | + + + | Home Phone | | + + + | Preferred Language | Unknown | + + + | Marital Status | Single | + + + | Hinduism Affiliation | 1013 | + + + | Race | Unknown | + + + | Ethnic Group | Unknown | + + + Author + + + | Author | [facility] | | | and [place]ana | + + + | Organization | [facility] | | | [...] Team Providers + +------+ + | Care As[employer] Analyst Name | Role | Phone | + +------+ + | Gordon Rivero MD | PCP | | + +------+ + Encounter Details +--------+ + + + + | Date | Type | Department | Care Team | Description | +--------+ + + + + | 10/10/ | Hospital | [facility] | Koffi Sinha | | | 2013 | Encounter | [facility] | DO Rufina Summers | | | | | CLINICAL LAB SERVS | [address] | | | | | [address] | [place] [address] | | | | | [place], [place] | [phone] | | | | | [address] | | | | | | [phone] | | | +--------+ + + + [...] + + + | [facility] | [address] | [place] [address] | [phone] | | [facility] | | | | | LABORATORY | | | | + + + + + documented in this encounter Visit Diagnoses Not on filedocumented in this encounter"
--- OUTSIDE RECORDS SUMMARY | ~2019-09-20 | XMS | Encounter Summary ---
Demographics + + + | Address | [address] | | | [place] [address] | + + + | Home Phone | | + + + | Preferred Language | Unknown | + + + | Marital Status | Single | + + + | Orthodox Affiliation | 1013 | + + + | Race | Unknown | + + + | Ethnic Group | Unknown | + + + Author + + + | Author | [facility] | | | and Jeffana | + + + | Organization | [facility] | | [...] Team Providers + +------+ + | Care Cullet Washer Name | Role | Phone | + [...] + + | 09/22/ | Documentati | [facility] | Gordon Rivero MD | Records Request | | 2013 | on | [facility] | [address] | (primary care | | | | [address] | [place] [address] | records received) | | | | [place] | [phone] | | | | | [place], [place] | | | | | | [address] | | | | | | [phone] | | | +--------+ + + + [...] MD - 09/22/2013 7:41 AM PSTDocuments Received [facility] Records Sent for scanning Briefly: 06/06/10 started [...]
--- OUTSIDE RECORDS SUMMARY | ~2019-09-20 | XMS | Encounter Summary ---
Demographics + + + | Address | [address] | | | [place] [address] | + + + | Home Phone | | + + + | Preferred Language | Unknown | + + + | Marital Status | Single | + + + | Jehovah'S Witness Affiliation | 1013 | + + + [...] Team Providers + +------+ + | Care Bulb Weeder Name | Role | Phone | + +------+ + | Adelita Pierce | PCP | | + +------+ + Encounter Details +--------+ + + + + | Date | Type | Department | Care Team | Description | +--------+ + + + + | 01/11/ | Hospital | [facility] | SOLE, DEFAULT | | | 2009 - | Encounter | [facility] | | | | | | CENTER [address] | | | | [address] | [address] | | | | 2009 | | [place], [place] | | | | | | [address] | | | | | | [phone] | | | +--------+ + + + [...]
--- OUTSIDE RECORDS SUMMARY | ~2019-09-20 | XMS | Encounter Summary ---
Demographics + + + | Address | [address] | | | [place] [address] | + + + | Home Phone | | + + + | Preferred Language | Unknown | + + + | Marital Status | Single | + + + | Baptism Affiliation | 1013 | + + + | Race | Unknown | + + + | Ethnic Group | Unknown | + + + Author + + + | Author | [facility] | | | and Jeffana | + + + | Organization | [facility] | [...] Team Providers + +------+ + | Care Pan Puller Name | Role | Phone | + [...] [address] | | | | | | [address] | [place] | | | | | | Phone: | [address] | | | | | | [phone] | Phone: | | | | | | Fax: | [phone] | | | | | | [phone] | Fax: | | | | | | | [phone] | +--------+ + + + + + [...] Abnormal Ultrasound | | 2012 | | [facility] | [address] | | | | | PROVIDER MED SURG | [place] [address] | | | | | [address] [place] | [phone] | | | | | [place], [place] | | | | | | [address] | | | | | | [phone] | | | +--------+ + + + [...]
--- OUTSIDE RECORDS SUMMARY | ~2019-09-20 | XMS | Encounter Summary ---
Demographics + + + | Address | [address] | | | [place] [address] | + + + | Home Phone | | + + + | Preferred Language | Unknown | + + + | Marital Status | Single | + + + | Voodoo Affiliation | 1013 | + + + | Race | Unknown | + + + | Ethnic Group | Unknown | + + + Author + + + | Author | [facility] | | | and Jeffana | + + + | Organization | [facility] | | | [...] Team Providers + +------+ + | Care Seasoning Mixer Name | Role | Phone | + +------+ + | Gordon Rivero MD | PCP | | + +------+ + Reason for Visit + + + | Reason | Comments | + + + | Drug Screen | opiate positive | + + + Encounter Details +--------+ + + + + | Date | Type | Department | Care Team | Description | +--------+ + + + + | 09/27/ | Telephone | [facility] | Gordon Rivero MD | Drug Screen (opiate | | 2013 | | [facility] | [address] | positive) | | | | [address] | [place] [address] | | | | | [place] | [phone] | | | | | [place] | | | | | | [address] | | | | | | [phone] | | | +--------+ + + + [...] + | Diagnosis | + + | Polysubstance abuse (HCC) - Primary Other, mixed, or unspecified nondependent drug | | abuse, unspecified | + + | Supervision of other normal | + + documented in this encounter"
--- OUTSIDE RECORDS SUMMARY | ~2019-09-20 | XMS | Encounter Summary ---
Demographics + + + | Address | [address] | | | [place] [address] | + + + | Home Phone [...] + + + | Author | [facility] | | | and [place]ana | + + + | Organization | [facility] | | [...] Team Providers + +------+ + | Care Tandem Operator Name | Role | Phone | [...] + + | 09/27/ | Telephone | [facility] | Gordon Rivero MD | Drug Screen (opiate | | 2013 | | [facility] | [address] | positive) | | | | [address] | [place] [address] | | | | | [place] | [phone] | | | | | [place] | | | | | | [address] | | | | | | [phone] | | | +--------+ + + + [...]
--- OUTSIDE RECORDS SUMMARY | ~2019-09-20 | XMS | Encounter Summary ---
Demographics + + + | Address | [address] | | | [place] [address] | + + + | Home Phone | | + + + | Preferred Language | Unknown | + + + | Marital Status | Single | + + + | Protestant Affiliation | 1013 | + + + | Race | Unknown | + + + | Ethnic Group | Unknown | + + + Author + + + | Author | [facility] | | | and Jeffana | + + + | Organization | [facility] | | | [...] Team Providers + +------+ + | Care Straddle Carrier Operator Name | Role | Phone | [...] + + | 08/18/ | Telephone | [facility] | Derrek, | Medication | | 2012 | | [facility] | BRAYAN Mahan | Management (OB pt; | | | | [address] | | wants ok to take | | | | [address] | | amoxicillin) | | | | [place] | | | | | | [address] | | | | | | [phone] | | | +--------+ + + + [...]
--- OUTSIDE RECORDS SUMMARY | ~2019-09-20 | XMS | Encounter Summary ---
Demographics + + + | Address | [address] | | | [place] [address] | + + + | Home Phone [...] Team Providers + +------+ + | Care It Specialist Name | Role | Phone | + +------+ + | Gordon Rivero MD | PCP | | + +------+ + Reason for Visit + + + | Reason | Comments | + + + | Medication Refill | needs meds prescribed a month ago called into new pharmacy | + + + Encounter Details +--------+--------+ + + + | Date | Type | Department | Care Team | Description | +--------+--------+ + + + | 08/28/ | Refill | [facility] | Teodora Jha, | Medication Refill | | 2012 | | [facility] | LAB TESTER | (needs meds | | | | [address] | | prescribed a month | | | | [address] | | ago called into new | | | | [place] | | pharmacy) | | | | [address] | | | | | | [phone] | | | +--------+--------+ + + + [...] Primary Unspecified asthma | + + | Constipation in Other current maternal conditions classifiable elsewhere, | | complicating , childbirth, or the puerperium, unspecified as to episode of care | + + | Supervision of other normal | + + documented in this encounter"
--- OUTSIDE RECORDS SUMMARY | ~2019-09-20 | XMS | Encounter Summary ---
Demographics + + + | Address | [address] | | | [place] [address] | + + + | Home Phone | | + + + | Preferred Language | Unknown | + + + | Marital Status | Single | + + + | Synagogue Affiliation | 1013 | + + + [...] Team Providers + +------+ + | Care Acid Cutter Name | Role | Phone | [...] + + | 08/15/ | Telephone | [facility] | Gladis Ellison, | Abscess (possible | | 2012 | | [facility] | RN [address] [facility] | abscess tooth) | | | | FAMILY MEDICINE [facility] | [place], [place] | | | | | [facility] | [address] | | | | | [place] | | | | | | [address] | | | | | | [phone] | | | +--------+ + + + [...]
--- OUTSIDE RECORDS SUMMARY | ~2019-09-20 | XMS | Encounter Summary ---
Demographics + + + | Address | [address] | | | [place] [address] | + + + | Home Phone [...] Team Providers + +------+ + | Care Demand Equipment Repairer Name | Role | Phone | + +------+ + | Gordon Rivero MD | PCP | | + +------+ + Encounter Details +--------+ + + + + | Date | Type | Department | Care Team | Description | +--------+ + + + + | 10/10/ | Hospital | [facility] | Koffi Sinha | Supervision of other | | 2013 | Encounter | [facility] | [address] | normal ; | | | | CLINICAL LAB SERVS | [address] | Polysubstance abuse | | | | [address] | [place] [address] | | | | | [place], [place] | [phone] | | | | | [address] | | | | | | [phone] | | | +--------+ + + + [...] + | [address] | [address] | [place] [address] | [phone] | | [place] | | | [...]
--- OUTSIDE RECORDS SUMMARY | ~2019-09-20 | XMS | Encounter Summary ---
Demographics + + + | Address | [address] | | | [place] [address] | + + + | Home Phone [...] Providers + +------+ + | Care Industrial Relations Officer Name | Role | Phone | + +------+ + | Gordon Rivero MD | PCP | | + +------+ + Reason for Visit + + + | Reason | Comments | + + + | Back Pain | | + + + Auth/Cert +--------+--------+ + + + + | Status | Reason | Specialty | Diagnoses / | Referred By | Referred To | | | | | Procedures | Contact | Contact | +--------+--------+ + + + + | Closed | | | Diagnoses | | | | | | | | | | | | | | contractions | | | | | | | Fe2013 | | | +--------+--------+ + + + + Encounter Details +--------+ + + + + | Date | Type | Department | Care Team | Description | +--------+ + + + + | 09/14/ | Emergency | [facility] | Koffi Sinha | Supervision of other | | 2013 | | [facility] | [address] | normal | | | | AND DELIVERY IP | [address] | (Primary Dx) | | | | [address] | [place] [address] | | | | | [place], [place] | [phone] | | | | | [address] | | | | | | [phone] | | | +--------+ + + + [...] + + + | Blood Pressure | 117/76 | 09/14/2013 8:48 PM | | | | | PST | | + + + + + | Pulse | 105 | 09/14/2013 8:49 PM | | | | | PST | | + + + + + | Temperature | 36.4 C (97.5 F) | 09/14/2013 8:44 PM | | | | | PST | | + + + + + | Respiratory Rate | 20 | 09/14/2013 8:44 PM | | | | | PST | | + + + + + | Oxygen Saturation | 97% | 09/14/2013 8:49 PM | | | | | PST | | + + + + + | Inhaled Oxygen | - | - | | | Concentration | | | | + + + + + | Weight | 86.6 kg (191 lb) | 09/14/2013 8:46 PM | | | | | PST | | + + + + + | Height | 167.6 cm (5' 6") | 09/14/2013 8:46 PM | | | | | PST | | + + + + + | Body Mass Index | 30.83 | 09/14/2013 8:46 PM | | | | | PST | | + + + + + documented in this encounter Discharge Instructions Instructions Kathy Negron RN - 09/14/2013Formatting of this note might be different from t jake original. Labor and Childbirth: Active Labor During active labor, your contractions will be stronger and more rhythmic than with early l abor. They peak and subside like waves. They may occur 2 5 minutes apart and last about 45 seconds. This part of labor can be hard work. But it is often shorter than early labor. Whe n you reach active labor, exams and tests will be done to see how you and your baby are doin g. Your cervix may dilate 4 8 centimeters during the first part of active labor. Evaluating You and Your Baby An exam tells how you and your baby are responding to contractions. Your blood pressure, te mperature, and pulse will be checked. A blood or urine sample may also be taken. A mon itor will be used to check your baby s heart rate. Sometimes an IV (intravenous) line is s tarted to give you medication and fluids. Moving Ahead with Labor You may now feel contractions in the whole abdomen, instead of just the lower part (like du ring early labor). If your amniotic sac has not broken already, it may break now. Or, it may be broken for you. To help your baby descend, change position often. Walking or sitting in a rocking chair or recliner may help. You may find it hard to relax even though you are tire d. You may also be less interested in talking than you were earlier. If you re having anes thesia, it will be given now. Special Issues During Labor If labor doesn t progress well or a problem arises, a may be needed. But certain steps may be taken first to help you avoid a : If your cervix isn t dilating, a medication called oxytocin may be used to increase th e effectiveness of contractions. If monitoring shows your baby isn t getting enough oxygen, shifting your body po sition may help. You may also be given oxygen through a mask. If you have preeclampsia (a condition that results in high blood pressure, swelling, and other symptoms), you will be given medications by IV. You may also be told to lie on your l eft side. Responding to Contractions During contractions, try to stay relaxed. Tense muscles use more oxygen, eat up your body s energy, and increase pain. Use the breathing and relaxation techniques you may have learn ed. And let your support person know how he or she can help. If you ve had problems during a previous , focus on the present. Keep in mind that no two births are the same. Support Person s Note Have the mother walk or change positions at least once an hour. This improves circulatio n and helps the baby descend. Keep reminding the mother to breathe and relax through each contraction. Reassure her. Try to keep her from getting anxious or overstressed. Take care of yourself. Take a short break to eat or go to the bathroom when you need to. Rest when the mother does. You ll both benefit. [facility], [address] [place] [address], [place] [address]. All rights reserve d. This information is not intended as a substitute for professional medical care. Always fo llow your healthcare professional's instructi Premature Labor Premature Labor (also called Pre-term labor ) is when you start to have symptoms of la bor before 37 weeks of (3 weeks before your due date). Premature labor can lead to premature delivery. Babies need at least 37 weeks of for all the organs to develo p normally. The earlier the delivery, the greater the danger to the baby. In most cases, the actual cause of pre-term labor is unknown. However if you have any of th e following conditions, you are at a higher risk: Smoking Alcohol or substance abuse High blood pressure Hyperthyroidism Diabetes Premature labor with other pregnancies Early rupture of the amniotic sac membranes Infection in the uterus Incompetent cervix Twin (or more) Contractions are the first sign of premature labor. Contractions are different from crampin g. Usually, a contraction is painful and the abdomen gets hard. It can last from a few secon ds to a few minutes. Some women may feel only a sense of pressure in the abdomen, thighs, re ctum or vagina. Some may feel only the hardening of the uterus without pain or pressure. Or, there may be a constant pain the lower back which spreads forward toward the abdomen. Premature labor can be treated with medicines and activity restrictions. If the condition i s treated early on, your baby will have a much better chance of avoiding a premature deliver y. HOME CARE: 1. Learn the signs of premature labor. 2. Don't smoke, drink alcohol or use other harmful substances. 3. Avoid stress and strenuous work. 4. Report any unusual symptoms to your doctor. Follow Up with your doctor or as advised by our staff. Get Prompt Medical Attention if any of the following occur: Four or more contractions in a one-hour period Gush or slow leaking of water from your vagina Any vaginal bleeding Decreased movement of your baby Change in vaginal discharge Something seems wrong, even if you don't know what it is [address] [place] [address]. All rights reserve d. This information is not intended as a substitute for professional medical care. Always fo llow your healthcare professional's instructions. ons. documented in this encounter Medications at Time [...] documented as of this encounter Progress Notes Kathy Negron, DANDY - 09/14/2013 10:16 PM PSTFormatting of this note might be different from t he original. Pt arrived or transferred to Emergency? If yes do not do E/M leveling Answer if questions Resources - Interventions Area for additional documentation Available points Points given f or this visit Arrived by Ambulance - arrival prep Yes ? 1 Cervical check (SVE sterile vag exam) documented on doc-flow record each time Number of SVE documented? 1x 2 Doppler check- documented in Doc-flow record 2 Enema Administration documented in Doc-flow record 1 Extremity Pulses or DTRs documented in Doc-flow record Pulses or DTRs? 1 1 Monitoring setup and processing 1 1 monitoring review by second staff or provider documented in antepartum testing area 1 1 Intra hospital transfer/transport (not EC) What department? 2 Lab order/processing each time Number of lab episodes ordered? 1x 1 Specimen collection all types (UA, cultures etc) each time Number of specimens collec alan? 1x 1 Medication, PO, rectal, vaginal topical Given? 1 Pulse Oximetry, respiratory evaluation 1 1 Rectal/Pelvic/Perineal exam (debbie. sterile speculum) Which exam? 2 ROM Check (Amnisure) Obtained? 1 Ultrasound order/processing each time Number of ultrasounds orders processed? 1x Additional staff used (transport readiness/ precip del) Number of staff? 1 Discharge instructions simple (rare) Rescheduling NST documented in discharge instructi on section 1 Discharge instructions complex- Instructions given on home self care for - do cumented in discharge instruction section 2 2 Discharge AMA Time? 1 Emotional or uncooperative patient How? 1 Language barrier Pt. Language: 1 Consult-construction worker/physician specialists/Psych- ordered - Consult type? 1 Fax-call prescriptions, hx supplies other institutions What type of fax: 1 demise emotional support/resources 2 OB Education documented in shift assessment in pt education sheet 1 Piercing removal: What piercing- 1 Reassessment after intervention or ambulation (meds given, labs ultrasound, shower) each ti me Type of intervention? 1x Repeat vital signs documented in doc flow record 1 1 Social service referral - ordered 2 Transport preparation to other hospital What hospital? 2 Incomplete nursing assessment (rapid del) 1 Complete nursing assessment. Documented in doc-flow report. 2 2 Total points: 13 Admit to Labor (time) Discharge home (time) ___2219 E/M Level 1 1 3 points E/M Level 2 4-6 points E/M Level 3 7-9 points E/M Level 4 10-11 points E/M Level 5 12 + points Kathy Molina RN - 10/2013 10:14 PM PSTPt discharged in stable condition at 2220 per amb with friend to car for home. Pt has dr duke and us scheduled to [place]. instr pt to keep appt. Pt given pre term [facility] instr with good understanding. 1 0:16 PM Kathy Molina RN - 09/14/2013 8:51 PM PSTPt [place] been on a train [place] 4 hrs. Efe sutherland back pain q45 min. Noted babe is hydrocephalic and pt anxious that babe is ok.Electronical ly signed by Kathy Negron RN at 09/14/2013 8:52 PM PSTdocumented in this encounter Plan of Treatment Not on filedocumented as of this encounter Procedures + +--------+ + + + | Procedure Name | Priori | Date/Time | Associated Diagnosis | Comments | | | ty | | | | + +--------+ + + + | URINALYSIS WITH | STAT | 09/14/2013 | | Results for this | | MICROSCOPIC WITH | | 9:45 PM | | procedure are in the | | CULTURE IF INDICATED | | PST | | results section. | + +--------+ + + + | CULTURE, URINE | Routin | 09/14/2013 | | Results for this | | | e | 9:45 PM | | procedure are in the | | | | PST | | results section. | + +--------+ + + + | UA DIPSTICK ONLY | Routin | 09/14/2013 | | Results for this | | | e | 8:33 PM | | procedure are in the | | | | PST | | results section. | + +--------+ + + + documented in this encounter Results Culture, Urine (09/14/2013 9:45 PM PST) + + + + + + | Component | Value | Ref Range | Performed | Pathologist | | | | | At | Signature | + + + + + + | Final | No Growth at 2 Days. | | [facility] | | | Result | | | [facility] | | [...] + | [facility] | [address] | [place] [address] | [phone] | | [facility] | | | | | LABORATORY | | | | + + + + + Urinalysis with Microscopic with Culture if Indicated (09/14/2013 9:45 PM PST) + + + + + + | Component | Value | Ref Range | Performed | Pathologist | | | | | At | Signature | + + + + + + | Glucose, | Negative | Negative mg/dL | [facility] | | | Urine | | | [facility] | | | | | | CORE | | | | | | LABORATORY | | + + + + + + | Protein, | Negative | Negative mg/dL | [facility] | | | Urine | | | [facility] | | | | | | CORE | | | | | | LABORATORY | | + + + + + + | Bilirubin, | Negative | Negative | [facility] | | | Urine | | | [facility] | | | | | | CORE | | | | | | LABORATORY | | + + + + + + | Urobilinoge | 0.2-1.0 | 0.0 - 1.9 mg/dL | [facility] | | | n, Urine | | | [facility] | | | | | | [facility]ORE | | | | | | LABORATORY | | + + + + + + | pH, Urine | 6.5 | 5.0 - 7.5 | [facility] | | | | | | [facility] | | | | | | [facility]ORE | | | | | | LABORATORY | | + + + + + + | Blood, | Negative | Negative | [facility] | | | Urine | | | [facility] | | | | | | [facility]ORE | | | | | | LABORATORY | | + + + + + + | Ketones, | Negative | Negative mg/dL | [facility] | | | Urine | | | [facility] | | | | | | CORE | | | | | | LABORATORY | | + + + + + + | Nitrite, | Negative | Negative | [facility] | | | Urine | | | [facility] | | | | | | CORE | | | | | | LABORATORY | | + + + + + + | Leukocyte | Small (A) | Negative | [facility] | | | Esterase, | | | [facility] | | | Urine | | | CORE | | | | | | LABORATORY | | + + + + + + | Clarity | Clear | | [facility] | | | | | | [facility] | | | | | | CORE | | | | | | LABORATORY | | + + + + + + | Specific | 1.009 | 1.001 - 1.030 | [facility] | | | [place] | | | [facility] | | | | | | CORE | | | | | | LABORATORY | | + + + + + + | Color, | Yellow | | [facility] | | | Urine | | | [facility] | | | | | | CORE | | | | | | LABORATORY | | + + + + + + | RBC UA | <1 | 0 - 5 /hpf | [facility] | | | | | | [facility] | | | | | | [facility]ORE | | | | | | LABORATORY | | + + + + + + | WBC UA | 2 | 0 - 5 /hpf | [facility] | | | | | | [facility] | | | | | | CORE | | | | | | LABORATORY | | + + + + + + | SQUAMOUS | 4 (H) | 0 - 2 /hpf | [facility] | | | EPITHELIAL | | | [facility] | | | UA | | | CORE | | | | | | LABORATORY | | + + + + + + | MUCUS UA | Trace | | [facility] | | | | [...] | + + + + + | [facility] | [address] [place] [address] NE | [place] [address] | [phone] | | [facility] | | | | | LABORATORY | | | | + + + + + UA dipstick only (09/14/2013 8:33 PM PST) + + + + + [...] + + | Specific | 1.020 | 1.001 - 1.030 | [facility] | | | [place], | | | [facility] | | [...] + + + | Blood, UA, | Negative | Negative Benjamin/uL | [facility] | | [...] + + | [facility] | [address] | [place] [address] | [phone] | | [facility] | | | | | LABORATORY | | | | + + + + + documented in this encounter Visit Diagnoses + + | Diagnosis | + + | Supervision of other normal - Primary | + + documented in this encounter
--- OUTSIDE RECORDS SUMMARY | ~2019-09-20 | XMS | Encounter Summary ---
Demographics + + + | Address | [address] | | | [place] [address] | + + + | Home Phone | | + + + | Preferred Language | Unknown | + + + | Marital Status | Single | + + + | Mu-Ism Affiliation | 1013 | + + + | Race | Unknown | + + + | Ethnic Group | Unknown | + + + Author + + + | Author | [facility] | | | and [place] | + + + | Organization | [facility] | | [...] Team Providers + +------+ + | Care Brazer Resistance Name | Role | Phone | + +------+ + | Gordon Rivero MD | PCP | | + +------+ + Encounter Details +--------+ + + + + | Date | Type | Department | Care Team | Description | +--------+ + + + + | 10/04/ | Hospital [facility] | Koffi Sinha | Supervision of other | | 2013 | Encounter | [facility] | DO [address] | normal ; | | | | CLINICAL LAB SERVS | [address] | Polysubstance abuse | | | | [address] | [place] [address] | | | | | [place], [place] | [phone] | | | | | [address] | | | | | | [phone] | | | +--------+ + + + [...] | DRUGS OF ABUSE, | Routin | 10/04/2013 | Supervision of | Results for this | | SCREEN, URINE | e | 12:00 PM | other normal | procedure are in [...] + | [address] | [address] | [place] [address] | [phone] | | [place] | | | [...]
--- OUTSIDE RECORDS SUMMARY | ~2019-09-20 | XMS | Encounter Summary ---
Demographics + + + | Address | [address] | | | [place] [address] | + + + | Home Phone | | + + + | Preferred Language | Unknown | + + + | Marital Status | Single | + + + | Scientologist Affiliation | 1013 | + + + | Race | Unknown | + + + | Ethnic Group | Unknown | + + + Author + + + | Author | [facility] | | | and [place] | + + + | Organization | [facility] | | | [...] Team Providers + +------+ + | Care Civil Preparedness Training Officer Name | Role | Phone | [...] + + | 07/20/ | Initial | [facility] | Gladis Ellison, | [place]: | | 2012 | | [address] [facility] | RN [address] | | | | | [address]ILY MED[address] | [place], [place] | | | | | [facility] | [address] | | | | | [place], [place] | | | | | | [address] | | | | | | [phone] | | | +--------+ + + + [...] was approx 01/21/13. She was seen at [facility] for vaginal spotting "few jeff hs ago" [...] (tomorrow). Pt is also informed [place] [facility] [place] ers with this . Pt declines [facility] signup, brochure given. documented in this encounter [...] | + + + + + | [facility] [address] | [address] | [place] [address] | [phone] | | [facility] | | | [...] + | [address] | [address] | [place] [address] | [phone] | | [facility] | | | [...] + + | [address] | [address] [place] [address] | [place] [address] | [phone] | | [facility] | | | [...]
--- OUTSIDE RECORDS SUMMARY | ~2019-09-20 | XMS | Encounter Summary ---
Demographics + + + | Address | [address] | | | [place] [address] | + + + | Home Phone [...] + | Author | [facility] | | | and [place] | + + + | Organization | [facility] | | | and [...] Team Providers + +------+ + | Care Coremaking Machine Setter Name | Role | Phone | + +------+ + | Gordon Rivero MD | PCP | | + +------+ + Encounter Details +--------+ + + + + | Date | Type | Department | Care Team | Description | +--------+ + + + + | 07/24/ | Hospital | [facility] | Pat, | Supervision of other | | 2013 | Encounter | [facility] | Jenna Spencer MD | normal | | | | [address] | [address] [facility] | | | | | [place], [place] | [place] [address] | | | | | [address] | [phone] | | | | | [phone] | | | +--------+ + + + [...] puffs into | 2 | 2 | 07/21/20 | | | HFA) 90 mcg/puff | the lungs every 6 | Inhaler | | 13 | 3 | | inhalerIndications: | hours as needed for | | | | | | Asthma | Wheezing. | | | | | + + + +---------+ + + | docusate sodium | Take 1-2 capsules by | 60 | 2 | 07/21/20 | | | (COLACE) 100 mg | mouth Daily. | capsule | | 13 | 3 | | capsuleIndications: | | | | | | | Constipation in | | | | | | | | | | | | | + + + +---------+ + + | metroNIDAZOLE | Take 1 tablet by | 14 | 0 | 07/21/20 | | | (FLAGYL) 500 MG | mouth every 12 hours | tablet | | 13 | 3 | | tabletIndications: | | | | | | | BV (bacterial | | | | | | | vaginosis) | | | | | | + + + +---------+ + + | | Take 1 tablet by | 30 | 0 | 07/21/20 | | | multivitamin | mouth Daily. | tablet | | 13 | 3 | | tabletIndications: | | | | [...] | + +--------+ + + + | US OB 14 + WEEKS | Routin | 07/24/2013 | Supervision of | Results for this | | SINGLE OR FIRST | e | 12:04 PM | other normal | procedure are in the | | GESTATION | | PST | | results section. | + +--------+ + + + documented in this encounter Results US OB 14 + [...] | Procedure Note | + + | Ron, Rad Results In - 07/24/2013 12:35 PM PST [...] + | MISCELLANEOUS LAB | | | [phone] | + +---------+ + + | MISCELANIOUS LAB | | | [phone] | + +---------+ + + documented in this encounter Visit Diagnoses + + | Diagnosis | + + | Supervision of other normal | + + documented in this encounter"
--- OUTSIDE RECORDS SUMMARY | ~2019-09-20 | XMS | Encounter Summary ---
Demographics + + + | Address | [address] | | | [place] [address] | + + + | Home Phone | | + + + | Preferred Language | Unknown | + + + | Marital Status | Single | + + + | Yazidism Affiliation | 1013 | + + + [...] Team Providers + +------+ + | Care Risk Control Product Liability Director Name | Role | Phone | + [...] 2013 | | [address] | SUPERVISOR RESPIRATORY | ( control ) | | | | [address] | | | | | | [place] | | | | | | [place] | | | | | | [address] | | | | | | [phone] | | | +--------+ + + + [...]
--- OUTSIDE RECORDS SUMMARY | ~2019-09-20 | XMS | Encounter Summary ---
Demographics + + + | Address | [address] | | | [place] [address] | + + + | Home Phone | | + + + | Preferred Language | Unknown | + + + | Marital Status | Single | + + + | Druze Affiliation | 1013 | + + + [...] Providers + +------+ + | Care Chief Human Resources Officer Name | Role | Phone | + +------+ + | Gordon Rivero MD | PCP | | + +------+ + Encounter Details +--------+ + + + + | Date | Type | Department | Care Team | Description | +--------+ + + + + | 10/04/ | Hospital | [facility] | Koffi Sinha | Supervision of other | | 2013 | Encounter | [facility] | DO [address] | normal ; | | | | CLINICAL LAB SERVS | [address] | Polysubstance abuse | | | | [address] | [place] [address] | | | | | [place], [place] | [phone] | | | | | [address] | | | | | | [phone] | | | +--------+ + + + [...] [address] | [address] | [place] [address] | [phone] | | [place] | | | [...]
--- OUTSIDE RECORDS SUMMARY | ~2019-09-20 | XMS | Encounter Summary ---
Demographics + + + | Address | [address] | | | [place] [address] | + + + | Home Phone | | + + + | Preferred Language | Unknown | + + + | Marital Status | Single | + + + | Hindu Affiliation | 1013 | + + + | Race | Unknown | + + + | Ethnic Group | Unknown | + + + Author + + + | Author | [facility] | | | and [place]ana | + + + | Organization | [facility] | | [...] Team Providers + +------+ + | Care Cloth Bleaching Range Tender Name | Role | Phone | + +------+ + | Gordon Rivero MD | PCP | | + +------+ + Reason for Visit + + + | Reason | Comments | + + + | Routine | 34+2 | | Visit | | + + + Encounter Details +--------+ + + + + | Date | Type | Department | Care Team | Description | +--------+ + + + + | 09/18/ | Routine | [facility] | Gordon Rivero MD | GA: 35w1d | | 2014 | | [address] [facility] | [address] | | | | | FAMILY [address] | [place] [address] | | | | | [place] | [phone] | | | | | [place] | | | | | | [address] | | | | | | [phone] | | | +--------+ + + + [...] + + + | Blood Pressure | 104/62 | 09/18/2013 10:12 AM | | | | | PST [...] + + + + | Weight | 91.3 kg (201 lb 3.2 | 09/18/2013 10:12 AM | | | | oz) | PST | | + + + + + | Height | - | - | | + + + + + | Body Mass Index | 32.47 | 09/14/2013 8:46 PM | | | | | PST | | + + + + + documented in this encounter Progress Notes Teodora Jha CMA - 09/18/2013 11:54 AM PSTPt was here to bee seen, Dr. Rivero was deli vering a baby, pt chose to R/S. Urine tox screen ordered per Dr. Rivero & pt labs also draw n today from previous appt. documented in this encounter Plan of Treatment [...] | + + + + + | [address] | [address] | [place] [address] | [phone] | | [place] | | | | | LABORATORY | | | | + + + + + documented in this encounter Visit Diagnoses + + | Diagnosis | + + | Supervision of other normal - Primary | + + documented in this encounter"
--- OUTSIDE RECORDS SUMMARY | ~2019-09-20 | XMS | Encounter Summary ---
Demographics + + + | Address | [address] | | | [place] [address] | + + + | Home Phone [...] | Author | [facility] | | | and [place] | + + + | Organization | [facility] | | [...] Team Providers + +------+ + | Care Journeyman Pipe Fitter Name | Role | Phone | + [...] + + | 02/22/ | Office | [facility] | Abundio Taveras MD [address] | Flank pain (Primary | | 2013 | Visit | [address] [facility] | [address] [facility] [address] | Dx); UTI (lower | | | | FAMILY MEDIC[address] | [place] [address] | urinary tract | | | | [facility] [address] | [phone] | infection); | | | | [place], [place] | | Menorrhagia | | | | [address] | | | | | | [phone] | | | +--------+---------+ + + + [...] swelling in the labia (outer vaginal area) 7473-1365 [facility], [address] [place] [address], [place] [address]. All rights reserve d. This information is [...] for moderate leukocyte esterase Trace blood Assessment: Jnaie Yoo is a 28 y.o. female with [...] | | Urine, POC | Rd [address] [facility] [address] | | CORE | | | |Performed by [facility] [address] [facility] [address] | | LABORA TORY | | + [...] + + | [address] | [address] | [place] [address] | [phone] | | [facility] | | | [...] 1.030 | P [facility] | | | [place] | | | S T [place] | [...] | | | | [place] [address] | | C ORE | | | |Performed by [facility] [address] [place] [address] | | L ABORATORY | | + + + +-- + + + + | Specimen | + + | Urine specimen | | (specimen) | + + + + + + + | Performing | Address | City/State/Zipcode | Phone Number | | Organization | | | | + + + + + | [address] | [address] [facility] [address] | [place] [address] | [phone] | | [facility] | | | [...]
--- OUTSIDE RECORDS SUMMARY | ~2019-09-20 | XMS | Encounter Summary ---
Demographics + + + | Address | [address] | | | [place] [address] | + + + | Home Phone [...] Team Providers + +------+ + | Care Manager Policy Name | Role | Phone | + [...] | | | [address] | [place] [address] | | | | | [place] | [phone] | | | | | [place] | | | | | | [address] | | | | | | [phone] | | | +--------+ + + + [...]
--- OUTSIDE RECORDS SUMMARY | ~2019-09-20 | XMS | Encounter Summary ---
Demographics + + + | Address | [address] | | | [place] [address] | + + + | Home Phone [...] + + + | Author | [facility] | | | and [place]ana | + + + | Organization | [facility] | | | and [...] Team Providers + +------+ + | Care Scallop Cutter Machine Name | Role | Phone | + +------+ + | Wesley Dinero | PCP | | | FOREIGN SERVICE OFFICER | | | + +------+ + Reason [...] + + | 01/04/ | Office | [facility] | Debi Michelle | UTI (lower urinary | | 2012 | Visit | [facility] [address] | [address] | tract infection) | | | | [facility] | [place], [place] | (Primary Dx); FLANK | | | | [place] | [address] | PAIN; Bronchitis | | | | [address] | | with bronchospasm | | | | [phone] | | | +--------+---------+ + + + [...] | 1.020 | | | | | [place], | | | | | | UA, [...]
--- OUTSIDE RECORDS SUMMARY | ~2019-09-20 | XMS | Encounter Summary ---
Demographics + + + | Address | [address] | | | [place] [address] | + + + | Home Phone | | + + + | Preferred Language | Unknown | + + + | Marital Status | Single | + + + | Restoration Affiliation | 1013 | + + + [...] Team Providers + +------+ + | Care Extension Service Advisor Name | Role | Phone | + [...] | | [address] | MD [address] | | | | | [address] | [place], | | | | | [place] | [place] [address] | | | | | [place] | [phone] | | | | | [address] | | | | | | [phone] | | | +--------+--------+ + + + [...]
--- OUTSIDE RECORDS SUMMARY | ~2019-09-20 | XMS | Encounter Summary ---
Demographics + + + | Address | [address] | | | [place] [address] | + + + | Home Phone | | + + + | Preferred Language | Unknown | + + + | Marital Status | Single | + + + | Religion Affiliation | 1013 | + + + | Race | Unknown | + + + | Ethnic Group | Unknown | + + + Author + + + | Author | [facility] | | | and [place]ana | + + + | Organization | [facility] | | [...] Team Providers + +------+ + | Care Auto Striper Name | Role | Phone | + [...] | | | | | in | [address] | | | | | | | Phone: | | | | | | | [phone] | | | | | | | Fax: | | | | | | | [phone] | | +--------+ + + + + + Encounter Details +--------+ + + + + | Date | Type | Department | Care Team | Description | +--------+ + + + + | 08/02/ | Orders Only | [facility] | Tiffany Gtz, | Abnormality of fetus | | 2013 | | [address] [facility] | [address] | (Primary Dx); | | | | [address]ILY [address] | [place], [place] | abnormality in | | | | [address] | [address] | | | | | [place], [place] | | | | | | [address] | | | | | | [phone] | | | +--------+ + + + [...] AM PSTResults received on US done at [facility]. Results placed in Dr. Rivero green folder.Elect ronically signed by Kalli Anglin CMA at 08/02/2013 11:22 AM Tiffany Lezama MD - 08/02/2013 8:57 [facility] AM for abnormal [...]
--- OUTSIDE RECORDS SUMMARY | ~2019-09-20 | XMS | Encounter Summary ---
Demographics + + + | Address | [address] | | | [place] [address] | + + + | Home Phone | | + + + | Preferred Language | Unknown | + + + | Marital Status | Single | + + + | Pentecostal Affiliation | 1013 | + + + | Race | Unknown | + + + | Ethnic Group | Unknown | + + + Author + + + | Author | [facility] | | | and [place]ana | + + + | Organization | [facility] | | | [...] Team Providers + +------+ + | Care Therapeutic Activities Services Worker Name | Role | Phone | [...] | | [address] | [place] [address] | | | | | [place] | [phone] | | | | | [place] | | | | | | [address] | | | | | | [phone] | | | +--------+ + + + [...] Gordon Rivero MD . She is at 31w3d weeks [...] possible hydrocephaly - has been referred to [facility] from [facility] - fu records Smoker- has cut back [...] insur ance issue. -- Saw MFM in [place] where they recommended f/u cardiac US at [facility] and f/u fet al brain MRI. Might consider shunt for hydrocephalus. She has f/u with MFM . -- No substance abuse, in supportive social environment. Financially stable on [employer], [employer], [employer], [employer] & living with friend. -- Smoking down to 1 cig/d. Fundal height, FHT, and vital signs are appropriate. Afebrile. Right lower jaw broken nathaniel th/crowns & mild erythema & edema without drainage. -- cerebral ventriculomegally: Requested [facility] records to confirm delivery and f/u plan . -- Dental abscess: does not look terrible; start amox as planned and f/u broken teeth postp artum as planned. -- Substance abuse: repeat UDScreen. -- Social: [facility] referral appears not to have been done, [...] for transfer of care (now living in [place]: Adelita THOMSON @ [facility]. -- ranitidine for heartburn. F/u 2 weeks [...] + + | [facility] | [address] | [place] [address] | [phone] | | [facility] | | | [...] + + | [address] | [address] [facility] | [place] [address] | [phone] | | [facility] | | | [...] + | [address] | [address] | [place] [address] | [phone] | | [place] [facility] | | | [...]
--- OUTSIDE RECORDS SUMMARY | ~2019-09-20 | XMS | Encounter Summary ---
Demographics + + + | Address | [address] | | | [place] [address] | + + + | Home Phone [...] Team Providers + +------+ + | Care Steward/Stewardess Third Class Name | Role | Phone | + +------+ + | Meet Small MD | PCP | | + +------+ + Reason for Visit + + + | Reason | Comments | + + + | ED Follow-up | 06/03/14 [place] - Right Arm Pain | + + + Encounter Details +--------+ + + + + | Date | Type | Department | Care Team | Description | +--------+ + + + + | 06/05/ | Telephone | [facility] | Meet Small | ED Follow-up | | 2013 | | [facility] [address] [facility] | [address] | (06/03/14 [place] | | | | [address]ILY [address] | [place], | [place] - Right Arm | | | | [place] | [place] [address] | Pain ) | | | | [place] | [phone] | | | | | [address] | | | | | | [phone] | | | +--------+ + + + [...]
--- OUTSIDE RECORDS SUMMARY | ~2019-09-20 | XMS | Encounter Summary ---
Demographics + + + | Address | [address] | | | [place] [address] | + + + | Home Phone | | + + + | Preferred Language | Unknown | + + + | Marital Status | Single | + + + | Adventism Affiliation | 1013 | + + + | Race | Unknown | + + + | Ethnic Group | Unknown | + + + Author + + + | Author | [facility] | | | and [place] | + + + | Organization | [facility] | | | and [place] | + + + | Address | Unknown | + + + | Phone | Unavailable | + + + Support + + +---------+ + | Name | Relationship | Address | Phone | + + +---------+ + | Kirti Colon | ECON | Unknown | | + + +---------+ + | Cindy Bucther | ECON | Unknown | | + + +---------+ + Care Team Providers + +------+ + | Care Plastic Extrusion Operator Name | Role | Phone | [...] + + | 09/22/ | Documentati | [facility] | Gordon Rivero MD | Records Request | | 2013 | on | [facility] | [address] | (maternal | | | | FAMILY MEDIC[address] | [place] [address] | medicine records) | | | | [place] | [phone] | | | | | [place], [place] | | | | | | [address] | | | | | | [phone] | | | +--------+ + + + [...] peds neurosurg referral to follow. echocardiogram. Tertiary [facility] delivery if hydrocephalus develops. documented in this encounter Plan of Treatment Not on filedocumented as of this encounter Visit Diagnoses + + | Diagnosis | + + | Supervision of other normal - Primary | + + documented in this encounter"
--- OUTSIDE RECORDS SUMMARY | ~2019-09-20 | XMS | Encounter Summary ---
Demographics + + + | Address | [address] | | | [place] [address] | + + + | Home Phone | | + + + | Preferred Language | Unknown | + + + | Marital Status | Single | + + + | Advent Affiliation | 1013 | + + + [...] Team Providers + +------+ + | Care Stone Trimmer Name | Role | Phone | + +------+ + | Wesley Dinero | PCP | | | HIDE DROPPER | | | + +------+ + Encounter Details +--------+ + + + + | Date | Type | Department | Care Team | Description | +--------+ + + + + | 05/26/ | Abstract | [facility] | DATA MIGRATION JONATHAN | | | 2011 | | Conversion Location | SR | | | | | [phone] | | | +--------+ + + + [...]
--- OUTSIDE RECORDS SUMMARY | ~2019-09-20 | XMS | Encounter Summary ---
Demographics + + + | Address | [address] | | | [place] [address] | + + + | Home Phone | | + + + | Preferred Language | Unknown | + + + | Marital Status | Single | + + + | Denominational Affiliation | 1013 | + + + | Race | Unknown | + + + | Ethnic Group | Unknown | + + + Author + + + | Author | [facility] | | | and [place] | + + + | Organization | [facility] | | | and [...] Team Providers + +------+ + | Care Sanipractic Physician Name | Role | Phone | + [...] | | CENTER [address] [place], [place] | | | | | [address] | [address] | | | | | [place], [place] | | | | | | [address] | | | | | | [phone] | | | +--------+ + + + [...] C7-T1 alignment are | | | maintained. [place] EXAM NUMBER: [id number] CERVICAL SPINE 4+VIEWS | | | [id number] | | + + + + + [...] the C7-T1 alignment are maintained. | | [place] EXAM NUMBER: [id number] CERVICAL SPINE 4+VIEWS BCH=[id number] | | IMPRESSION: | | IMPRESSION: No [...]
--- OUTSIDE RECORDS SUMMARY | ~2019-09-20 | XMS | Encounter Summary ---
Demographics + + + | Address | [address] | | | [place] [address] | + + + | Home Phone [...] Team Providers + +------+ + | Care Relief Driller Name | Role | Phone | + [...] | [facility] | Luis M, WELDING MACHINE OPERATOR [address] | | | | | [address] | [facility] [address] | | | | | [address] | [place] [address] | | | | | [place], [place] | [phone] | | | | | [address] | | | | | | [phone] | | | +--------+ + + + [...] "pink card") is on file at the [facility]. The following concerns/requests were not ed: ___x___Observe/document parent/child interaction Do not discharge without CPS ok, baby may room in CPS suspects substance abuse, request doctor ask mom for UTOX, or, ___x___Request Ped request UTOX due to maternal substance use ADMINISTRATIVE HOLD per CPS request, baby to SCN ADOPTION __none known / Name of Cross Cut Saw Operator Phone # ____none known / Name of [...]
--- OUTSIDE RECORDS SUMMARY | ~2019-09-20 | XMS | Encounter Summary ---
Demographics + + + | Address | [address] | | | [place] [address] | + + + | Home Phone | | + + + | Preferred Language | Unknown | + + + | Marital Status | Single | + + + | Taoist Affiliation | 1013 | + + + | Race | Unknown | + + + | Ethnic Group | Unknown | + + + Author + + + | Author | [facility] | | | and [place] | + + + | Organization | [facility] | | | and [place] | + [...] Team Providers + +------+ + | Care Radiographer Mammographer Name | Role | Phone | + [...] | | [address] | [place] [address] | | | | | [place] | [phone] | | | | | [place] | | | | | | [address] | | | | | | [phone] | | | +--------+ + + + [...] | [address] | [place] [address] | [phone] | | [facility] [facility] | | | [...]
--- OUTSIDE RECORDS SUMMARY | ~2019-09-20 | XMS | Encounter Summary ---
Demographics + + + | Address | [address] | | | [place] [address] | + + + | Home Phone | | + + + | Preferred Language | Unknown | + + + | Marital Status | Single | + + + | Episcopal Affiliation | 1013 | + + + | Race | Unknown | + + + | Ethnic Group | Unknown | + + + Author + + + | Author | [facility] | | | and [place]ana | + + + | Organization | [facility] | | [...] Team Providers + +------+ + | Care Comfort Station Supervisor Name | Role | Phone | + [...] + + | 11/22/ | Office | [facility] | Gordon Rivero MD | care and | | 2013 | Visit | [facility] | [address] | examination (Primary | | | | [address] | [place] [address] | Dx); Dental | | | | [address] | [phone] | infection; | | | | [place], [place] | | Contraception | | | | [phone] | | management; | | | | [phone] | | Polysubstance abuse; | | | [...] CTA : bimanual exam with kalli as car rental clerk. perineal laceration healed without evidence of seroma. Uterus fully involuted. No adnexal mass or tenderness. Psych: mood & affect bright, thought form logical and speech organized. Assessment/Plan: 1. care and examination Doing well 2. Dental infection Pt and I will call [facility] to request they see her, since they [...]
--- OUTSIDE RECORDS SUMMARY | ~2019-09-20 | XMS | Encounter Summary ---
Demographics + + + | Address | [address] | | | [place] [address] | + + + | Home Phone | | + + + | Preferred Language | Unknown | + + + | Marital Status | Single | + + + | Amish Affiliation | [id number] | + + + | Race | Unknown | + + + | Ethnic Group | Unknown | + + + Author + + + | Author | [facility] | | | and Jfefana | + + + | Organization | [facility] | | | [...] Team Providers + +------+ + | Care Bankruptcy Legal Assistant Name | Role | Phone | + +------+ + | Adelita Pierce | PCP | | + +------+ + Encounter Details +--------+ + + + + | Date | Type | Department | Care Team | Description | +--------+ + + + + | 01/12/ | Hospital | [facility] | Smitha Pryor | | | 2009 - | Encounter | [facility] | Inactive [place], | | | | | SURGICAL [address] | MD Felicia Dunlap | | | 01/15/ | | [address] | [address] | | | 2009 | | [place], [place] | [address] [place], [place] | | | | | [address] | [address] | | | | | [phone] | | | +--------+ + + + [...] + + documented as of this encounter Discharge Summaries Yolette Pryor MD - 12/05/2011 9:39 PM PDT Admission date: 01/12/2010 Discharge date: 01/14/2010 Primary care physician: BERTO Hicks FINAL DIAGNOSES: 1. Sepsis secondary to pyelonephritis, improving. 2. Pyelonephritis secondary to E. coli infection. 3. Non-obstructive nephrolithiasis of left kidney. 4. Constipation. Hospital course: The patient is a pleasant 24-year-old woman who presented with acute onset of left-sided abdominal and flank pain, fever, chills, nausea and vomiting. She was found to have pyelonephritis and was started on ceftriaxone. She was tachycardic, febrile with a temperature up to 39.7 degrees on admission, and with a leukocytosis of about 17,000. She responded to antibiotics and IV fluid really well. Her tachycardia and fever had resolved. Her leukocytosis had also resolved, down to 9000. The patient initially required IV Dilaudid which was later switched to p.o. Dilaudid and Vicodin. The patient says that p.o. Dilaudid was very helpful with her pain, and the patient will be discharged home with a prescription for p.o. Dilaudid for her continued left flank pain which is much improved. The patient says that her nausea and vomiting have essentially resolved. She was able to tolerate p.o. intake quite well, and she has not been requiring any antiemetics for least 2 days. Her urine culture grew out E. coli, the antibiotics were therefore switched over from ceftriaxone to ciprofloxacin which she would continue to take for another 11 days to complete a total of 14 days of antibiotics treatment. She does feel a little bit constipated and was therefore started on scheduled Colace and MiraLAX which will be given a prescription to be taken at home as needed, and the patient was advised of the side effects of constipation as well as sedation and drowsiness and given advice for precaution. Her CT of abdomen and pelvis showed 2 mm non-obstructive left renal calculus and gallbladder sludge. The patient was advised to followup with her primary care provider, and urology referral, as needed. The patient was given the note to be off work as well as advised to her employer that the patient would be safe to return to work tomorrow. DISCHARGE MEDICATIONS: 1. Seasonique 1 tablet p.o. daily. 2. Colace 100 mg p.o. b.i.d. p.r.n. 3. MiraLAX 17 g p.o. daily p.r.n. 4. Acetaminophen 325 to 650 mg p.o. every 4 hours p.r.n. pain. 5. Dilaudid 2-6 mg p.o. every 3 hours p.r.n., dispensed #40 tablets with no refills. 6. Ciprofloxacin 500 mg p.o. b.i.d. x 11 days. FOLLOWUP CARE: 1. Followup with primary care provider as in 1-2 weeks as needed. Discharge condition: Stable. Greater than 35 minutes spent on discharge and bedside consult. Smitha Pryor MD [facility]/trs /[id number] A PST A PST :1985 MLS#: [id number] cc: MD Adelita Milian ARNP Authenticated and Edited by Yolette Pryor MD On 01/26/10 3:48:20 PM [facility] - 01/26/2010 12:00 AM PDTElec tronically signed by Ethan Kaufman at 05/31/2013 2:12 AM PDTdocumented in this encounter Progress Notes [facility] - 01/17/2010 12:00 AM PDT 13 12:38 AM [facility] - 01/16/2010 12:00 AM PDT [facility] - 01/16/2010 12:00 AM PDT documented in this encounter Plan of Treatment Not on filedocumented as of this encounter Procedures + +--------+ + + + | Procedure Name | Priori | Date/Time | Associated Diagnosis | Comments | | | ty | | | | + +--------+ + + + | CBC WITH | Timed | 01/14/2010 | | Results for this | | DIFFERENTIAL | | 3:34 AM | | procedure are in the | | | | PDT | | results section. | + +--------+ + + + | BASIC METABOLIC | Timed | 01/14/2010 | | Results for this | | PANEL | | 3:34 AM | | procedure are in the | | | | PDT | | results section. | + +--------+ + + + | CBC WITH | Timed | 01/13/2010 | | Results for this | | DIFFERENTIAL | | 3:56 AM | | procedure are in the | | | | PDT | | results section. | + +--------+ + + + | BASIC METABOLIC | Timed | 01/13/2010 | | Results for this | | PANEL | | 3:56 AM | | procedure are in the | | | | PDT | | results section. | + +--------+ + + + | XR ABDOMEN AP | | 01/12/2010 | | Results for this | | | | 1:03 PM | | procedure are in the | | | | PDT | | results section. | + +--------+ + + + | CT PELVIS WO | | 01/12/2010 | | Results for this | | CONTRAST | | 12:50 PM | | procedure are in the | | | | PDT | | results section. | + +--------+ + + + | CT ABDOMEN WO | | 01/12/2010 | | Results for this | | CONTRAST | | 12:49 PM | | procedure are in the | | | | PDT | | results section. | + +--------+ + + + | CBC WITH | STAT | 01/12/2010 | | Results for this | | DIFFERENTIAL | | 12:26 PM | | procedure are in the | | | | PDT | | results section. | + +--------+ + + + | LIPASE | STAT | 01/12/2010 | | Results for this | | | | 12:26 PM | | procedure are in the | | | | PDT | | results section. | + +--------+ + + + | COMPREHENSIVE | STAT | 01/12/2010 | | Results for this | | METABOLIC PANEL | | 12:26 PM | | procedure are in the | | | | PDT | | results section. | + +--------+ + + + | URINALYSIS WITH | STAT | 01/12/2010 | | Results for this | | MICROSCOPIC WITH | | 12:20 PM | | procedure are in the | | CULTURE IF INDICATED | | PDT | | results section. | + +--------+ + + + | HCG, URINE, QUAL | STAT | 01/12/2010 | | Results for this | | | | 12:20 PM | | procedure are in the | | | | PDT | | results section. | + +--------+ + + + | CULTURE, URINE | Routin | 01/12/2010 | | Results for this | | | e | 12:20 PM | | procedure are in the | | | | PDT | | results section. | + +--------+ + + + documented in this encounter Results CBC w/ Differential (01/14/2010 3:34 AM PDT) + +---------+ + + + | Component | Value | Ref Range | Performed | Pathologist | | | | | At | Signature | + +---------+ + + + | WBC | 9.2 | 4.0 - 11.0 K/uL | [facility] | | | | | | LABORATORY | | + +---------+ + + + | RBC | 3.93 | 3.80 - 5.20 | [facility] | | | | | M/uL | LABORATORY | | + +---------+ + + + | Hemoglobin | 12.4 | 11.6 - 15.5 | [facility] | | | | | g/dL | LABORATORY | | + +---------+ + + + | Hematocrit | 35.9 | 35.0 - 46.0 % | [facility] | | | | | | LABORATORY | | + +---------+ + + + | MCV | 91.3 | 80.0 - 96.0 fL | [facility] | | | | | | LABORATORY | | + +---------+ + + + | MCH | 31.5 | 27.0 - 34.0 pg | [facility] | | | | | | LABORATORY | | + +---------+ + + + | MCHC | 34.5 | 32.0 - 35.5 | [facility] | | | | | g/dL | LABORATORY | | + +---------+ + + + | RDW-CV | 13.1 | 11.0 - 14.5 % | [facility] | | | | | | LABORATORY | | + +---------+ + + + | Platelet | 162 | 150 - 400 K/uL | [facility] | | | Count | | | LABORATORY | | + +---------+ + + + | MPV | 8.4 | 7.4 - 10.3 fL | [facility] | | | | | | LABORATORY | | + +---------+ + + + | % nRBC | 0 | /100 WBC | [facility] | | | | | | LABORATORY | | + +---------+ + + + | % | 71 | % | [facility] | | | Neutrophils | | | LABORATORY | | + +---------+ + + + | % | 17 | % | [facility] | | | Lymphocytes | | | LABORATORY | | + +---------+ + + + | % Monocytes | 10 | % | [facility] | | | | | | LABORATORY | | + +---------+ + + + | % | 2 | % | [facility] | | | Eosinophils | | | LABORATORY | | + +---------+ + + + | % Basophils | 1 | % | [facility] | | | | | | LABORATORY | | + +---------+ + + + | Absolute | 6.5 | 2.0 - 7.3 K/uL | [facility] | | | Neutrophils | | | LABORATORY | | + +---------+ + + + | Absolute | 1.6 | 1.0 - 3.4 K/uL | [facility] | | | Lymphocytes | | | LABORATORY | | + +---------+ + + + | Absolute | 0.9 (H) | 0.0 - 0.8 K/uL | [facility] | | | Monocytes | | | LABORATORY | | + +---------+ + + + | Absolute | 0.2 | 0.0 - 0.5 K/uL | [facility] | | | Eosinophils | | | LABORATORY | | + +---------+ + + + | Absolute | 0.1 | 0.0 - 0.1 K/uL | [facility] | | | Basophils | | | LABORATORY | | + +---------+ + + + | Manual Diff | No | | [facility] | | | Performed | | | LABORATORY | | + +---------+ + + + + + | Specimen | + + | Blood specimen | | (specimen) - Other | + + + + + + + | Performing | Address | City/State/Zipcode | Phone Number | | Organization | | | | + + + + + | [facility] [address] | [address] | [place] [address] | [phone] | | [facility] | | | | | LABORATORY | | | | + + + + + | [facility] | [address] | [place] [address] | [phone] | | LABORATORY | | | | + + + + + Basic metabolic panel (01/14/2010 3:34 AM PDT) + + + + + + | Component | Value | Ref Range | Performed | Pathologist | | | | | At | Signature | + + + + + + | Na | 139 | 135 - 145 | [facility] | | | | | mmol/L | LABORATORY | | + + + + + + | K | 3.6 | 3.5 - 5.0 | [facility] | | | | | mmol/L | LABORATORY | | + + + + + + | Cl | 111 (H) | 98 - 109 mmol/L | [facility] | | | | | | LABORATORY | | + + + + + + | CO2 | 25 | 22 - 30 mmol/L | [facility] | | | | | | LABORATORY | | + + + + + + | Anion Gap | 3 (L) | 5 - 15 mmol/L | [facility] | | | | | | LABORATORY | | + + + + + + | Glucose | 125 (H)Comment: | 65 - 99 mg/dL | [facility] | | | | normals 65 to 94 mg/dL | | LABORATORY | | + + + + + + | BUN | <3 (L) | 7 - 23 mg/dL | [facility] | | | | | | LABORATORY | | + + + + + + | Creatinine | 0.75 | 0.60 - 1.20 | [facility] | | | | | mg/dL | LABORATORY | | + + + + + + | Calcium | 7.7 (L) | 8.5 - 10.5 | [facility] | | | | | mg/dL | LABORATORY | | + + + + + + | Estimated | >60Comment: Reference | mL/min/1.73m2 | [facility] | | | GFR | Range for GFR estimate: | | LABORATORY | | | | Persistent | | | | | | GFR <60 is consistent | | | | | | with Chronic Kidney | | | | | | Disease | | | | | | For , | | | | | | multiply the calculated | | | | | | GFR by 1.21 | | | | + + + + + + + + | Specimen | + + | Blood specimen | | (specimen) - Other | + + + + + + + | Performing | Address | City/State/Zipcode | Phone Number | | Organization | | | | + + + + + | [facility] [address] | [address] | [place] [address] | [phone] | | [facility] | | | | | LABORATORY | | | | + + + + + | [facility] | [address] | [place] [address] | [phone] | | LABORATORY | | | | + + + + + CBC w/ Differential (01/13/2010 3:56 AM PDT) + + + + + + | Component | Value | Ref Range | Performed | Pathologist | | | | | At | Signature | + + + + + + | WBC | 14.1 (H) | 4.0 - 11.0 K/uL | [facility] | | | | | | LABORATORY | | + + + + + + | RBC | 4.15 | 3.80 - 5.20 | [facility] | | | | | M/uL | LABORATORY | | + + + + + + | Hemoglobin | 13.0 | 11.6 - 15.5 | [facility] | | | | | g/dL | LABORATORY | | + + + + + + | Hematocrit | 37.9 | 35.0 - 46.0 % | [facility] | | | | | | LABORATORY | | + + + + + + | MCV | 91.3 | 80.0 - 96.0 fL | [facility] | | | | | | LABORATORY | | + + + + + + | MCH | 31.3 | 27.0 - 34.0 pg | [facility] | | | | | | LABORATORY | | + + + + + + | MCHC | 34.2 | 32.0 - 35.5 | [facility] | | | | | g/dL | LABORATORY | | + + + + + + | RDW-CV | 13.0 | 11.0 - 14.5 % | [facility] | | | | | | LABORATORY | | + + + + + + | Platelet | 161 | 150 - 400 K/uL | [facility] | | | Count | | | LABORATORY | | + + + + + + | MPV | 8.2 | 7.4 - 10.3 fL | [facility] | | | | | | LABORATORY | | + + + + + + | % nRBC | 0 | /100 WBC | [facility] | | | | | | LABORATORY | | + + + + + + | % | 86 | % | [facility] | | | Neutrophils | | | LABORATORY | | + + + + + + | % | 8 | % | [facility] | | | Lymphocytes | | | LABORATORY | | + + + + + + | % Monocytes | 7 | % | [facility] | | | | | | LABORATORY | | + + + + + + | % | 0 | % | [facility] | | | Eosinophils | | | LABORATORY | | + + + + + + | % Basophils | 0 | % | [facility] | | | | | | LABORATORY | | + + + + + + | Absolute | 12.1 (H) | 2.0 - 7.3 K/uL | [facility] | | | Neutrophils | | | LABORATORY | | + + + + + + | Absolute | 1.1 | 1.0 - 3.4 K/uL | [facility] | | | Lymphocytes | | | LABORATORY | | + + + + + + | Absolute | 1.0 (H) | 0.0 - 0.8 K/uL | [facility] | | | Monocytes | | | LABORATORY | | + + + + + + | Absolute | 0.0 | 0.0 - 0.5 K/uL | [facility] | | | Eosinophils | | | LABORATORY | | + + + + + + | Absolute | 0.0 | 0.0 - 0.1 K/uL | [facility] | | | Basophils | | | LABORATORY | | + + + + + + | Manual Diff | No | | [facility] | | | Performed | | | LABORATORY | | + + + + + + + + | Specimen | + + | Blood specimen | | (specimen) - Other | + + + + + + + | Performing | Address | City/State/Zipcode | Phone Number | | Organization | | | | + + + + + | [facility] | [address] [facility] [facility] [address] | [place] [address] | [phone] | | [facility] | | | | | LABORATORY | | | | + + + + + | [facility] | [address] [facility] [address] | [place] [address] | [phone] | | LABORATORY | | | | + + + + + Basic metabolic panel (01/13/2010 3:56 AM PDT) + + + + + + | Component | Value | Ref Range | Performed | Pathologist | | | | | At | Signature | + + + + + + | Na | 139 | 135 - 145 | [facility] | | | | | mmol/L | LABORATORY | | + + + + + + | K | 4.0 | 3.5 - 5.0 | [facility] | | | | | mmol/L | LABORATORY | | + + + + + + | Cl | 111 (H) | 98 - 109 mmol/L | [facility] | | | | | | LABORATORY | | + + + + + + | CO2 | 23 | 22 - 30 mmol/L | [facility] | | | | | | LABORATORY | | + + + + + + | Anion Gap | 5 | 5 - 15 mmol/L | [facility] | | | | | | LABORATORY | | + + + + + + | Glucose | 164 (H)Comment: | 65 - 99 mg/dL | [facility] | | | | normals 65 to 94 mg/dL | | LABORATORY | | + + + + + + | BUN | 5 (L) | 7 - 23 mg/dL | [facility] | | | | | | LABORATORY | | + + + + + + | Creatinine | 0.83 | 0.60 - 1.20 | [facility] | | | | | mg/dL | LABORATORY | | + + + + + + | Calcium | 7.6 (L) | 8.5 - 10.5 | [facility] | | | | | mg/dL | LABORATORY | | + + + + + + | Estimated | >60Comment: Reference | mL/min/1.73m2 | [facility] | | | GFR | Range for GFR estimate: | | LABORATORY | | | | Persistent | | | | | | GFR <60 is consistent | | | | | | with Chronic Kidney | | | | | | Disease | | | | | | For , | | | | | | multiply the calculated | | | | | | GFR by 1.21 | | | | + + + + + + + + | Specimen | + + | Blood specimen | | (specimen) - Other | + + + + + + + | Performing | Address | City/State/Zipcode | Phone Number | | Organization | | | | + + + + + | [facility] | [address] | [place] [address] | [phone] | | [facility] | | | | | LABORATORY | | | | + + + + + | [facility] | [address] | [place] [address] | [phone] | | LABORATORY | | | | + + + + + XR Abdomen AP (01/12/2010 1:03 PM PDT) + + | Specimen | + + | | + + + + + | Impressions | Performed At | + + + | IMPRESSION: 1. No acute plain film findings of | [facility] | | the abdomen. 2. Moderate amount of feces | | | throughout the entire colon. Dictated | | | By: Rey Akers M.D. 01/12/2010 3:08:18 PM | | + + + + + + | Narrative | Performed At | + + + | ABDOMEN 1V DATE OF EXAM: 01/12/2010 INDICATION: right | [facility] | | flank pain COMPARISON: None FINDINGS: There are no distended | | | loops of bowel. Moderate amount of feces throughout the colon. No | | | radiodense calculi. Osseous structures are normal. [facility] EXAM | | | NUMBER: [id number] ABDOMEN 1V [id number] | | + + + + + | Procedure Note | + + | Ron, Rad Conversion - 10/13/2011 7:23 PM PST ABDOMEN 1V | | | | DATE OF EXAM: 01/12/2010 | | | | INDICATION: right flank pain | | | | COMPARISON: None | | | | FINDINGS: There are no distended loops of bowel. Moderate | | amount of feces throughout the colon. No radiodense calculi. | | Osseous structures are normal. | | [place] EXAM NUMBER: [id number] ABDOMEN 1V [id number] | | IMPRESSION: | | IMPRESSION: | | 1. No acute plain film findings of the abdomen. | | 2. Moderate amount of feces throughout the entire colon. | | | | | | | | | | Dictated By: Rey Akers M.D. 01/12/2010 3:08:18 PM | + + + +---------+ + + | Performing | Address | City/State/Zipcode | Phone Number | | Organization | | | | + +---------+ + + | [facility] | | | | + +---------+ + + CT Pelvis wo Contrast (01/12/2010 12:50 PM PDT) + + | Specimen | + + | | + + + + | Addenda | + + | Addendum by Rey Akers MD on 01/13/2010 11:18 AM ADDENDUM: | | (-11:18) CT ABD wo CONT,CT PELVIS wo CONT | | DATE OF EXAM: 01/12/2010 | | A report was faxed to the A/B pod in the ED for Dr. Pastrana at | | 1327 hours on January 12, 2010. | | Dictated By: Rey Akers M.D. 01/13/2010 11:14:28 AM | + + + + + | Impressions | Performed At | + + + | IMPRESSION: 1. Extreme lack of fat planes | [facility] | | throughout the peritoneal cavity. 2. No acute | | | findings of the abdomen or pelvis. 3. 2 mm | | | nonobstructive left renal calculus. No ureteral | | | calculi or hydronephrosis. 4. Presence of | | | sludge in the gallbladder fundus without acute | | | gallbladder findings. 5. Trace amount of free | | | fluid in the pelvis. 6. Lots of feces throughout | | | the entire colon. NOTE: Imaging of the solid | | | viscera is limited without the benefit of | | | iodinated contrast. If this exam does | | | not elucidate the cause of the patient's | | | symptoms, and the symptoms persist or | | | progress, additional imaging may be indicated. | | | Preliminary report to Dr. Adolfo Pastrana of the emergency | | | department. Dictated By: Rey | | | Jignesh Akers 01/12/2010 1:10:27 PM | | + + + + + + | Narrative | Performed At | + + + | CT ABD wo CONT,CT PELVIS wo CONT DATE OF EXAM: 01/12/2010 | [facility] | | INDICATION: right flank pain TECHNIQUE: Using helical | | | technique, 5-mm-thick slices were obtained through the abdomen and | | | pelvis from the bases of the lungs through the pubic symphysis | | | without intravenous contrast. Sagittal and coronal reformations were | | | reviewed on the workstation. COMPARISON: None FINDINGS - CT | | | OF THE ABDOMEN: There is extreme lack of fat planes throughout the | | | peritoneal cavity to separate the intra abdominal organs and bowel | | | loops. I do not identify the appendix. Lots of feces throughout | | | the entire colon. No inflammatory changes free air, free fluid, or | | | distended loops of bowel. There is a tiny 2 mm nonobstructive | | | calculus in the mid pole of the left kidney as seen on axial image | | | number 28. No additional urolithiasis. No obstructive uropathy. | | | The posterior portion of the fluid in the nondistended gallbladder | | | is slightly higher in density as compared to anteriorly compatible | | | with presence of sludge. No stones or acute gallbladder findings or | | | biliary dilatation. Noncontrast images of the liver, spleen, | | | pancreas, adrenal glands, aorta, retroperitoneal structures, lung | | | bases, and osseous structures are normal. FINDINGS - CT OF THE | | | PELVIS: Uterus appears within normal limits in size. The ovaries | | | are not specifically identified and are difficult to differentiate | | | from noncontrast filled bowel loops. Trace amount of free fluid in | | | the pelvis. Lots of feces throughout the colon. [facility] EXAM NUMBER: | | | [id number] CT PELVIS wo CONT [id number] | | + + + + + | Procedure Note | + + | Ron, Rad Conversion - 10/13/2011 7:[address] ABD wo CONT,CT PELVIS wo CONT | | | | DATE OF EXAM: 01/12/2010 | | | | INDICATION: right flank pain | | | | TECHNIQUE: Using helical technique, 5-mm-thick slices were | | obtained through the abdomen and pelvis from the bases of the | | lungs through the pubic symphysis without intravenous contrast. | | Sagittal and coronal reformations were reviewed on the | | workstation. | | | | COMPARISON: None | | | | FINDINGS - CT OF THE ABDOMEN: There is extreme lack of fat | | planes throughout the peritoneal cavity to separate the intra | | abdominal organs and bowel loops. I do not identify the | | appendix. Lots of feces throughout the entire colon. No | | inflammatory changes free air, free fluid, or distended loops of | | bowel. | | | | There is a tiny 2 mm nonobstructive calculus in the mid pole of | | the left kidney as seen on axial image number 28. No additional | | urolithiasis. No obstructive uropathy. | | | | The posterior portion of the fluid in the nondistended | | gallbladder is slightly higher in density as compared to | | anteriorly compatible with presence of sludge. No stones or | | acute gallbladder findings or biliary dilatation. | | | | Noncontrast images of the liver, spleen, pancreas, adrenal | | glands, aorta, retroperitoneal structures, lung bases, and | | osseous structures are normal. | | | | FINDINGS - CT OF THE PELVIS: Uterus appears within normal | | limits in size. The ovaries are not specifically identified and | | are difficult to differentiate from noncontrast filled bowel | | loops. Trace amount of free fluid in the pelvis. Lots of feces | | throughout the colon. | | [facility] EXAM NUMBER: [id number] CT PELVIS wo CONT [id number] | | IMPRESSION: | | IMPRESSION: | | 1. Extreme lack of fat planes throughout the peritoneal | | cavity. 2. No acute findings of the abdomen or pelvis. | | 3. 2 mm nonobstructive left renal calculus. No ureteral | | calculi or hydronephrosis. | | 4. Presence of sludge in the gallbladder fundus without acute | | gallbladder findings. | | 5. Trace amount of free fluid in the pelvis. | | 6. Lots of feces throughout the entire colon. | | | | NOTE: Imaging of the solid viscera is limited without | | the benefit of iodinated contrast. If this | | exam does not elucidate the cause of the | | patient's symptoms, and the symptoms persist or | | progress, additional imaging may be indicated. | | | | Preliminary report to Dr. Adolfo Pastrana of the emergency | | department. | | | | | | Dictated By: Rey Akers M.D. 01/12/2010 1:10:27 PM | + + + +---------+ + + | Performing | Address | City/State[facility] | Phone Number | | Organization | | | | + +---------+ + + | [facility] | | | | + +---------+ + + CT Abdomen wo Contrast (01/12/2010 12:49 PM PDT) + + | Specimen | + + | | + + + + | Addenda | + + | Addendum by Rey Akers MD on 01/13/2010 11:18 AM ADDENDUM: | | (13-Jan-2010/11:18) CT ABD wo CONT,CT PELVIS wo CONT | | DATE OF EXAM: 01/12/2010 | | A report was faxed to the A/B pod in the ED for Dr. Pastrana at | | 1327 hours on January 12, 2010. | | Dictated By: Rey Akers M.D. 01/13/2010 11:14:28 AM | + + + + + | Impressions | Performed At | + + + | IMPRESSION: 1. Extreme lack of fat planes | [facility] | | throughout the peritoneal cavity. 2. No acute | | | findings of the abdomen or pelvis. 3. 2 mm | | | nonobstructive left renal calculus. No ureteral | | | calculi or hydronephrosis. 4. Presence of | | | sludge in the gallbladder fundus without acute | | | gallbladder findings. 5. Trace amount of free | | | fluid in the pelvis. 6. Lots of feces throughout | | | the entire colon. NOTE: Imaging of the solid | | | viscera is limited without the benefit of | | | iodinated contrast. If this exam does | | | not elucidate the cause of the patient's | | | symptoms, and the symptoms persist or | | | progress, additional imaging may be indicated. | | | Preliminary report to Dr. Adolfo Pastrana of the emergency | | | department. Dictated By: Rey | | | Jignesh Akers 01/12/2010 1:10:27 PM | | + + + + + + | Narrative | Performed At | + + + | CT ABD wo CONT,CT PELVIS wo CONT DATE OF EXAM: 01/12/2010 | [facility] [facility] | | INDICATION: right flank pain TECHNIQUE: Using helical | | | technique, 5-mm-thick slices were obtained through the abdomen and | | | pelvis from the bases of the lungs through the pubic symphysis | | | without intravenous contrast. Sagittal and coronal reformations were | | | reviewed on the workstation. COMPARISON: None FINDINGS - CT | | | OF THE ABDOMEN: There is extreme lack of fat planes throughout the | | | peritoneal cavity to separate the intra abdominal organs and bowel | | | loops. I do not identify the appendix. Lots of feces throughout | | | the entire colon. No inflammatory changes free air, free fluid, or | | | distended loops of bowel. There is a tiny 2 mm nonobstructive | | | calculus in the mid pole of the left kidney as seen on axial image | | | number 28. No additional urolithiasis. No obstructive uropathy. | | | The posterior portion of the fluid in the nondistended gallbladder | | | is slightly higher in density as compared to anteriorly compatible | | | with presence of sludge. No stones or acute gallbladder findings or | | | biliary dilatation. Noncontrast images of the liver, spleen, | | | pancreas, adrenal glands, aorta, retroperitoneal structures, lung | | | bases, and osseous structures are normal. FINDINGS - CT OF THE | | | PELVIS: Uterus appears within normal limits in size. The ovaries | | | are not specifically identified and are difficult to differentiate | | | from noncontrast filled bowel loops. Trace amount of free fluid in | | | the pelvis. Lots of feces throughout the colon. [place] EXAM NUMBER: | | | [id number] CT ABD wo CONT [id number] | | + + + + + | Procedure Note | + + | Ron, Rad Conversion - 10/13/2011 7:[address] ABD wo CONT,CT PELVIS wo CONT | | | | DATE OF EXAM: 01/12/2010 | | | | INDICATION: right flank pain | | | | TECHNIQUE: Using helical technique, 5-mm-thick slices were | | obtained through the abdomen and pelvis from the bases of the | | lungs through the pubic symphysis without intravenous contrast. | | Sagittal and coronal reformations were reviewed on the | | workstation. | | | | COMPARISON: None | | | | FINDINGS - CT OF THE ABDOMEN: There is extreme lack of fat | | planes throughout the peritoneal cavity to separate the intra | | abdominal organs and bowel loops. I do not identify the | | appendix. Lots of feces throughout the entire colon. No | | inflammatory changes free air, free fluid, or distended loops of | | bowel. | | | | There is a tiny 2 mm nonobstructive calculus in the mid pole of | | the left kidney as seen on axial image number 28. No additional | | urolithiasis. No obstructive uropathy. | | | | The posterior portion of the fluid in the nondistended | | gallbladder is slightly higher in density as compared to | | anteriorly compatible with presence of sludge. No stones or | | acute gallbladder findings or biliary dilatation. | | | | Noncontrast images of the liver, spleen, pancreas, adrenal | | glands, aorta, retroperitoneal structures, lung bases, and | | osseous structures are normal. | | | | FINDINGS - CT OF THE PELVIS: Uterus appears within normal | | limits in size. The ovaries are not specifically identified and | | are difficult to differentiate from noncontrast filled bowel | | loops. Trace amount of free fluid in the pelvis. Lots of feces | | throughout the colon. | | [place] EXAM NUMBER: [id number] CT ABD wo CONT [id number] | | IMPRESSION: | | IMPRESSION: | | 1. Extreme lack of fat planes throughout the peritoneal | | cavity. 2. No acute findings of the abdomen or pelvis. | | 3. 2 mm nonobstructive left renal calculus. No ureteral | | calculi or hydronephrosis. | | 4. Presence of sludge in the gallbladder fundus without acute | | gallbladder findings. | | 5. Trace amount of free fluid in the pelvis. | | 6. Lots of feces throughout the entire colon. | | | | NOTE: Imaging of the solid viscera is limited without | | the benefit of iodinated contrast. If this | | exam does not elucidate the cause of the | | patient's symptoms, and the symptoms persist or | | progress, additional imaging may be indicated. | | | | Preliminary report to Dr. Adolfo Pastrana of the emergency | | department. | | | | | | Dictated By: Rey Akers M.D. 01/12/2010 1:10:27 PM | + + + +---------+ + + | Performing | Address | City/State/Zipcode | Phone Number | | Organization | | | | + +---------+ + + | [facility] | | | | + +---------+ + + CBC w/ Differential (01/12/2010 12:26 PM PDT) + + + + + + | Component | Value | Ref Range | Performed | Pathologist | | | | | At | Signature | + + + + + + | WBC | 16.8 (H) | 4.0 - 11.0 K/uL | [facility] | | | | | | LABORATORY | | + + + + + + | RBC | 5.08 | 3.80 - 5.20 | [facility] | | | | | M/uL | LABORATORY | | + + + + + + | Hemoglobin | 15.6 (H) | 11.6 - 15.5 | [facility] | | | | | g/dL | LABORATORY | | + + + + + + | Hematocrit | 46.5 (H) | 35.0 - 46.0 % | [facility] | | | | | | LABORATORY | | + + + + + + | MCV | 91.6 | 80.0 - 96.0 fL | [facility] | | | | | | LABORATORY | | + + + + + + | MCH | 30.7 | 27.0 - 34.0 pg | [facility] | | | | | | LABORATORY | | + + + + + + | MCHC | 33.5 | 32.0 - 35.5 | [facility] | | | | | g/dL | LABORATORY | | + + + + + + | RDW-CV | 13.1 | 11.0 - 14.5 % | [facility] | | | | | | LABORATORY | | + + + + + + | Platelet | 204 | 150 - 400 K/uL | [facility] | | | Count | | | LABORATORY | | + + + + + + | MPV | 8.0 | 7.4 - 10.3 fL | [facility] | | | | | | LABORATORY | | + + + + + + | % nRBC | 0 | /100 WBC | [facility] | | | | | | LABORATORY | | + + + + + + | % | 90 | % | [facility] | | | Neutrophils | | | LABORATORY | | + + + + + + | % | 6 | % | [facility] | | | Lymphocytes | | | LABORATORY | | + + + + + + | % Monocytes | 3 | % | [facility] | | | | | | LABORATORY | | + + + + + + | % Basophils | 0 | % | [facility] | | | | | | LABORATORY | | + + + + + + | Absolute | 15.1 (H) | 2.0 - 7.3 K/uL | [facility] | | | Neutrophils | | | LABORATORY | | + + + + + + | Absolute | 1.0 | 1.0 - 3.4 K/uL | [facility] | | | Lymphocytes | | | LABORATORY | | + + + + + + | Absolute | 0.5 | 0.0 - 0.8 K/uL | [facility] | | | Monocytes | | | LABORATORY | | + + + + + + | Absolute | 0.0 | 0.0 - 0.1 K/uL | [facility] | | | Basophils | | | LABORATORY | | + + + + + + | Platelet | Adequate | | [facility] | | | Estimate | | | LABORATORY | | + + + + + + | Manual Diff | No | | [facility] | | | Performed | | | LABORATORY | | + + + + + + + + | Specimen | + + | Blood specimen | | (specimen) - Other | + + + + + + + | Performing | Address | City/State/Zipcode | Phone Number | | Organization | | | | + + + + + | [facility] | [address] [facility] | [place] [address] | [phone] | | [facility] | | | | | LABORATORY | | | | + + + + + | [facility] | [address] [facility] | [place] [address] | [phone] | | LABORATORY | | | | + + + + + Comprehensive metabolic panel (01/12/2010 12:26 PM PDT) + + + + + + | Component | Value | Ref Range | Performed | Pathologist | | | | | At | Signature | + + + + + + | Na | 136 | 135 - 145 | [facility] | | | | | mmol/L | LABORATORY | | + + + + + + | K | 3.7 | 3.5 - 5.0 | [facility] | | | | | mmol/L | LABORATORY | | + + + + + + | Cl | 106 | 98 - 109 mmol/L | [facility] | | | | | | LABORATORY | | + + + + + + | CO2 | 21 (L) | 22 - 30 mmol/L | [facility] | | | | | | LABORATORY | | + + + + + + | Calcium | 8.7 | 8.5 - 10.5 | [facility] | | | | | mg/dL | LABORATORY | | + + + + + + | BUN | 6 (L) | 7 - 23 mg/dL | [facility] | | | | | | LABORATORY | | + + + + + + | Creatinine | 0.74 | 0.60 - 1.20 | [facility] | | | | | mg/dL | LABORATORY | | + + + + + + | Glucose | 109 (H)Comment: | 65 - 99 mg/dL | [facility] | | | | normals 65 to 94 mg/dL | | LABORATORY | | + + + + + + | ELP Total | 6.8 | 6.3 - 8.0 g/dL | [facility] | | | Protein | | | LABORATORY | | + + + + + + | Albumin | 3.5 | 3.5 - 5.0 g/dL | [facility] | | | | | | LABORATORY | | + + + + + + | Alkaline | 63 | 38 - 110 U/L | [facility] | | | Phosphatase | | | LABORATORY | | + + + + + + | ALT | 13 | 5 - 50 U/L | [facility] | | | | | | LABORATORY | | + + + + + + | AST | 18 | 5 - 40 U/L | [facility] | | | | | | LABORATORY | | + + + + + + | Bilirubin, | 1.5 | 0.1 - 1.5 mg/dL | [facility] | | | Total | | | LABORATORY | | + + + + + + | Estimated | >60Comment: Reference | mL/min/1.73m2 | [facility] | | | GFR | Range for GFR estimate: | | LABORATORY | | | | Persistent | | | | | | GFR <60 is consistent | | | | | | with Chronic Kidney | | | | | | Disease | | | | | | For , | | | | | | multiply the calculated | | | | | | GFR by 1.21 | | | | + + + + + + | Anion Gap | 9 | 5 - 15 mmol/L | [facility] | | | | | | LABORATORY | | + + + + + + + + | Specimen | + + | Blood specimen | | (specimen) - Other | + + + + + + + | Performing | Address | City/State/Zipcode | Phone Number | | Organization | | | | + + + + + | [facility] | [address] [facility] | [place] [address] | [phone] | | [facility] | | | | | LABORATORY | | | | + + + + + | [facility] | [address] [facility] [address] [address] | [place] [address] | [phone] | | LABORATORY | | | | + + + + + Lipase (01/12/2010 12:26 PM PDT) + +---------+ + + + | Component | Value | Ref Range | Performed | Pathologist | | | | | At | Signature | + +---------+ + + + | Lipase | <14 (L) | 22 - 51 U/L | [facility] | | | | | | LABORATORY | | + +---------+ + + + + + | Specimen | + + | Blood specimen | | (specimen) - Other | + + + + + + + | Performing | Address | City/State/Zipcode | Phone Number | | Organization | | | | + + + + + | [facility] | [address] [address] [address] | [place] [address] | [phone] | | [facility] | | | | | LABORATORY | | | | + + + + + | [facility] | [address] [facility] [facility] [address] | [place] [address] | [phone] | | LABORATORY | | | | + + + + + UA w/Microscopic w/Culture if Indicated (01/12/2010 12:20 PM PDT) + + + + + + | Component | Value | Ref Range | Performed | Pathologist | | | | | At | Signature | + + + + + + | URINE | Void | | [facility] | | | SOURCE | | | LABORATORY | | + + + + + + | Glucose, | Negative | Negative | [facility] | | | Urine | | | LABORATORY | | + + + + + + | Protein, | 30 (A) | Negative mg/dL | [facility] | | | Urine | | | LABORATORY | | + + + + + + | Bilirubin, | Negative | Negative | [facility] | | | Urine | | | LABORATORY | | + + + + + + | Urobilinoge | 0.2-1.0 | 0.2 - 1.0 mg/dL | [facility] | | | n, Urine | | | LABORATORY | | + + + + + + | pH, Urine | 5.5 | 5.0 - 9.0 | [facility] | | | | | | LABORATORY | | + + + + + + | Blood, | Small (A) | Negative | [facility] | | | Urine | | | LABORATORY | | + + + + + + | Ketones, | 80 | Negative mg/dL | [facility] | | | Urine | | | LABORATORY | | + + + + + + | Nitrite, | Positive (A) | Negative | [facility] | | | Urine | | | LABORATORY | | + + + + + + | Leukocyte | Large (A) | Negative | [facility] | | | Esterase, | | | LABORATORY | | | Urine | | | | | + + + + + + | Clarity | Hazy | | [facility] | | | | | | LABORATORY | | + + + + + + | Specific | 1.009 | 1.002 - 1.035 | [facility] | | | Lacey | | | LABORATORY | | + + + + + + | Color, | Yellow | | [facility] | | | Urine | | | LABORATORY | | + + + + + + | RBC UA | 29 (H) | 0 - 2 /hpf | [facility] | | | | | | LABORATORY | | + + + + + + | WBC UA | >180 (H) | 0 - 2 /hpf | [facility] | | | | | | LABORATORY | | + + + + + + | SQUAMOUS | 5 (H) | 0 - 2 /hpf | [facility] | | | EPITHELIAL | | | LABORATORY | | | UA | | | | | + + + + + + | AMORPHOUS | Few | | [facility] | | | CRYSTALS | | | LABORATORY | | + + + + + + | BACTERIA UA | 4+ (A) | | [facility] | | | | | | LABORATORY | | + + + + + + | MUCUS UA | Trace | | [facility] | | | | | | LABORATORY | | + + + + + + | WBC CLUMPS | Few | | [facility] | | | UA | | | LABORATORY | | + + + + + + + + | Specimen | + + | Urine specimen | | (specimen) - Other | + + + + + + + | Performing | Address | City/State/Zipcode | Phone Number | | Organization | | | | + + + + + | [facility] | [address] [facility] | [place] [address] | [phone] | | [facility] | | | | | LABORATORY | | | | + + + + + | [facility] | [address] [facility] | [place] [address] | [phone] | | LABORATORY | | | | + + + + + HCG screen, urine (01/12/2010 12:20 PM PDT) + + + + + + | Component | Value | Ref Range | Performed | Pathologist | | | | | At | Signature | + + + + + + | Preg Test, | Negative | Negative | [facility] | | | Ur | | | LABORATORY | | + + + + + + + + | Specimen | + + | Urine specimen | | (specimen) - Other | + + + + + + + | Performing | Address | City/State/Zipcode | Phone Number | | Organization | | | | + + + + + | [facility] | [address] [facility] | [place] [address] | [phone] | | [facility] | | | | | LABORATORY | | | | + + + + + | [facility] | [address] [facility] | [place] [address] | [phone] | | LABORATORY | | | | + + + + + Culture, Urine (01/12/2010 12:20 PM PDT) + + + + + + | Component | Value | Ref Range | Performed | Pathologist | | | | | At | Signature | + + + + + + | Final | Greater than 100,000 | | [facility] | | | Result | cfu/ml Escherichia coli | | LABORATORY | | + + + + + + | Organism | EC | | [facility] | | | Type | | | LABORATORY | | + + + + + + + + | Specimen | + + | Urine specimen | | (specimen) - Other | + + + + +--------+ + | Organism | Antibiotic | Method | Susceptibility | + + +--------+ + | Escherichia coli | Ampicillin | [facility] | >=32: Resistant | + + +--------+ + | Escherichia coli | Ampicillin + | [facility] | 8: Sensitive | | | Sulbactam | | | + + +--------+ + | Escherichia coli | Cefazolin | [facility] | <=4: Sensitive | + + +--------+ + | Escherichia coli | Ceftriaxone | [facility] | <=1: Sensitive | + + +--------+ + | Escherichia coli | Ciprofloxacin | [facility] | <=0.25: Sensitive | + + +--------+ + | Escherichia coli | Ertapenem | [facility] | <=0.5: Sensitive | + + +--------+ + | Escherichia coli | Gentamicin | [facility] | <=1: Sensitive | + + +--------+ + | Escherichia coli | Levofloxacin | [facility] | <=0.12: Sensitive | + + +--------+ + | Escherichia coli | Nitrofurantoin | [facility] | 32: Sensitive | + + +--------+ + | Escherichia coli | Piperacillin + | [facility] | <=4: Sensitive | | | Tazobactam | | | + + +--------+ + | Escherichia coli | Tobramycin | [facility] | <=1: Sensitive | + + +--------+ + | Escherichia coli | Trimethoprim + | [facility] | >=320: Resistant | | | Sulfamethoxazole | | | + + +--------+ + + + + + + | Performing | Address | City/State/Zipcode | Phone Number | | Organization | | | | + + + + + | [facility] | [address] | [place] [address] | [phone] | | [facility] | | | | | LABORATORY | | | | + + + + + | [facility] | [address] | [place] [address] | [phone] | | LABORATORY | | | | + + + + + documented in this encounter Visit Diagnoses Not on filedocumented in this encounter"
--- OUTSIDE RECORDS SUMMARY | ~2019-09-20 | XMS | Encounter Summary ---
Demographics + + + | Address | [address] | | | [place] [address] | + + + | Home Phone | | + + + | Preferred Language | Unknown | + + + | Marital Status | Single | + + + | Islam Affiliation | 1013 | + + + | Race | Unknown | + + + | Ethnic Group | Unknown | + + + Author + + + | Author | [facility] | | | and Jeffana | + + + | Organization | [facility] | | | [...] Team Providers + +------+ + | Care Public Area Attendant Name | Role | Phone | + [...] of other | | 2013 | | [facility] | DO [address] | normal | | | | AND DELIVERY IP | [address] | (Primary Dx) | | | | [address] | [place] [address] | | | | | [place], [place] | [phone] | | | | | [address] | | | | | | [phone] | | | +--------+ + + + [...] the mother does. You ll both benefit. [facility], [address] [place] [address], [place] [address]. All rights reserve d. This information is [...] if you don't know what it is [id number] [place] [address]. All rights reserve d. This information is [...] How? 1 Language barrier Pt. Language: 1 Consult-waste water worker/physician specialists/Psych- ordered - Consult type? 1 [...] + + | [facility] | [address] [facility] [address] [facility] [address] | [place] [address] | [phone] | | [facility] | | | [...] - 1.030 | [facility] | | | [address] | | | [facility] | | [...] | + + + + + | [facility] | [address] [place] [address] NE | [place] [address] | [phone] | | [facility] | | | [...] - 1.030 | [facility] | | | [place], | | | [facility] | | [...] + + | [facility] | [address] [facility] [address] | [place] [address] | [phone] | | [facility] | | | | | LABORATORY | | | | + + + + + documented in this encounter Visit Diagnoses + + | Diagnosis | + + | Supervision of other normal - Primary | + + documented in this encounter
--- OUTSIDE RECORDS SUMMARY | ~2019-09-20 | XMS | Encounter Summary ---
Demographics + + + | Address | [address] | | | [place] [address] | + + + | Home Phone | | + + + | Preferred Language | Unknown | + + + | Marital Status | Single | + + + | Latter-Day Affiliation | 1013 | + + + [...] Team Providers + +------+ + | Care Degreaser Operator Name | Role | Phone | [...] | | [facility] [address] | [place] [address] | | | | | [place] | [phone] | | | | | [place] | | | | | | [address] | | | | | | [phone] | | | +--------+ + + + [...] + + | [facility] | [address] | [place] [address] | [phone] | | [facility] | | | | | LABORATORY | | | | + + + + + documented in this encounter Visit Diagnoses + + | Diagnosis | + + | Supervision of other normal - Primary | + + documented in this encounter"
--- OUTSIDE RECORDS SUMMARY | ~2019-09-20 | XMS | Encounter Summary ---
Demographics + + + | Address | [address] | | | [place] [address] | + + + | Home Phone [...] Team Providers + +------+ + | Care Grape Crusher Name | Role | Phone | + [...] | | | | | | [place] | | | | | | [address] | | | | | | [phone] | | | +--------+ + + + [...]
--- OUTSIDE RECORDS SUMMARY | ~2019-09-20 | XMS | Encounter Summary ---
Demographics + + + | Address | [address] | | | [place] [address] | + + + | Home Phone | | + + + | Preferred Language | Unknown | + + + | Marital Status | Single | + + + | Synagogue Affiliation | 1013 | + + + | Race | Unknown | + + + | Ethnic Group | Unknown | + + + Author + + + | Author | [facility] | | | and Jeffana | + + + | Organization | [facility] | | [...] Team Providers + +------+ + | Care Ballast Regulator Operator Name | Role | Phone | [...] 2012 | | [facility] | BLOCK FEEDER | (needs meds | | | | [facility] | | prescribed a month | | | | [address] | | ago called into new | | | | [place] | | pharmacy) | | | | [address] | | | | | | [phone] | | | +--------+--------+ + + + [...]
--- OUTSIDE RECORDS SUMMARY | ~2019-09-20 | XMS | Encounter Summary ---
Demographics + + + | Address | [address] | | | [place] [address] | + + + | Home Phone | | + + + | Preferred Language | Unknown | + + + | Marital Status | Single | + + + | Evangelical Affiliation | 1013 | + + + | Race | Unknown | + + + | Ethnic Group | Unknown | + + + Author + + + | Author | [facility] | | | and Jeffana | + + + | Organization | [facility] | | | and [...] Team Providers + +------+ + | Care Aging Room Operator Name | Role | Phone | + +------+ + | Gordon Rivero MD | PCP | | + +------+ + Encounter Details +--------+ + + + + | Date | Type | Department | Care Team | Description | +--------+ + + + + | 07/21/ | Hospital | [facility] | Pat, | Supervision of other | | 2013 | Encounter | [facility] | Jenna Spencer MD | normal ; | | | | [facility] | [address] | Polysubstance abuse | | | | [address] | [place] [address] | | | | | [place] | [phone] | | | | | [address] | | | | | | [phone] | | | +--------+ + + + [...] + | VAGINAL PATHOGENS | Routin | 07/21/2013 | | Results for this | | DNA | e | 10:54 AM | | procedure are in the | | | | PST | | results section. | + +--------+ + + + | DRUGS OF ABUSE, | Routin | 07/21/2013 | Supervision of | Results for this | | SCREEN, URINE | e | 10:54 AM | other normal | procedure are in the | | | | PST | | results section. | | | | | Polysubstance abuse | | + +--------+ + + + | C. TRACHOMATIS AND | Routin | 07/21/2013 | | Results for this | | N. GONORRHOEAE, NAAT | e | 10:54 AM | | procedure are in the | | (APTIMA) | | PST | | results section. | + +--------+ + + + documented in this encounter Results Vaginal Pathogens DNA (07/21/2013 10:54 AM PST) + + + [...] | | vaginalis, | | | [facility] | | | DNA probe | | [...] + + + | [facility] | [address] [place] [address] NE | [place] [address] | [phone] | | [facility] | | | | | LABORATORY | | | | + + + + + C. trachomatis and N. gonorrhoeae, NAAT (APTIMA) (07/21/2013 10:54 AM PST) + + + + + ---+ | Component | Value | Ref Range | Performed | Pathologis t | | | | | At | Signature | + + + + + ---+ | Specimen | URINE | | [facility] | | | Source | | | [facility] | | | | | | [facility] | | | | | | LABORATORY | | + + + + + ---+ | Neisseria | NegativeComment: Test | Negative | [facility] | | | gonorrhoeae | is Performed at [facility], | | [facility] | | | rRNA PCR | [place] | | CORE | | | |Test [facility] Per[facility] [place] | | LABORATORY | | + + + + + ---+ | Chlamydia | NegativeComment: Test | Negative | [facility] | | | trachomatis | is Performed at [facility], | | [facility] | | | rRNA PCR | [place] | | CORE | | | |Test is Performed at [facility] [place] | | LABORATORY | | + + + + + ---+ + + | Specimen | + + | Urine specimen | | (specimen) | + + + + + + + | Performing | Address | City/State/Zipcode | Phone Number | | Organization | | | | + + + + + | [facility] | [address] [place] [address] NE | [place] [address] | [phone] | | [facility] | | | [...] | 17.50 (L) | >=20.00 mg/dL | [facility] | | | Urine | Comment: | | [facility] | | | | | | [facility]ORE | | | | Specimen dilute. | | LABORATORY | | + + + + + + | pH, Urine | 6.9 | 5.0 - 8.0 | [facility] | | | | | | [facility] | | | | | | [...] + + + | [facility] | [address] [facility] [address] [facility] [address] | [place] [address] | [phone] | | [facility] | | | [...]
--- OUTSIDE RECORDS SUMMARY | ~2019-09-20 | XMS | Encounter Summary ---
Demographics + + + | Address | [address] | | | [place] [address] | + + + | Home Phone | | + + + | Preferred Language | Unknown | + + + | Marital Status | Single | + + + | Yarsanism Affiliation | 1013 | + + + [...] Team Providers + +------+ + | Care Telehealth Case Manager Name | Role | Phone | + +------+ + | Gordon Rivero MD | PCP | | + +------+ + Encounter Details +--------+ + + + + | Date | Type | Department | Care Team | Description | +--------+ + + + + | 07/21/ | Hospital | [facility] | Pat, | Supervision of other | | 2013 | Encounter | [facility] | Jenna Spencer MD | normal ; | | | | CLINICAL LAB SERVS | [address] | Polysubstance abuse | | | | [address] | [place] [address] | | | | | [place] | [phone] | | | | | [address] | | | | | | [phone] | | | +--------+ + + + [...] + + + | [address] | [address] [place] [address] NE | [place] [address] | [phone] | | [facility] | | | [...] | | gonorrhoeae | is Performed at [facility], | | [facility] | | | rRNA PCR | [place] | | CORE | | | |Test [facility] Per[facility] [place] | | LABORATORY | | + + + + + ---+ | Chlamydia | NegativeComment: Test | Negative | [facility] | | | trachomatis | is Performed at [facility], | | [facility] | | | rRNA PCR | [place] | | CORE | | | |Test is Performed at [facility] [place] | | LABORATORY | | + + + + + ---+ + + | Specimen | + + | Urine specimen | | (specimen) | + + + + + + + | Performing | Address | City/State/Zipcode | Phone Number | | Organization | | | | + + + + + | [facility] | [address] [place] [address] [place] | [place] [address] | [phone] | | [facility] CORE | | | [...] + + + | [address] | [address] [facility] [address] | [place] [address] | [phone] | | [facility] | | | [...]
--- OUTSIDE RECORDS SUMMARY | ~2019-09-20 | XMS | Encounter Summary ---
Demographics + + + | Address | [address] | | | [place] [address] | + + + | Home Phone | | + + + | Preferred Language | Unknown | + + + | Marital Status | Single | + + + | Faith Affiliation | 1013 | + + + [...] Team Providers + +------+ + | Care Shearer Screen Measurer And Trimmer Name | Role | Phone | + +------+ + | Meet Small MD | PCP | | + +------+ + Reason for Visit + + + | Reason | Comments | + + + | ED Follow-up | 06/03/14 [place] - Right Arm Pain | + + + Encounter Details +--------+ + + + + | Date | Type | Department | Care Team | Description | +--------+ + + + + | 06/05/ | Telephone | [facility] | Meet Small | ED Follow-up | | 2013 | | [facility] | MD [address] | (06/03/14 [place] | | | | [facility] [address] | [place], | [place] - Right Arm | | | | [place] | [place] [address] | Pain ) | | | | [place] | [phone] | | | | | [address] | | | | | | [phone] | | | +--------+ + + + [...]
--- OUTSIDE RECORDS SUMMARY | ~2019-09-20 | XMS | Encounter Summary ---
Demographics + + + | Address | [address] | | | [place] [address] | + + + | Home Phone | | + + + | Preferred Language | Unknown | + + + | Marital Status | Single | + + + | Mandaen Affiliation | 1013 | + + + | Race | Unknown | + + + | Ethnic Group | Unknown | + + + Author + + + | Author | [facility] | | | and Jeffana | + + + | Organization | [facility] | | | [...] Team Providers + +------+ + | Care Glucose And Syrup Weigher Name | Role | Phone | + [...] + + | 01/26/ | Telephone | [facility] | Gordon Rivero MD | Other (Medication | | 2013 | | [facility] | [address] | Refill Request from | | | | [facility] [address] | [place] [address] | Patient) | | | | [place] | [phone] | | | | | [place] | | | | | | [address] | | | | | | [phone] | | | +--------+ + + + [...]
--- OUTSIDE RECORDS SUMMARY | ~2019-09-20 | XMS | Encounter Summary ---
Demographics + + + | Address | [address] | | | [place] [address] | + + + | Home Phone | | + + + | Preferred Language | Unknown | + + + | Marital Status | Single | + + + | Islam Affiliation | 1013 | + + + | Race | Unknown | + + + | Ethnic Group | Unknown | + + + Author + + + | Author | [facility] | | | and Jeffana | + + + | Organization | [facility] | [...] Team Providers + +------+ + | Care Transcription Coordinator Name | Role | Phone | + +------+ + | Gordon Rivero MD | PCP | | + +------+ + Encounter Details +--------+ + + + + | Date | Type | Department | Care Team | Description | +--------+ + + + + | 07/24/ | Hospital | [facility] | Pat, | Supervision of other | | 2013 | Encounter | [facility] | Jenna Spencer MD | normal | | | | [address] | [address] [facility] | | | | | [place], [place] | [place] [address] | | | | | [address] | [phone] | | | | | [phone] | | | +--------+ + + + [...] + | MISCELLANEOUS LAB | | | [phone] | + +---------+ + + | MISCELANIOUS LAB | | | [phone] | + +---------+ + + documented in this encounter Visit Diagnoses + + | Diagnosis | + + | Supervision of other normal | + + documented in this encounter"
--- OUTSIDE RECORDS SUMMARY | ~2019-09-20 | XMS | Encounter Summary ---
Demographics + + + | Address | [address] | | | [place] [address] | + + + | Home Phone [...] + + + | Author | [facility] | | | and Jeffana | + + + | Organization | [facility] | | | [...] Team Providers + +------+ + | Care Process Lead Name | Role | Phone | + +------+ + | Gordon Rivero MD | PCP | | + +------+ + Reason for Visit + + + | Reason | Comments | + + + | Routine | 34+5, Janie states that she has been having some [place] | | Visit | this morning for [...] | [facility] [address] | [place] [address] | | | | | [place] | [phone] | | | | | [place] | | | | | | [address] | | | | | | [phone] | | | +--------+ + + + [...] send me records: Gordon Rivero MD [address] [place] [address] documented in this encounter Progress Notes Abundio [...] 3. Possible hydrocephaly: MRI pending, seen by [facility]. Need assistance for delivery anton e [...] ventriculomegally: has scheduled MRI & echo [facility]. I called and spoke with [facility] staff who will fax records today. [...] son Joey FOB not involved. Born in [place], staying with [employer] friend Marie & her kids & fiancee, looking for own place. Looking for work, working with [employer] & [employer]. [facility] Feeding: BF Contraception: louis Global Technical Writer: ERMA Guerrero PCP from [facility]. Plan: Q visit UDS Need MFM [...] for prophylactic vaccination with combined | | hyzrttnqry-gsatjjv-zzcezvnul (DTP) vaccine | + + documented in this encounter
--- OUTSIDE RECORDS SUMMARY | ~2019-09-20 | XMS | Encounter Summary ---
Demographics + + + | Address | [address] | | | [place] [address] | + + + | Home Phone [...] Team Providers + +------+ + | Care Senior Sharepoint Architect Name | Role | Phone | + +------+ + | Adelita Pierce | PCP | | + +------+ + Encounter Details +--------+ + + + + | Date | Type | Department | Care Team | Description | +--------+ + + + + | 01/12/ | Hospital | [facility] | Smitha Pryor | | | 2009 - | Encounter | [facility] | Inactive [place], | | | | | SURGICAL [address] | MD Felicia Dunlap | | | 01/15/ | | [address] | [address] [place] [address] [place] | | | 2009 | | [place], [place] | [address] [place], [place] | | | | | [address] | [address] | | | | | [phone] | | | +--------+ + + + [...] discharge and bedside consult. Smitha Pryor MD [facility]/trs /[id number] A PST A PST :1985 MLS#: [id number] cc: MD Adelita Milian ARNP Authenticated and Edited by Yolette Pryor MD On 01/26/10 3:48:20 PM [facility] - 01/26/2010 12:00 AM PDTElec tronically signed by Ethan Kaufman at 05/31/2013 2:12 AM PDTdocumented in this encounter Progress Notes [facility] - 01/17/2010 12:00 AM PDT 13 12:38 AM [facility] - 01/16/2010 12:00 AM PDT [facility] - 01/16/2010 12:00 AM PDT documented in [...] + + | [address] | [address] [facility] [address] | [place] [address] | [phone] | | [facility]ORE | | | | | LABORATORY | | | | + + + + + | [facility] | [address] | [place] [address] | [phone] | | LABORATORY | | | | [...] [facility] | [place] [address] | [phone] | | [facility] | | | | | LABORATORY | | | | + + + + + | [facility] | [address] [facility] | [place] [address] | [phone] | | LABORATORY | | | | [...] [facility] | [place] [address] | [phone] | | [facility] | | | | | LABORATORY | | | | + + + + + | [facility] | [address] [facility] | [place] [address] | [phone] | | LABORATORY | | | | [...] + + | [address] | [address] | [place] [address] | [phone] | | [facility] CORE | | | | | LABORATORY | | | | + + + + + | [facility] | [address] | [place] [address] | [phone] | | LABORATORY | | | | [...] normal. MARS EXAM | | | NUMBER: [id number] ABDOMEN 1V X-FXX=[id number] | | + + + + + [...] | Osseous structures are normal. | | [place] [place] EXAM NUMBER: [id number] ABDOMEN 1V X-HUR=[id number] | | IMPRESSION: | | IMPRESSION: | [...] wo CONT DATE OF EXAM: 01/12/2010 | [place] | | INDICATION: right flank pain [...] colon. MARS EXAM NUMBER: | | | [id number] CT PELVIS wo CONT X-IOJ=[id number] | | + + + + + [...] the colon. | | MARS EXAM NUMBER: [id number] CT PELVIS wo CONT X-VKT=[id number] | | IMPRESSION: | | IMPRESSION: | [...] + + | Performing | Address | City/State/[facility] | Phone Number | | Organization | [...] wo CONT DATE OF EXAM: 01/12/2010 | [facility] | | INDICATION: right flank [...] pelvis. Lots of feces throughout the colon. [place] [place] EXAM NUMBER: | | | [id number] CT ABD wo CONT X-WHD=[id number] | | + + + + + [...] the colon. | | MARS EXAM NUMBER: [id number] CT ABD wo CONT X-VTG=[id number] | | IMPRESSION: | | IMPRESSION: | [...] [facility] | [place] [address] | [phone] | | PETER CORE | | | | | LABORATORY | | | | + + + + + | [facility] | [address] [facility] | [place] [address] | [phone] | | LABORATORY | | | | [...] [facility] | [place] [address] | [phone] | | [facility] | | | | | LABORATORY | | | | + + + + + | [facility] | [address] [facility] [address] | [place] [address] | [phone] | | LABORATORY | | | | [...] + | [address] | [address] [facility] [address] | [place] [address] | [phone] | | [facility] CORE | | | | | LABORATORY | | | | + + + + + | [facility] | [address] [facility] [address] | [place] [address] | [phone] | | LABORATORY | | | | [...] 1.035 | [facility] | | | [place] | | | LABORATORY | | + [...] + | [address] | [address] [facility] | [place] [address] | [phone] | | PETER CORE | | | | | LABORATORY | | | | + + + + + | [facility] | [address] [facility] | [place] [address] | [phone] | | LABORATORY | | | | [...] + + | [address] | [address] [facility] | [place] [address] | [phone] | | PET[facility] CORE | | | | | LABORATORY | | | | + + + + + | [facility] | [address] [facility] | [place] [address] | [phone] | | LABORATORY | | | | [...] + + | [address] | [address] | [place] [address] | [phone] | | PET[facility] CORE | | | | | LABORATORY | | | | + + + + + | [facility] | [address] | [place] [address] | [phone] | | LABORATORY | | | | + + + + + documented in this encounter Visit Diagnoses Not on filedocumented in this encounter"
--- OUTSIDE RECORDS SUMMARY | ~2019-09-20 | XMS | Encounter Summary ---
Demographics + + + | Address | [address] | | | [place] [address] | + + + | Home Phone [...] | + + +---------+ + | Cindycecil Buthcer | ECON | Unknown | | + + +---------+ + Care Team Providers + +------+ + | Care Cigar Roller Name | Role | Phone | + +------+ + | Gordon Rivero MD | PCP | | + +------+ + Encounter Details +--------+ + + + + | Date | Type | Department | Care Team | Description | +--------+ + + + + | 07/20/ | Hospital | [facility] [place] [facility] | Abundio Taveras MD [address] | Supervision of other | | 2013 | Encounter | [facility] | [address] | normal | | | | CLINICAL LAB SERVS | [place] [address] | | | | | [address] | [phone] | | | | | [place], [place] | | | | | | [address] | | | | | | [phone] | | | +--------+ + + + [...] + + | [facility] [address] | [address] [facility] [address] | [place] [address] | [phone] | | [facility]ORE | | | [...] + | [address] | [address] [facility] [address] | [place] [address] | [phone] | | [facility] | | | [...] = | | | | | | Yir-Tfptontudcfa-VLm | | | | | | = [...] = | | | | | | Lmk-Zjqzzixydxyo-NHy | | | | | | = [...] + + + | [address] | [address] [place] [address] [place] | [place] [address] | [phone] | | [facility] | | | [...] + + | [facility] | [address] [facility] [address] | [place] [address] | [phone] | | [facility] | | | [...] | + + + + + | [facility] | [address] [place] [address] [place] | [place] [address] | [phone] | | [facility] CORE | | | [...] + + | [address] | [address] [facility] [address] | [place] [address] | [phone] | | [facility] | | | [...] + + | [facility] | [address] [facility] [address] | [place] [address] | [phone] | | [facility]ORE | | | [...] | + + + + + | [facility] | [address] [place] [address] [place] | [place] [address] | [phone] | | PET[facility] CORE | | | [...] [address] | [place] [address] | [phone] | | [facility] | | | [...] + + | [address] | [address] [place] [address] | [place] [address] | [phone] | | [facility]ORE | | | [...]
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
== END 2019-09-20 19:37 | disposition home or self-care (01) ==
LOC: ED 17:57
DX: S63.602A Unspecified sprain of left thumb, initial encounter (principal); W22.8XXA Striking against or struck by other objects, initial encounter
CPT/HCPCS: 73140; 99283-25

== ENCOUNTER 2020-11-09 11:45 | Emergency (ER) | payer BC, OTHER ==
[~2020-11-09] VITALS: Ht 167.6 cm; Wt 90.7 kg
--- OUTSIDE RECORDS SUMMARY | 2020-11-09 11:48 | XMS ---
PreManage Notification: RUBEN PARRY Security Glass Blower Events No recent Security Events currently on file CRITERIA MET - ED - Positive COVID-19 Lab Result - [facility] CARE PROVIDERS CARRILLO SALAMANCA [facility] Current PHONE: [phone] SHAYNA FAUST Nurse Practitioner: Women's Health 09/21/2019-Current PHONE: [phone] Sharon has no Care Guidelines for this patient. Care History Medical/Surgical 02/20/2019 [facility]- PATIENT HAS [facility] AND NO PCP. E.D. VISIT COUNT (12 MO.) 1 [facility] TOTAL 1 NOTE: Visits indicate total known visits. ED/UCC VISIT TRACKING (12 MO.) 11/09/2020 11:[address] [facility] [place] TYPE: Emergency COMPLAINT: - FACIAL SWELLING INPATIENT VISIT TRACKING (12 MO.) No inpatient visits to display in this time frame [email or web address]
[2020-11-09] MEDS ORDERED: DOXYCYCLINE HY100 MG PO (12:02)
== END 2020-11-09 12:07 | disposition home or self-care (01) ==
LOC: ED 11:45
DX: L02.01 Cutaneous abscess of face (principal)
CPT/HCPCS: 99282

== ENCOUNTER 2022-06-11 10:55 | Emergency (ER) | payer OTHER ==
[~2022-06-11] VITALS: Ht 167.6 cm; Wt 83.5 kg
[~2022-06-11 10:55] MED LIST changes: +DOXYCYCLINE HY100 MG PO
--- OUTSIDE RECORDS SUMMARY | 2022-06-11 10:58 | XMS ---
PreManage Notification: RUBEN PARRY Security Inspector Coated Fabrics Events No recent Security Events currently on file CRITERIA MET - [facility] CARE PROVIDERS JADYN [facility] Current PHONE: [phone] SHAYNA FAUST Nurse Practitioner: Women's Health 09/21/2019-Current PHONE: [phone] Sharon has no Care Guidelines for this patient. Care History Medical/Surgical 02/20/2019 [facility]- PATIENT HAS [facility] AND NO PCP. E.D. VISIT COUNT (12 MO.) [address] [place] [address] TOTAL 1 NOTE: Visits indicate total known visits. ED/UCC VISIT TRACKING (12 MO.) 06/11/2022 10:[address] [facility] [place] TYPE: Emergency COMPLAINT: - CHEST PAIN INPATIENT VISIT TRACKING (12 MO.) No inpatient visits to display in this time frame [email or web address]
[2022-06-11] MEDS ORDERED: SPRINTEC1 EACH PO (11:09)
[2022-06-11] MEDS ORDERED: VYVANSE40 MG PO (11:09)
[2022-06-11] MEDS ORDERED: BUPROPION XL300 MG PO (11:09)
--- NOTE | 2022-06-12 | EKG ---
[facility] [address] [facility] [place], [place] [address] Signed Normal sinus rhythm Normal ECG No previous ECGs available Confirmed by NANDO MCWILLIAMS MD ([id number]) on 06/12/2022 12:00:15 AM Electronically Signed By: NANDO MCWILLIAMS MD 06/12/22 0000 PATIENT NAME: RUBEN PARRY SASKIA Electrocardiogram DATE OF : 87 PHYSICIAN: NANDO MCWILLIAMS MD REPORT #: [id number] REPORT IS CONFIDENTIAL AND NOT TO BE RELEASED WITHOUT AUTHORIZATION
== END 2022-06-11 15:45 | disposition home or self-care (01) ==
LOC: ED 10:55
DX: R07.2 Precordial pain (principal); Z87.442 Personal history of urinary calculi
CPT/HCPCS: 36415; 71045; 80053; 83735; 84484; 84703; 85025; 93005; 93010; 99285-25; A9270

== ENCOUNTER 2024-11-22 20:52 | Emergency (ER) | payer OTHER ==
[~2024-11-22] VITALS: Ht 167.6 cm; Wt 92.0 kg
[~2024-11-22 20:52] MED LIST changes: +BUPROPION XL300 MG PO; +SPRINTEC1 EACH PO; +VYVANSE40 MG PO
[2024-11-22 21:08] LABS: BILIRUBIN, URINE NEGATIVE (negative); BLOOD/HGB, URINE TRACE-L (Negative); KETONE, URINE >=80 (Negative); LEUK ESTERASE, URINE NEGATIVE (negative); NITRITE, URINE NEGATIVE (negative)
[2024-11-22] MEDS ORDERED: MOUNJARO2.5 MG/0.5 SQ (21:13)
[2024-11-22 21:14] LABS: BACTERIA, URINE RARE /hpf (negative); CASTS, URINE NONE SEEN \\lpf; COLLECTION TYPE, URINE CLEAN CATCH; CRYSTALS, URINE NONE SEEN (0-1+); EPITHELIAL CELLS, URINE SQUAMOUS 1+ /lpf (0-1+); RED BLOOD CELLS, URINE 0-1 /hpf (0-5); REFLEX CULTURE, URINE No (No)
[2024-11-22] MEDS ORDERED: MAGNESIUM GLYC100 MG PO (21:14)
[2024-11-22] MEDS ORDERED: TRAZODONE HCL100 MG PO (21:14)
[2024-11-22 21:57] LABS: BASOPHILS 1.1 % (0-2); EOSINOPHILS 1.5 % (0-6); HEMATOCRIT 41.1 % (35.0-50.0); HEMOGLOBIN 14.1 g/dL (12.0-18.0); LYMPHOCYTES 57.9 % (24-44); MCH 32.5 (27-36); MCHC 34.4 g/dl (30-36); MCV 94.6 fl (81-99); MONOCYTES 6.2 % (0-12); NEUTROPHILS 33.3 % (39-80); PLATELET COUNT 219 K/uL (140-440); RBC 4.34 M/ul (4.3-5.7); RDW 13.2 (10.5-15.0)
[2024-11-22 22:11] LABS: ALBUMIN 3.7 g/dL (3.4-5.0); ALBUMIN/GLOBULIN RATIO 1.19 (1.1-2.4); ANION GAP 15.6 (7-21); BILIRUBIN, TOTAL 0.3 mg/dL (0.2-1.0); BUN/CREATININE RATIO 9.75 (6.0-28.6); CALCIUM 8.4 mg/dL (8.5-10.1); CREATININE, SERUM 0.82 mg/dL (0.55-1.02); POTASSIUM 3.6 mmol/L (3.5-5.1); PROTEIN, TOTAL 6.8 g/dL (6.4-8.2)
[2024-11-22] MEDS ORDERED: CYCLOBENZAPRINE10 MG PO (22:39)
[2024-11-22] MEDS ORDERED: DOCUSATE SODIU100 M1 PO (22:44)
[2024-11-22] MEDS ORDERED: CYCLOBENZAPRINE HCL 10 MG HOME.PACK PO ONE (22:45)
[2024-11-22 23:00] VITALS: BP 141/86
== END 2024-11-22 23:00 | disposition home or self-care (01) ==
LOC: ED 20:52
PROVIDERS: Family Medicine
DX: K59.00 Constipation, unspecified (principal); M79.18 Myalgia, other site; Z87.442 Personal history of urinary calculi; Z79.899 Other long term (current) drug therapy
CPT/HCPCS: 36415; 74018; 74176; 80053; 81001; 84703; 85025; 99284-25

== ENCOUNTER 2025-07-27 18:52 | Emergency (ER) | payer OTHER ==
[~2025-07-27] VITALS: Ht 167.6 cm; Wt 76.5 kg
--- NOTE | ~2025-07-27 | EKG ---
[facility] [address] [facility] [place], [place] [address] Draft EKG completed, results pending confirmation PATIENT NAME: SOHANRUBEN Electrocardiogram DATE OF : 87 PHYSICIAN: PRELIMINARY REPORT #: [id number] REPORT IS CONFIDENTIAL AND NOT TO BE RELEASED WITHOUT AUTHORIZATION
--- NOTE | ~2025-07-27 | EKG ---
[facility] [address] [facility] [place], [place] [address] Draft EKG completed, results pending confirmation PATIENT NAME: SOHANRUBEN Electrocardiogram DATE OF : 87 PHYSICIAN: PRELIMINARY REPORT #: [id number] REPORT IS CONFIDENTIAL AND NOT TO BE RELEASED WITHOUT AUTHORIZATION
[~2025-07-27 18:52] MED LIST changes: +CYCLOBENZAPRINE10 MG PO; +DOCUSATE SODIU100 M1 PO; +MAGNESIUM GLYC100 MG PO; +MOUNJARO2.5 MG/0.5 SQ; +TRAZODONE HCL100 MG PO
[2025-07-27 19:58] LABS: BASOPHILS 1.2 % (0.1-1.2); EOSINOPHILS 2.5 % (0.7-5.8); LYMPHOCYTES 42.4 % (19.3-51.7); MCH 31.9 PG (25.6-32.2); MCHC 33.6 g/dL (32.2-35.5); MCV 94.9 fL (79.4-94.8); MONOCYTES 5.3 % (4.7-12.5); NEUTROPHILS 48.3 % (34.0-71.1); RBC 4.48 M/uL (3.93-5.22)
[2025-07-27] MEDS ORDERED: FAMOTIDINE 20 MG/ 2 ML VIAL IV ONE (20:00)
[2025-07-27 20:15] LABS: ALT (SGPT) 17.0 U/L (14-59); AST (SGOT) 16.0 U/L (15-37); GLOMERULAR FILTRATION RATE,EST 107.0 mL/min (>60); PROTEIN, TOTAL 7.0 g/dL (6.4-8.2); UREA NITROGEN 13.0 mg/dL (7-18)
[2025-07-27] MEDS ORDERED: ASPIRIN 81 MG CHEW PO ONE (21:00)
[2025-07-27 21:46] LABS: BLOOD/HGB, URINE NEGATIVE (Negative); KETONE, URINE NEGATIVE (Negative); LEUK ESTERASE, URINE NEGATIVE (negative); NITRITE, URINE NEGATIVE (negative)
[2025-07-27 22:25] LABS: AMPHETAMINES, URINE NEGATIVE (NEGATIVE); BARBITURATES, URINE NEGATIVE (NEGATIVE); BENZODIAZEPINE, URINE NEGATIVE (NEGATIVE); CANNABINOID, URINE NEGATIVE (NEGATIVE); COCAINE, URINE NEGATIVE (NEGATIVE); ECSTASY, URINE NEGATIVE (NEGATIVE); FENTANYL, URINE NEGATIVE (NEGATIVE); METHADONE, URINE NEGATIVE (NEGATIVE); OPIATES, URINE NEGATIVE (NEGATIVE); OXYCODONE, URINE NEGATIVE (NEGATIVE); PHENCYCLIDINE, URINE NEGATIVE (NEGATIVE)
[2025-07-28 01:43] VITALS: BP 132/93
[2025-07-29] MEDS ORDERED: CARVEDILOL3.125 MG PO (18:47)
[2025-07-29] MEDS ORDERED: LIPITOR40 MG PO (18:47)
[2025-07-29] MEDS ORDERED: ISOSORBIDE MONO20 MG PO (18:48)
[2025-07-29] MEDS ORDERED: ISOSORBIDE MONO30 MG PO (21:20)
== END 2025-07-28 01:24 | disposition short-term general hospital (02) ==
LOC: ED 18:52
PROVIDERS: Internal Medicine
DX: I21.4 Non-ST elevation (NSTEMI) myocardial infarction (principal); Z87.442 Personal history of urinary calculi
CPT/HCPCS: 36415; 71045; 80053; 80307; 81003; 83690; 83735; 84484; 84703; 85025; 85379; 93005; 93010; 96374; 99285-25; A9270

== ENCOUNTER 2025-07-29 18:10 | Emergency (ER) | payer OTHER ==
[~2025-07-29] VITALS: Ht 167.6 cm; Wt 74.6 kg
--- OUTSIDE RECORDS SUMMARY | 2025-07-29 18:17 | XMS ---
PreManage Notification: RUBEN PARRY Security Space Planner Events No recent Security Events currently on file CRITERIA MET - [facility] - 2 Visits in 30 Days CARE PROVIDERS SHAYNA FAUST Nurse Practitioner: Women's Health 09/21/2019-Current PHONE: [phone] MIGUE SAMUEL Physician Utility Porter Priyank K. PHONE: Unknown CARRILLO SALAMANCA Emergency Medicine Current PHONE: [phone] Sharon has no Care Guidelines for this patient. Care History Medical/Surgical 02/20/2019 [facility] \R\- [facility] CASE MANAGEMENT REFERRAL MADE- PATIENT HAS [facility] AND NO PCP. E.D. VISIT COUNT (12 MO.) [address] [facility] TOTAL 3 NOTE: Visits indicate total known visits. ED/UCC VISIT TRACKING (12 MO.) 07/29/2025 18:10 [facility] TYPE: Emergency COMPLAINT: - MEDICATION REACTION 07/27/2025 18:53 [facility] TYPE: Emergency COMPLAINT: - BLOOD IN STOOL 11/22/2024 20:52 [facility] TYPE: Emergency COMPLAINT: - FLANK PAIN DIAGNOSES: - Constipation, unspecified - Myalgia, other site - Other long-term (current) drug therapy - Personal history of urinary calculi - Unspecified abdominal pain INPATIENT VISIT TRACKING (12 MO.) 07/28/2025 02:00 [facility] TYPE: Medical Surgical COMPLAINT: - NESTEMI [email or web address]
[2025-07-29] MEDS ORDERED: SODIUM CHLORIDE 0.9% 500 ML IV ONE (18:45)
[2025-07-29] MEDS ORDERED: LIPITOR40 MG PO (18:47)
[2025-07-29] MEDS ORDERED: CARVEDILOL3.125 MG PO (18:47)
[2025-07-29] MEDS ORDERED: ISOSORBIDE MONO20 MG PO (18:48)
[2025-07-29 19:07] LABS: BASOPHILS 0.7 % (0.1-1.2); EOSINOPHILS 2.1 % (0.7-5.8); LYMPHOCYTES 31.1 % (19.3-51.7); MCH 31.9 PG (25.6-32.2); MCHC 33.7 g/dL (32.2-35.5); MCV 94.6 fL (79.4-94.8); MONOCYTES 6.7 % (4.7-12.5); NEUTROPHILS 59.3 % (34.0-71.1); RBC 4.29 M/uL (3.93-5.22)
[2025-07-29 19:26] LABS: ALT (SGPT) 21.0 U/L (14-59); AST (SGOT) 20.0 U/L (15-37); GLOMERULAR FILTRATION RATE,EST 111.0 mL/min (>60); PROTEIN, TOTAL 6.8 g/dL (6.4-8.2); UREA NITROGEN 11.0 mg/dL (7-18)
[2025-07-29 20:12] LABS: INR 1.02 (0.80-1.30); PROTIME 12.7 Sec (11.2-14.2)
[2025-07-29] MEDS ORDERED: ISOSORBIDE MONO30 MG PO (21:20)
[2025-07-29 22:01] VITALS: BP 135/86
--- NOTE | 2025-07-31 18:39 | EKG ---
[facility] [address] [facility] [place] [address] Signed Normal sinus rhythm Normal ECG When compared with ECG of 27-JUL-2025 20:51, No significant change was found Confirmed by Ramírez Carreon MD () on 07/31/2025 6:39:16 PM Electronically Signed By: RAMÍREZ CARREON MD 07/31/25 1839 PATIENT NAME: DANIELLE PARRYLINDSEY KRUGER Electrocardiogram DATE OF : 87 PHYSICIAN: RAMÍREZ CARREON MD REPORT #: [id number] REPORT IS CONFIDENTIAL AND NOT TO BE RELEASED WITHOUT AUTHORIZATION
== END 2025-07-29 22:01 | disposition home or self-care (01) ==
LOC: ED 18:10
PROVIDERS: Emergency Medicine; Family Medicine
DX: R53.81 Other malaise (principal); T44.7X5A Adverse effect of beta-adrenoreceptor antagonists, initial encounter; T46.3X5A Adverse effect of coronary vasodilators, initial encounter; Z79.899 Other long term (current) drug therapy
CPT/HCPCS: 36415; 80053; 83735; 83880; 84484; 84703; 85025; 85379; 85610; 93005; 93010; 96374; 99283-25; J2405; J7040